=== PATIENT | female | born 1935 | race Caucasian/White ===

== ENCOUNTER 2017-07-21 11:06 | Inpatient (IN) | payer MEDICARE ==
[2017-07-21] VITALS (15 sets, daily range): BP systolic 71–125; BP diastolic 45–65; PULSE 62–81; RESP 16–37; TEMP 98–98.5; O2SAT 97–100
[~2017-07-21] VITALS: Ht 160 cm; Wt 66.9 kg
[2017-07-21] MEDS ORDERED: LISI2.5T3 PO (11:53)
[2017-07-21] MEDS ORDERED: FLUT50SP EACH NARE (11:53)
[2017-07-21] MEDS ORDERED: FURO40TA PO (11:53)
[2017-07-21] MEDS ORDERED: ASPI81TA23 PO (11:53)
[2017-07-21] MEDS ORDERED: FOSA70TA PO (11:53)
[2017-07-21] MEDS ORDERED: VITA1000 PO (11:53)
[2017-07-21] MEDS ORDERED: FURO1TAB62 PO (11:53)
[2017-07-21] MEDS ORDERED: PLAQ200T PO (11:53)
[2017-07-21] MEDS ORDERED: POTA-163 PO (11:53)
[2017-07-21] MEDS ORDERED: FOLI1TAB6 PO (11:53)
[2017-07-21] MEDS ORDERED: METH2.5T PO (11:53)
[2017-07-21] MEDS ORDERED: CALTCHW5 PO (11:53)
[2017-07-21] MEDS ORDERED: LEVOTAB PO (11:53)
[2017-07-21] MEDS ORDERED: PHENYLEPH/NS 1000 MCG/10 ML SYR IV ONE (12:00)
[2017-07-21] MEDS ORDERED: ePHEDrine/NS 25 MG/5 ML SYRINGE IV ONE (12:00)
[2017-07-21] MEDS ORDERED: PROPOFOL 200 MG/20 ML AMP IV ONE (12:00)
[2017-07-21] MEDS ORDERED: LIDOCAINE HCL 1% PF 5 ML SYRINGE OTHER ONE (12:00)
[2017-07-21] MEDS ORDERED: SODIUM CHLOR 0.9% 250 ML INJ 250 ML IV ONE ×2 (12:00→12:30)
--- NOTE | 2017-07-21 12:02 | PD ---
HPI Chief Complaint: Dizziness Time Seen by Provider: 11:41 Travel History International Travel<30 days: No Contact w/Intl Traveler<30days: No Traveled to known affect area: No History of Present Illness HPI 82-year-old female states that she flew here yesterday from [place] and she's been feeling lightheaded and ill since. She states she had 2 episodes of nonbloody diarrhea but denies any specific pain, fever or other concurrent complaints. She states she feels worse when she moves around. She states that she took her blood pressure medication this morning. She states they have been lowering her blood pressure medication recently. She states she is here on vacation. She denies other modifying factors. PFSH Past Medical History Hx Anticoagulant Therapy: Yes (ASA 81MG DAILY) Autoimmune Disease: Yes (RA) Congestive Heart Failure: Yes ?: Not Past Surgical History Tonsillectomy: Yes Other Surgery: Yes (VEIN STRIPPING) Social History Alcohol Use: Yes (COUPLE TIMES PER WEEK) Tobacco Use: No Substance Use: No Allergies-Medications (Allergen,Severity, Reaction): Coded Allergies: ciprofloxacin (Verified Allergy, Unknown, 07/21/17) Reported Meds & Prescriptions Reported Meds & Active Scripts Active Reported Fosamax (Alendronate Sodium) 70 Mg Tab 70 Mg PO Q7D Methotrexate 2.5 Mg Tab 12.5 Mg PO Q7D Plaquenil (Hydroxychloroquine Sulfate) 200 Mg Tab 200 Mg PO DAILY Take with food Vitamin D-1000 (Cholecalciferol) 1,000 Unit Tab 1,000 Units PO DAILY Caltrate 600+D Chew (Calcium Carbonate-Vitamin D Chew) 600-400 Mg-Unit Chew 1 Tab PO DAILY Folic Acid 1 Mg Tablet 1 Mg PO BID Fluticasone Nasal [place] 50 Mcg/Act Naspr 50 Mcg EACH NARE BID 50 mcg/spray Levocetirizine 5 Mg Tab 5 Mg PO DAILY Aspirin EC (Aspirin) 81 Mg Tabdr 81 Mg PO DAILY Lisinopril 2.5 Mg Tab 1.25 Mg PO DAILY Lasix (Furosemide) 20 Mg Tab 20 Mg PO EVERY OTHER DAY Furosemide 40 Mg Tab 40 Mg PO EVERY OTHER DAY Potassium Chloride ER (Potassium Chloride) 20 Meq Tab 20 Meq PO DAILY Review of Systems Except as stated in HPI: all other systems reviewed are Neg Physical Exam Narrative GENERAL: Thin, well-developed patient. SKIN: Warm and dry. HEAD: Normocephalic and atraumatic. EYES: No injection or drainage. ENT: No nasal drainage noted. NECK: Supple, trachea midline. CARDIOVASCULAR: Regular rate and rhythm RESPIRATORY: Breath sounds equal bilaterally. No accessory muscle use. GASTROINTESTINAL: Abdomen soft, non-tender, nondistended. EXTREMITIES: No edema. NEUROLOGICAL: Awake and alert. Motor and sensory grossly within normal limits. Normal speech. Data Data Last Documented VS Vital Signs Date Time Temp Pulse Resp B/P (MAP) Pulse Ox O2 Delivery O2 Flow Rate FiO2 07/21/17 12:35 80 18 79/50 (60) 97 Room Air 07/21/17 11:24 98.5 Orders Orders Magnesium (Mg) (07/21/17 11:47) Phosphorus (Po4) (07/21/17 11:47) Complete Blood Count With Diff (07/21/17 11:47) Comprehensive Metabolic Panel (07/21/17 11:47) Urinalysis - C+S If Indicated (07/21/17 11:47) Act Partial Throm Time (Ptt) (07/21/17 11:47) Prothrombin Time / Inr (Pt) (07/21/17 11:47) Chest, Single Ap (07/21/17 ) Electrocardiogram (07/21/17 ) Iv Access Insert/Monitor (07/21/17 11:47) Ecg Monitoring (07/21/17 11:47) Oximetry (07/21/17 11:47) Influenzae A/B Antigen (07/21/17 11:47) Sodium Chlor 0.9% 250 Ml Inj (Ns 250 Ml (07/21/17 12:00) Lactic Acid (07/21/17 11:47) Troponin I (07/21/17 11:56) Ckmb (Isoenzyme) Profile (07/21/17 11:56) Blood Culture (07/21/17 12:20) Vancomycin Inj (Vancomycin Inj) (07/21/17 12:20) Piperacil-Tazo 4.5 Gm Premix (Zosyn 4.5 (07/21/17 12:20) Sodium Chlor 0.9% 250 Ml Inj (Ns 250 Ml (07/21/17 12:30) CKMB (07/21/17 11:51) CKMB% (07/21/17 11:51) Aspirin (Aspirin) (07/21/17 12:45) Sodium Chlorid 0.9% 500 Ml Inj (Ns 500 M (07/21/17 12:45) Urine Culture (07/21/17 12:24) Ct Abd/Pel W/O Iv Contrast (07/21/17 ) Admit Order (Ed Use Only) (07/21/17 12:52) Labs Laboratory Tests Test 07/21/17 11:51 07/21/17 12:24 White Blood Count 21.1 TH/MM3 Red Blood Count 3.65 MIL/MM3 Hemoglobin 12.4 GM/DL Hematocrit 37.4 % Mean Corpuscular Volume 102.3 FL Mean Corpuscular Hemoglobin 34.0 PG Mean Corpuscular Hemoglobin Concent 33.2 % Red Cell Distribution Width 13.3 % Platelet Count 76 TH/MM3 Mean Platelet Volume 10.1 FL CBC Comment AUTO DIFF Differential Total Cells Counted 100 Neutrophils % (Manual) 71 % Band Neutrophils % 22 % Lymphocytes % 2 % Monocytes % 2 % Neutrophils # (Manual) 20.3 TH/MM3 Metamyelocytes 3 % Differential Comment FINAL DIFF MANUAL Platelet Estimate LOW Platelet Morphology Comment NORMAL Prothrombin Time 15.4 SEC Prothromb Time International Ratio 1.5 RATIO Activated Partial Thromboplast Time 31.9 SEC Blood Urea Nitrogen 45 MG/DL Creatinine 3.10 MG/DL Random Glucose 85 MG/DL Total Protein 6.6 GM/DL Albumin 3.4 GM/DL Calcium Level 8.9 MG/DL Phosphorus Level 4.1 MG/DL Magnesium Level 1.8 MG/DL Alkaline Phosphatase 131 U/L Aspartate Amino Transf (AST/SGOT) 182 U/L Alanine Aminotransferase (ALT/SGPT) 126 U/L Total Bilirubin 2.2 MG/DL Sodium Level 134 MEQ/L Potassium Level 4.9 MEQ/L Chloride Level 99 MEQ/L Carbon Dioxide Level 23.1 MEQ/L Anion Gap 12 MEQ/L Estimat Glomerular Filtration Rate 14 ML/MIN Lactic Acid Level 3.8 mmol/L Total Creatine Kinase 277 U/L Creatine Kinase MB 5.6 NG/ML Creatine Kinase MB % 2.0 % Troponin I 1.56 NG/ML Urine Collection Type CLEAN CATCH Urine Color YELLOW Urine Turbidity MOD Urine pH 5.0 Urine Specific [place] 1.025 Urine Protein 30 mg/dL Urine Glucose (UA) NEG mg/dL Urine Ketones TRACE mg/dL Urine Occult Blood LARGE Urine Nitrite NEG Urine Bilirubin NEG Urine Leukocyte Esterase MOD Urine RBC 100-200 /hpf Urine WBC 25-49 /hpf Urine WBC Clumps MOD Urine Squamous Epithelial Cells 0-5 /hpf Urine Renal Epithelial Cells > 8 /hpf Urine Bacteria MANY /hpf Urine Yeast (Budding) FEW Microscopic Urinalysis Comment CULTURE INDICATED Urine Collection Time 12:24 [facility] Medical Decision Making Medical Screen Exam Complete: Yes Emergency Medical Condition: Yes Medical Record Reviewed: Yes (past history confirmed) Interpretation(s) EKG shows underlying artifact that is difficult to determine rhythm that appears irregular with left bundle branch block without prior for comparison CBC & BMP Diagram 07/21/17 11:51 Total Protein 6.6, Albumin 3.4, Calcium Level 8.9, Phosphorus Level 4.1, Magnesium Level 1.8, Alkaline Phosphatase 131 H, Aspartate Amino Transf (AST/ SGOT) 182 H, Alanine Aminotransferase (ALT/SGPT) 126 H, Total Bilirubin 2.2 H Last 24 hours Impressions Chest X-Ray 07/21/17 0000 Signed Impressions: Service Date/Time: Friday, July 21, 2017 11:56 - CONCLUSION: 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 No acute cardiopulmonary process. 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 No acute cardiopulmonary process. Edward Sims MD Abdomen/Pelvis CT 07/21/17 0000 Signed Impressions: Service Date/Time: Friday, July 21, 2017 13:28 - CONCLUSION: 8 x 5 mm calculus left ureter level of L4 with secondary obstructive uropathy. Gallstones. Uncomplicated diverticuli of the colon. Degenerative changes of the lumbar spine. Edward Sims MD Differential Diagnosis URI, anemia, renal failure, gastroenteritis.... Narrative Course Will check blood work, chest x-ray, EKG and dose with small amount of IV fluids and reevaluate Patient has elevated white blood cell count. Will add on blood cultures and dose with broad-spectrum coverage of vancomycin and Zosyn. Lactate has came back at 3.8. If urinalysis shows no signs of infection she will need for possible CT imaging to rule out occult infection. She was given initial 250 cc bolus given CHF history but now that she also has concurrent acute renal failure and no signs of active CHF Will repeat this and she will likely need more fluids. She will need to be monitored closely in the ICU given persistent hypotension and need for gentle hydration. She also has a concurrent HI without active chest pain. We'll give aspirin for this and this will need to be monitored. given ct will discuss with urology and updated icu physician, patient will now be given a total of 1500 mL's of normal saline to keep blood pressure is stable. Given her history of CHF fluids have been given slower Critical Care Narrative Aggregate critical care time was 110 minutes. Time to perform other separately billable procedures was not included in the critical care time. My time did not include minutes spent treating any other patients simultaneously or on activities that did not directly contribute to the patient's treatment. The services I provided to this patient were to treat and/or prevent clinically significant deterioration that could result in: shock, I provided critical care services requiring my management, as noted below: Chart data review, documentation time, medication orders and management, vital sign assessments/reviewing monitor data, ordering and reviewing lab tests, ordering and interpreting/reviewing x-rays and diagnostic studies, care of the patient and discussion of the patient with the admitting physicians. Sepsis Criteria SIRS Criteria (2 or more): WBC > 61067, < 4000 or > 10% bands Sepsis Criteria (SIRS+source): Infect source susp/known Severe Sepsis (+one): Lactate >2 Criteria Outcome: Meets severe sepsis criteria Physician Communication Physician Communication dr barrientos agrees to admit in [facility] with ct abdomen, requests to talk with cardiology dr lei states no another intervention at this time dr monaco requests to talk with IR dr kulkarni states patient should get stent given current scenario dr monaco states to have patient go straight to the OR and was given dr lei' s contact information dr barrientos updated and is on his way to see patient dr monaco called at [phone] and evac here now, given updated, dr barrientos at bedside Diagnosis Primary Impression: Hypotension Qualified Codes: I95.9 - Hypotension, unspecified Additional Impressions: Renal failure Qualified Codes: N19 - Unspecified kidney failure NSTEMI (non-ST elevated myocardial infarction) Leukocytosis Qualified Codes: D72.829 - Elevated white blood cell count, unspecified Lactic acidosis Ureteral stone with hydronephrosis Sepsis Qualified Codes: A41.9 - Sepsis, unspecified organism Admitting Information Admitting Physician Requests: Admit Sammi Giron MD Jul 21, 2017 12:02
--- NOTE | 2017-07-21 12:04 | RADRPT ---
EXAM DATE/TIME: 07/21/2017 11:56 [facility] COMPARISON: No previous studies available for comparison. INDICATIONS : Dizziness, cough. MEDICAL HISTORY : Congestive heart failure. SURGICAL HISTORY : None. ENCOUNTER: Initial ACUITY: 2 days PAIN SCORE: 0/10 LOCATION: Bilateral chest FINDINGS: A single view of the chest demonstrates the lungs to be symmetrically aerated without evidence of mas s, infiltrate or effusion. The cardiomediastinal contours demonstrate atherosclerotic changes aorta and compensated borderline cardiomegaly. Osseous structures are intact. 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 No acute cardiopulmonary process. Edward Sims MD on July 21, 2017 at 12:02 Board Certified Radiologist. This report was verified electronically.
[2017-07-21 12:12] LABS: HEMATOCRIT 37.4 % (35.0-46.0); HEMOGLOBIN 12.4 GM/DL (11.6-15.3); MEAN CELL VOLUME 102.3 FL (80.0-100.0); MEAN CORPUSCULAR HGB CONC 33.2 % (32.0-36.0); MEAN PLATELET VOLUME 10.1 FL (7.0-11.0); PLATELET COUNT 76 TH/MM3 (150-450); RED BLOOD COUNT 3.65 MIL/MM3 (4.00-5.30); RED CELL DISTRIBUTION WIDTH 13.3 % (11.6-17.2); WHITE BLOOD COUNT 21.1 TH/MM3 (4.0-11.0)
[2017-07-21 12:18] LABS: CHLORIDE 99 MEQ/L (98-107); INTERNATIONAL NORMALIZED RATIO 1.5 RATIO; PROTHROMBIN TIME - PATIENT 15.4 SEC (9.8-11.6); SODIUM (NA) 134 MEQ/L (136-145)
[2017-07-21] MEDS ORDERED: VANCOMYCIN INJ 1,000 MG in SODIUM CHLOR 0.9% 250 ML INJ 250 ML IV STA (12:20)
[2017-07-21] MEDS ORDERED: PIPERACIL-TAZO 4.5 GM PREMIX 100 ML IV STA (12:20)
[2017-07-21 12:21] LABS: ALBUMIN 3.4 GM/DL (3.4-5.0); BICARBONATE 23.1 MEQ/L (21.0-32.0); BLOOD UREA NITROGEN 45 MG/DL (7-18); CALCIUM 8.9 MG/DL (8.5-10.1); GLUCOSE,RANDOM 85 MG/DL (74-106); MAGNESIUM 1.8 MG/DL (1.5-2.5)
[2017-07-21 12:23] LABS: TROPONIN I 1.56 NG/ML (0.02-0.05)
[2017-07-21 12:24] LABS: ALT (GPT) 126 U/L (10-53)
[2017-07-21 12:25] LABS: AST (GOT) 182 U/L (15-37); GLOMERULAR FILTRATION RATE 14 ML/MIN (>89); PHOSPHORUS 4.1 MG/DL (2.5-4.9)
[2017-07-21 12:26] LABS: TOTAL BILIRUBIN ADULT 2.2 MG/DL (0.2-1.0); TOTAL PROTEIN 6.6 GM/DL (6.4-8.2)
[2017-07-21 12:27] LABS: ALKALINE PHOSPHATASE 131 U/L (45-117)
[2017-07-21 12:33] LABS: BANDS 22 % (0-6); LYMPHOCYTES 2 % (9-44); METAMYELOCYTES 3 % (0-1); MONOCYTES 2 % (0-8); NEUTROPHIL # MANUAL DIFF 20.3 TH/MM3 (1.8-7.7); POLYS (SEG NEUTROPHILS) 71 % (16-70)
[2017-07-21 12:36] LABS: BLOOD, URINE LARGE (NEG); GLUCOSE,URINE NEG (NEG); KETONE, URINE TRACE mg/dL (NEG); NITRITE,URINE NEG (NEG); URINE LEUKOCYTE ESTERASE MOD (NEG)
[2017-07-21 12:38] LABS: BILIRUBIN, URINE NEG (NEG)
[2017-07-21 12:43] LABS: URINE COLOR YELLOW (YELLW/STRAW)
[2017-07-21 12:44] LABS: RBC, URINE 100-200 /hpf (0-3); RENAL EPITHELIAL CELLS > 8 /hpf; SQUAMOUS EPITHELIAL CELL URINE 0-5 /hpf (0-5); WHITE BLOOD CELL CLUMPS MOD
[2017-07-21 12:45] LABS: BACTERIA, URINE MANY /hpf
[2017-07-21] MEDS ORDERED: SODIUM CHLORID 0.9% 500 ML INJ 500 ML IV ONE (12:45)
[2017-07-21] MEDS ORDERED: ASPIRIN 325 MG TAB PO ONE (12:45)
--- NOTE | 2017-07-21 12:55 | EKG ---
Date Performed: 07/21/2017 Time Performed: 11:44:50 PTAGE: 82 years EKG: Baseline artifact present Unclear underlying rhythm LEFT BUNDLE BRANCH BLOCK ABNORMAL ECG NO PREVIOUS TRACING DOCTOR: Adilson Mercado Interpretating Date/Time 07/21/2017 12:53:29
--- NOTE | 2017-07-21 14:10 | RADRPT ---
EXAM DATE/TIME: 07/21/2017 13:28 [facility] COMPARISON: No previous studies available for comparison. INDICATIONS : General weakness. Diarrhea. Dizziness. ORAL CONTRAST: No oral contrast ingested. RADIATION DOSE: 12.05 CTDIvol (mGy) MEDICAL HISTORY : Congestive heart failure. SURGICAL HISTORY : Tonsillectomy. ENCOUNTER: Initial ACUITY: 1 day PAIN SCALE: 0/10 LOCATION: Abdomen. TECHNIQUE: Volumetric scanning of the abdomen and pelvis was performed. Using automated exposure control and ad justment of the mA and/or kV according to patient size, radiation dose was kept as low as reasonably achievable to obtain optimal diagnostic quality images. DICOM format image data is available electro nically for review and comparison. FINDINGS: Lung bases are clear. The osteoporotic bony structures reveal degenerative changes of the lower lumba r spine degenerative disc disease a vacuum sign L5-S1 and L4-5 with probable grade 1 spondylolisthesi s and facet arthritic changes. Vascular calcifications noted in the aorta and iliac vessels without e vidence of aneurysm formation. Urinary bladder is distended in the pelvis with normal uterus and adne xa. Scattered diverticuli uncomplicated or noted of the distal descending and primarily sigmoid colon . Liver is normal as is spleen with normal pancreas. Adrenal glands are benign. Gallstones are noted in the gallbladder which is impacted the largest being 4.3 cm in size. Uterus and adnexa are negative . There is a 8 x 5 mm calculus in left uret er at the level of L4 with secondary obstructive uropathy. CONCLUSION: 8 x 5 mm calculus left ureter level of L4 with secondary obstructive uropathy. Gallstones. Uncomplicated diverticuli of the colon. Degenerative changes of the lumbar spine. Edward Sims MD on July 21, 2017 at 13:59 Board Certified Radiologist. This report was verified electronically.
[2017-07-21] MEDS ORDERED: SODIUM CHLORIDE 0.9% FLUSH 10 ML FLUSH IV FLUSH PRN (15:45)
[2017-07-21] MEDS ORDERED: MAGNESIUM HYDROXIDE SUSP 30 ML CUP PO PRN (15:45)
[2017-07-21] MEDS ORDERED: BISACODYL 10 MG SUPP RECTAL PRN (15:45)
[2017-07-21] MEDS ORDERED: CHLORHEXIDINE GLUCONATE 2 % 1 PACK (2 CLOTHS) TOP PRN (15:45)
[2017-07-21] MEDS ORDERED: Vancomycin Consult Pharmacy 1 EA OTHER SCH (15:45)
[2017-07-21] MEDS ORDERED: MISCELLANEOUS NURSING INFORMATION XX SCH (15:45)
[2017-07-21] MEDS ORDERED: ONDANSETRON HCL 4 MG/2 ML VIAL IV PUSH PRN (15:45)
[2017-07-21] MEDS ORDERED: SENNOSIDES 8.6 MG TAB PO PRN (15:45)
[2017-07-21] MEDS ORDERED: LACTULOSE SYRUP 20 GM/30 ML CUP PO PRN (15:45)
[2017-07-21] MEDS ORDERED: TEMAZEPAM 15 MG CAP PO PRN (15:45)
[2017-07-21] MEDS ORDERED: SODIUM CHLOR 0.9% 1000 ML INJ 1,000 ML IV ONE (15:45)
--- NOTE | 2017-07-21 16:09 | HHI.HP ---
HPI Service Critical Care Medicine Primary Care Physician Unknown Admission Diagnosis hypotension, nstemi, renal failure Diagnosis: (1) Septic shock Diagnosis: Principal (2) Non-ST elevated myocardial infarction Diagnosis: Principal (3) Obstructive uropathy Diagnosis: Principal (4) Acute renal failure Diagnosis: Principal (5) Elevated liver enzymes Diagnosis: Principal (6) Lactic acidosis Diagnosis: Principal (7) Leukocytosis Diagnosis: Principal Chief Complaint: Fever and chills Travel History International Travel<30 Days: No Contact w/Intl Traveler <30 Da: No Traveled to Known Affected Are: No Sepsis Criteria SIRS Criteria (2 or more): Temp > 100.9 or < 96.8, WBC > 35921, < 4000 or > 10 % bands Sepsis Criteria (SIRS+source): Infect source susp/known Severe Sepsis (+one): Organ Dysfunction, Hypotension, Lactate >2 Septic Shock Criteria: Unresponsive to 30ml/kg fluid bolus Multiple Organ Dysfunction Syn: Evidence -2 organs failing Criteria Outcome: Meets multiple organ dys. criteria History of Present Illness This is a 82-year-old female with known history of rheumatoid arthritis, congestive heart failure, hypotension who presented to hospital because of fever and chills. Patient states that she is in normal state of health when she flew down here from [place] yesterday. While she was on a plane she developed fever and rigors. Patient states when she was walking yesterday she was very cold because of the eardrops at the airport. He stated a hotel last night and she did not improve and she continued to have chills and rigors. Because of that reason she came to the ER for evaluation. Patient had workup done emergency department found to have multiple abnormal findings with significant hypotension, however patient states that she has low blood pressure on a regular basis and this was diagnosed in April in [place]. Patient did have acute renal failure and after CT scan was performed to indicated patient had obstructed uropathy of the left ureter with multiple organ failure to include hypotension, liver enzyme elevation, renal failure. Patient was given minimal IV bolus in the emergency department, will give further IV fluid for blood pressure management. However patient does have history of hypotension which this could be her normal blood pressure. Patient was found to have elevated troponin with left bundle branch block on EKG. Cardiology was consulted for recommendations. Patient recommended ICU admission for critical care management. Patient be transferred to [facility] [place] for continued care. Review of Systems Constitutional: COMPLAINS OF: Fever, Chills, DENIES: Diaphoretic episodes, Fatigue, Weight gain, Weight loss, Dizziness, Change in appetite, Night Sweats Ears, nose, mouth, throat: DENIES: Hearing loss, Vertigo, Nasal discharge, Throat pain, Ear Pain, Running Nose, Sinus Pain, Toothache, Odynophagia Respiratory: DENIES: Apneas, Cough, Snoring, Wheezing, Hemoptysis, Sputum production, Shortness of breath Cardiovascular: DENIES: Chest pain, Palpitations, Syncope, Dyspnea on Exertion , Lower Extremity Edema, Orthopnea Gastrointestinal: DENIES: Abdominal pain, Black stools, Bloody stools, Constipation, Diarrhea, Nausea, Vomiting, Difficulty Swallowing, Anorexia Neurologic: DENIES: Abnormal gait, Headache, Localized weakness, Paresthesias, Seizures, Speech Problems, Tremor, Poor Balance Past Family Social History Allergies: Coded Allergies: ciprofloxacin (Verified Allergy, Unknown, 07/21/17) Past Medical History Low blood pressure Congestive heart failure Rheumatoid arthritis Past Surgical History Tonsillectomy Carpal tunnel surgery Vein surgery of legs Reported Medications Reported Meds & Active Scripts Active Reported Fosamax (Alendronate Sodium) 70 Mg Tab 70 Mg PO Q7D Methotrexate 2.5 Mg Tab 12.5 Mg PO Q7D Plaquenil (Hydroxychloroquine Sulfate) 200 Mg Tab 200 Mg PO DAILY Take with food Vitamin D-1000 (Cholecalciferol) 1,000 Unit Tab 1,000 Units PO DAILY Caltrate 600+D Chew (Calcium Carbonate-Vitamin D Chew) 600-400 Mg-Unit Chew 1 Tab PO DAILY Folic Acid 1 Mg Tablet 1 Mg PO BID Fluticasone Nasal [place] 50 Mcg/Act Naspr 50 Mcg EACH NARE BID 50 mcg/spray Levocetirizine 5 Mg Tab 5 Mg PO DAILY Aspirin EC (Aspirin) 81 Mg Tabdr 81 Mg PO DAILY Lisinopril 2.5 Mg Tab 1.25 Mg PO DAILY Lasix (Furosemide) 20 Mg Tab 20 Mg PO EVERY OTHER DAY Furosemide 40 Mg Tab 40 Mg PO EVERY OTHER DAY Potassium Chloride ER (Potassium Chloride) 20 Meq Tab 20 Meq PO DAILY Family History Reviewed is significant for mother having breast cancer, father with heart disease Social History Patient denies any tobacco or illicit drugs. Does drink alcohol occasionally. Physical Exam Vital Signs Vital Signs Date Time Temp Pulse Resp B/P (MAP) Pulse Ox O2 Delivery O2 Flow Rate FiO2 07/21/17 14:48 75 18 86/50 (62) 98 Room Air 07/21/17 14:23 73 18 78/50 (59) 98 Room Air 07/21/17 13:08 68 16 82/49 (60) 98 Room Air 07/21/17 12:35 80 18 79/50 (60) 97 Room Air 07/21/17 12:11 75 18 75/45 (55) 98 Room Air 07/21/17 12:05 73 18 71/47 (55) 98 Room Air 07/21/17 11:59 71 99 Room Air 07/21/17 11:58 79 18 87/47 (60) 99 Room Air 07/21/17 11:56 99 Room Air 07/21/17 11:24 98.5 81 18 74/49 (57) 99 Physical Exam GENERAL: Well-developed, well-nourished, in no acute distress. alert and orientated HEENT: Head is normocephalic without any lesions or masses noted. Facial features are symmetric. Eyes: Pupils equal round reactive to light. Extraocular muscles are intact. Conjunctivae were clear. Oropharyngeal: Pharynx without any erythema edema. Tongue is midline without deviation. Buccal mucosa is moist without any masses or lesions NECK: Supple without any masses. Trachea midline no deviation. No JVD, no bruits are appreciated CARDIAC: Regular rhythm, regular rate. S1/S2 are heard. 2/6 ejection murmur, no gallops or rubs. LUNGS: Clear to auscultation bilaterally. No wheeze, rhonchi or rales. No use of accessory muscles on inspiration or expiration. ABDOMEN: Soft, nontender. Nondistended. Bowel sounds heard in all 4 quadrants. No organomegaly or masses. Negative rebound, negative guarding EXTREMITIES: No edema, pulses are equal bilaterally. No cyanosis or clubbing NEUROLOGY: Mood and affect appear appropriate. Cranial nerves II through XII grossly intact. Muscle strength 5/5 in upper and lower extremities bilaterally. Deep tendon reflexes are 2+ in upper and lower extremities bilaterally. Laboratory Laboratory Tests Test 07/21/17 11:51 07/21/17 12:24 White Blood Count 21.1 Red Blood Count 3.65 Hemoglobin 12.4 Hematocrit 37.4 Mean Corpuscular Volume 102.3 Mean Corpuscular Hemoglobin 34.0 Mean Corpuscular Hemoglobin Concent 33.2 Red Cell Distribution Width 13.3 Platelet Count 76 Mean Platelet Volume 10.1 CBC Comment AUTO DIFF Differential Total Cells Counted 100 Neutrophils % (Manual) 71 Band Neutrophils % 22 Lymphocytes % 2 Monocytes % 2 Neutrophils # (Manual) 20.3 Metamyelocytes 3 Differential Comment FINAL DIFF MANUAL Platelet Estimate LOW Platelet Morphology Comment NORMAL Prothrombin Time 15.4 Prothromb Time International Ratio 1.5 Activated Partial Thromboplast Time 31.9 Blood Urea Nitrogen 45 Creatinine 3.10 Random Glucose 85 Total Protein 6.6 Albumin 3.4 Calcium Level 8.9 Phosphorus Level 4.1 Magnesium Level 1.8 Alkaline Phosphatase 131 Aspartate Amino Transf (AST/SGOT) 182 Alanine Aminotransferase (ALT/SGPT) 126 Total Bilirubin 2.2 Sodium Level 134 Potassium Level 4.9 Chloride Level 99 Carbon Dioxide Level 23.1 Anion Gap 12 Estimat Glomerular Filtration Rate 14 Lactic Acid Level 3.8 Total Creatine Kinase 277 Creatine Kinase MB 5.6 Creatine Kinase MB % 2.0 Troponin I 1.56 Urine Collection Type CLEAN CATCH Urine Color YELLOW Urine Turbidity MOD Urine pH 5.0 Urine Specific [place] 1.025 Urine Protein 30 Urine Glucose (UA) NEG Urine Ketones TRACE Urine Occult Blood LARGE Urine Nitrite NEG Urine Bilirubin NEG Urine Leukocyte Esterase MOD Urine RBC 100-200 Urine WBC 25-49 Urine WBC Clumps MOD Urine Squamous Epithelial Cells 0-5 Urine Renal Epithelial Cells > 8 Urine Bacteria MANY Urine Yeast (Budding) FEW Microscopic Urinalysis Comment CULTURE INDICATED Urine Collection Time 12:24 Date/Time Source Procedure Growth Status 07/21/17 12:30 Blood Peripheral Aerobic Blood Culture Pending Received 07/21/17 12:30 Blood Peripheral Anaerobic Blood Culture Pending Received 07/21/17 11:50 Nasal Aspirate Influenza Types A,B Antigen (JAVID) - Final NEGATIVE FOR FLU A AND B ANTIGEN.... Complete 07/21/17 12:24 Urine Clean Catch Urine Culture Pending Received Result Diagram: 07/21/17 1151 07/21/17 1151 Imaging Last Impressions Chest X-Ray 07/21/17 0000 Signed Impressions: Service Date/Time: Friday, July 21, 2017 11:56 - CONCLUSION: 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 No acute cardiopulmonary process. Edward Sims MD Abdomen/Pelvis CT 07/21/17 0000 Signed Impressions: Service Date/Time: Friday, July 21, 2017 13:28 - CONCLUSION: 8 x 5 mm calculus left ureter level of L4 with secondary obstructive uropathy. Gallstones. Uncomplicated diverticuli of the colon. Degenerative changes of the lumbar spine. Edward Sims MD Septic Shock Reassessment Septic shock perfusion: reassessment completed Caprini VTE Risk Assessment Caprini VTE Risk Assessment: Mod/High Risk (score >= 2) Caprini Risk Assessment Model Point Value = 1 Point Value = 2 Point Value = 3 Point Value = 5 Age 41-60 Minor surgery BMI > 25 kg/m2 Swollen legs Varicose veins or History of unexplained or recurrent spontaneous Oral contraceptives or hormone replacement Sepsis (< 1 month) Serious lung disease, including pneumonia (< 1 month) Abnormal pulmonary function Acute myocardial infarction Congestive heart failure (< 1 month) History of inflammatory bowel disease Medical patient at bed rest Age 61-74 Arthroscopic surgery Major open surgery (> 45 min) Laparoscopic surgery (> 45 min) Malignancy Confined to bed (> 72 hours) Immobilizing plaster cast Central venous access Age >= 75 History of VTE Family history of VTE Factor V Leiden Prothrombin [id number] Lupus anticoagulant Anticardiolipin antibodies Elevated serum homocysteine Heparin-induced thrombocytopenia Other congenital or acquired thrombophilia Stroke (< 1 month) Elective arthroplasty Hip, pelvis, or leg fracture Acute spinal cord injury (< 1 month) Prophylaxis Regimen Total Risk Factor Score Risk Level Prophylaxis Regimen 0-1 Low Early ambulation 2 Moderate Order ONE of the following: *Sequential Compression Device (SCD) *Heparin 5000 units SQ BID 3-4 Higher Order ONE of the following medications: *Heparin 5000 units SQ TID *Enoxaparin/Lovenox 40 mg SQ daily (WT < 150 kg, CrCl > 30 mL/min) *Enoxaparin/Lovenox 30 mg SQ daily (WT < 150 kg, CrCl > 10-29 mL/min) *Enoxaparin/Lovenox 30 mg SQ BID (WT < 150 kg, CrCl > 30 mL/min) AND/OR *Sequential Compression Device (SCD) 5 or more Highest Order ONE of the following medications: *Heparin 5000 units SQ TID (Preferred with Epidurals) *Enoxaparin/Lovenox 40 mg SQ daily (WT < 150 kg, CrCl > 30 mL/min) *Enoxaparin/Lovenox 30 mg SQ daily (WT < 150 kg, CrCl > 10-29 mL/min) *Enoxaparin/Lovenox 30 mg SQ BID (WT < 150 kg, CrCl > 30 mL/min) AND *Sequential Compression Device (SCD) Assessment and Plan Problem List: (1) Septic shock ICD Code: A41.9 - Sepsis, unspecified organism; R65.21 - Severe sepsis with septic shock (2) Non-ST elevated myocardial infarction ICD Code: I21.4 - Non-ST elevation (NSTEMI) myocardial infarction (3) Obstructive uropathy ICD Code: N13.9 - Obstructive and reflux uropathy, unspecified (4) Acute renal failure ICD Code: N17.9 - Acute kidney failure, unspecified (5) Elevated liver enzymes ICD Code: R74.8 - Abnormal levels of other serum enzymes (6) Leukocytosis ICD Code: D72.829 - Elevated white blood cell count, unspecified Status: Acute (7) Lactic acidosis ICD Code: E87.2 - Acidosis Status: Acute Assessment and Plan NEUROLOGY Patient clinically stable. Continue monitor neurological function PULMONOLOGY Clinically stable, continue O2 supplementation maintain O2 sats greater than 92% Incentive spirometry CARDIOLOGY Septic shock History of low blood pressure History of congestive heart failure Non-ST elevated myocardial infarctions Left bundle branch block We'll give 1 L normal saline bolus Start D5 normal saline at 84 cc/h Monitor blood pressure keep map greater than 65 Hold patient blood pressure medication this time Consult cardiology for recommendations Continue to trend cardiac enzymes Obtain echocardiogram Unable to use beta ayaz, nitroglycerin at this time due to low blood pressure Unable to use heparin IV secondary patient going to [place] GASTROENTEROLOGY Elevated liver enzymes Could be secondary to the hypoperfusion Monitor liver enzymes CT scan does indicate cholelithiasis with contracted gallbladder Obtain gallbladder ultrasound start healthy heart diet GENITOURINARY Obstructive uropathy with renal lithiasis in left ureter Acute renal failure Continue IV fluids Insert Kulkarni for input and output, strain all urine Consult urology for recommendations, patient going to [place] INFECTIOUS DISEASE Septic shock Leukocytosis with bandemia Lactic acidosis. Urinary tract infection Patient started on vancomycin and Zosyn Continue trend lactic acid Monitor cultures ENDOCRINOLOGY Check TSH Monitor glucose, start Accu-Cheks with sliding scale insulin if needed HEMATOLOGY Stable this time Monitor and transfuse if hemoglobin below 8.0 PROPHYLAXIS DVT prevention with sequential compression devices, avoid chemical prophylaxis at this time due to patient going to [place] GI protection: Pepcid LINES Peripheral IVs CODE STATUS Full code Critical care time 60 minutes excluding procedures Problem Qualifiers (1) Leukocytosis: Qualified Codes: D72.829 - Elevated white blood cell count, unspecified Hermann Bridges Jul 21, 2017 16:09
--- NOTE | 2017-07-21 17:13 | PD.CONS ---
HPI Service Urology Consult Requested By Reason for Consult Obstructing Urolithiasis; Sepsis Primary Care Physician Unknown Diagnosis: (1) Septic shock ICD Code: A41.9 - Sepsis, unspecified organism; R65.21 - Severe sepsis with septic shock (2) Non-ST elevated myocardial infarction ICD Code: I21.4 - Non-ST elevation (NSTEMI) myocardial infarction (3) Obstructive uropathy ICD Code: N13.9 - Obstructive and reflux uropathy, unspecified (4) Acute renal failure ICD Code: N17.9 - Acute kidney failure, unspecified (5) Elevated liver enzymes ICD Code: R74.8 - Abnormal levels of other serum enzymes (6) Lactic acidosis ICD Code: E87.2 - Acidosis (7) Leukocytosis ICD Code: D72.829 - Elevated white blood cell count, unspecified History of Present Illness 82yo female admitted with left flank pain and concern for sepsis. Patient was initially at [facility] where she was found to have an elevated WBC 21, Renal failure of Cr 3.1, and hypotension. CT scan identified left obstructing ureterolithiasis with an 8mm stone. Patient was also found to have elevated troponins, felt to be associated with the septic stone. Currently denies pain. Review of Systems ROS Limitations: Clinical Condition Constitutional: COMPLAINS OF: Fever Eyes: DENIES: Blurred vision Ears, nose, mouth, throat: DENIES: Hearing loss Respiratory: DENIES: Cough Cardiovascular: DENIES: Chest pain Gastrointestinal: COMPLAINS OF: Abdominal pain Integumentary: DENIES: Rash Hematologic/lymphatic: DENIES: Bruising Neurologic: DENIES: Headache Psychiatric: DENIES: Anxiety Except as stated in HPI: all other systems reviewed are Neg Past Family Social History Past Medical History CHF RA Past Surgical History Tonsillectomy Carpal tunnel surgery Vein surgery of legs Reported Medications Reported Meds & Active Scripts Active Reported Fosamax (Alendronate Sodium) 70 Mg Tab 70 Mg PO Q7D Methotrexate 2.5 Mg Tab 12.5 Mg PO Q7D Plaquenil (Hydroxychloroquine Sulfate) 200 Mg Tab 200 Mg PO DAILY Take with food Vitamin D-1000 (Cholecalciferol) 1,000 Unit Tab 1,000 Units PO DAILY Caltrate 600+D Chew (Calcium Carbonate-Vitamin D Chew) 600-400 Mg-Unit Chew 1 Tab PO DAILY Folic Acid 1 Mg Tablet 1 Mg PO BID Fluticasone Nasal [place] 50 Mcg/Act Naspr 50 Mcg EACH NARE BID 50 mcg/spray Levocetirizine 5 Mg Tab 5 Mg PO DAILY Aspirin EC (Aspirin) 81 Mg Tabdr 81 Mg PO DAILY Lisinopril 2.5 Mg Tab 1.25 Mg PO DAILY Lasix (Furosemide) 20 Mg Tab 20 Mg PO EVERY OTHER DAY Furosemide 40 Mg Tab 40 Mg PO EVERY OTHER DAY Potassium Chloride ER (Potassium Chloride) 20 Meq Tab 20 Meq PO DAILY Allergies: Coded Allergies: ciprofloxacin (Verified Allergy, Unknown, 07/21/17) Active Ordered Medications Current Medications Medications (Trade) Dose Ordered Sig/Bill Route Start Time Stop Time Status Last Admin (NS Flush) 2 ml UNSCH PRN IV FLUSH 07/21/17 15:45 (NS Flush) 2 ml BID IV FLUSH 07/21/17 21:00 (Zofran Inj) 4 mg Q6H PRN IV PUSH 07/21/17 15:45 (Restoril) 15 mg HS PRN PO 07/21/17 15:45 Miscellaneous Information 1 Q361D XX 07/21/17 15:45 (Chlorhexidine 2% Cloth) 3 pack Taper DAILY@04 TOP 07/22/17 04:00 07/18/18 03:59 (Chlorhexidine 2% Cloth) 3 pack UNSCH PRN TOP 07/21/17 15:45 (Summer-Colace) 1 tab BID PO 07/21/17 21:00 (Milk Of Magnesia Liq) 30 ml Q12H PRN PO 07/21/17 15:45 (Senokot) 17.2 mg Q12H PRN PO 07/21/17 15:45 (Dulcolax Supp) 10 mg DAILY PRN RECTAL 07/21/17 15:45 (Lactulose Liq) 30 ml DAILY PRN PO 07/21/17 15:45 Piperacillin Sod/ Tazobactam Sod 50 ml @ 100 mls/hr Q12H IV 07/22/17 01:00 Pharmacy Profile Note 0 ml @ 0 mls/hr UNSCH OTHER 07/21/17 15:45 Dextrose/Sodium Chloride 1,000 ml @ 84 mls/hr [id number] IV 07/21/17 15:45 (Pepcid) 20 mg HS PO 07/21/17 21:00 Family History Reviewed is significant for mother having breast cancer, father with heart disease Social History Patient denies any tobacco or illicit drugs. Does drink alcohol occasionally. Physical Exam Vital Signs Date Time Temp Pulse Resp B/P (MAP) Pulse Ox O2 Delivery O2 Flow Rate FiO2 07/21/17 17:00 97.7 81 20 84/50 (61) 07/21/17 16:27 97.7 74 20 88/51 (63) 97 07/21/17 15:53 07/21/17 15:48 74 18 94/51 (65) 97 Room Air 07/21/17 14:48 75 18 86/50 (62) 98 Room Air 07/21/17 14:23 73 18 78/50 (59) 98 Room Air 07/21/17 14:20 98 Room Air 07/21/17 13:08 68 16 82/49 (60) 98 Room Air 07/21/17 12:35 80 18 79/50 (60) 97 Room Air 07/21/17 12:11 75 18 75/45 (55) 98 Room Air 07/21/17 12:05 73 18 71/47 (55) 98 Room Air 07/21/17 11:59 71 99 Room Air 07/21/17 11:58 79 18 87/47 (60) 99 Room Air 07/21/17 11:56 99 Room Air 07/21/17 11:24 98.5 81 18 74/49 (57) 99 Physical Exam GENERAL: This is a well-nourished, well-developed patient, in no apparent distress. SKIN: No rashes, ecchymoses or lesions. Cool and dry. HEAD: Atraumatic. Normocephalic. EYES: Extraocular motions intact. No scleral icterus. No injection or drainage. ENT: Nose without bleeding, purulent drainage. Airway patent. NECK: Trachea midline. CARDIOVASCULAR: Hypotensive RESPIRATORY: Nonlabored GASTROINTESTINAL: Abdomen soft, non-tender, nondistended. MUSCULOSKELETAL: Extremities without clubbing, cyanosis, or edema. NEUROLOGICAL: Awake and alert. Motor and sensory grossly within normal limits. Normal speech. Lab results reviewed: Yes Laboratory Tests Test 07/21/17 11:51 07/21/17 12:24 White Blood Count 21.1 Red Blood Count 3.65 Hemoglobin 12.4 Hematocrit 37.4 Mean Corpuscular Volume 102.3 Mean Corpuscular Hemoglobin 34.0 Mean Corpuscular Hemoglobin Concent 33.2 Red Cell Distribution Width 13.3 Platelet Count 76 Mean Platelet Volume 10.1 CBC Comment AUTO DIFF Differential Total Cells Counted 100 Neutrophils % (Manual) 71 Band Neutrophils % 22 Lymphocytes % 2 Monocytes % 2 Neutrophils # (Manual) 20.3 Metamyelocytes 3 Differential Comment FINAL DIFF MANUAL Platelet Estimate LOW Platelet Morphology Comment NORMAL Prothrombin Time 15.4 Prothromb Time International Ratio 1.5 Activated Partial Thromboplast Time 31.9 Blood Urea Nitrogen 45 Creatinine 3.10 Random Glucose 85 Total Protein 6.6 Albumin 3.4 Calcium Level 8.9 Phosphorus Level 4.1 Magnesium Level 1.8 Alkaline Phosphatase 131 Aspartate Amino Transf (AST/SGOT) 182 Alanine Aminotransferase (ALT/SGPT) 126 Total Bilirubin 2.2 Sodium Level 134 Potassium Level 4.9 Chloride Level 99 Carbon Dioxide Level 23.1 Anion Gap 12 Estimat Glomerular Filtration Rate 14 Lactic Acid Level 3.8 Total Creatine Kinase 277 Creatine Kinase MB 5.6 Creatine Kinase MB % 2.0 Troponin I 1.56 Urine Collection Type CLEAN CATCH Urine Color YELLOW Urine Turbidity MOD Urine pH 5.0 Urine Specific [place] 1.025 Urine Protein 30 Urine Glucose (UA) NEG Urine Ketones TRACE Urine Occult Blood LARGE Urine Nitrite NEG Urine Bilirubin NEG Urine Leukocyte Esterase MOD Urine RBC 100-200 Urine WBC 25-49 Urine WBC Clumps MOD Urine Squamous Epithelial Cells 0-5 Urine Renal Epithelial Cells > 8 Urine Bacteria MANY Urine Yeast (Budding) FEW Microscopic Urinalysis Comment CULTURE INDICATED Urine Collection Time 12:24 Date/Time Source Procedure Growth Status 07/21/17 12:30 Blood Peripheral Aerobic Blood Culture Pending Received 07/21/17 12:30 Blood Peripheral Anaerobic Blood Culture Pending Received 07/21/17 11:50 Nasal Aspirate Influenza Types A,B Antigen (JAVID) - Final NEGATIVE FOR FLU A AND B ANTIGEN.... Complete 07/21/17 12:24 Urine Clean Catch Urine Culture Pending Received Result Diagram: 07/21/17 1151 07/21/17 1151 Personally reviewed images: Yes Imaging Last Impressions Chest X-Ray 07/21/17 0000 Signed Impressions: Service Date/Time: Friday, July 21, 2017 11:56 - CONCLUSION: 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 No acute cardiopulmonary process. Edward Sims MD Abdomen/Pelvis CT 07/21/17 0000 Signed Impressions: Service Date/Time: Friday, July 21, 2017 13:28 - CONCLUSION: 8 x 5 mm calculus left ureter level of L4 with secondary obstructive uropathy. Gallstones. Uncomplicated diverticuli of the colon. Degenerative changes of the lumbar spine. Edward Sims MD Assessment and Plan Problem List: (1) Ureteral stone with hydronephrosis ICD Code: N13.2 - Hydronephrosis with renal and ureteral calculous obstruction Status: Acute (2) Acute renal failure ICD Code: N17.9 - Acute kidney failure, unspecified (3) Obstructive uropathy ICD Code: N13.9 - Obstructive and reflux uropathy, unspecified (4) Renal failure ICD Code: N19 - Unspecified kidney failure Status: Acute (5) Sepsis ICD Code: A41.9 - Sepsis, unspecified organism Status: Acute Assessment and Plan -CT scan reviewed with obstructing left proximal ureteral stone noted -Given patient's overall clinical picture and sepsis, emergent intervention indicated as she is at high risk -As she was found to have elevated troponins with concern for possible ND, minimal anesthesia would be best. This was discussed with Interventional Radiology for left nephrostomy tube placement. However, IR felt that full anesthesia with placement of an indwelling left ureteral stent was safer. -Therefore the patient was consented and taken to the OR emergently for cystoscopy with left ureteral stent placement -The patient understands the risks and the need for care in the intensive care unit after the procedure given her overall clinical picture Problem Qualifiers (1) Leukocytosis: Qualified Codes: D72.829 - Elevated white blood cell count, unspecified (2) Renal failure: Qualified Codes: N19 - Unspecified kidney failure (3) Sepsis: Qualified Codes: A41.9 - Sepsis, unspecified organism Prince Sullivan MD Jul 21, 2017 17:13
[2017-07-21] MEDS ORDERED: DO NOT ADM ANY ANTICOAGULANT DRUGS PRN (17:50)
--- NOTE | 2017-07-21 17:50 | HHI.PR ---
Subjective Patient symptoms today Successful left ureteral stent placement. -Kulkarni catheter inserted after procedure for maximal drainage. May be removed tomorrow morning -Stent to remain in place until medically stable. -Patient to follow-up after discharge for treatment of her stone and removal of stent -Will follow Objective Vital Signs Vital Signs Date Time Temp Pulse Resp B/P (MAP) Pulse Ox O2 Delivery O2 Flow Rate FiO2 07/21/17 17:00 97.7 81 20 84/50 (61) 07/21/17 16:27 97.7 74 20 88/51 (63) 97 07/21/17 15:53 07/21/17 15:48 74 18 94/51 (65) 97 Room Air 07/21/17 14:48 75 18 86/50 (62) 98 Room Air 07/21/17 14:23 73 18 78/50 (59) 98 Room Air 07/21/17 14:20 98 Room Air 07/21/17 13:08 68 16 82/49 (60) 98 Room Air 07/21/17 12:35 80 18 79/50 (60) 97 Room Air 07/21/17 12:11 75 18 75/45 (55) 98 Room Air 07/21/17 12:05 73 18 71/47 (55) 98 Room Air 07/21/17 11:59 71 99 Room Air 07/21/17 11:58 79 18 87/47 (60) 99 Room Air 07/21/17 11:56 99 Room Air 07/21/17 11:24 98.5 81 18 74/49 (57) 99 Intake & Output 07/21/17 07/21/17 07:00 19:00 Intake Total 2150 ml Balance 2150 ml Intake IV Total 1350 ml Other 800 ml Result Diagram: 07/21/17 1151 07/21/17 1151 Imaging Last 24 hours Impressions Chest X-Ray 07/21/17 0000 Signed Impressions: Service Date/Time: Friday, July 21, 2017 11:56 - CONCLUSION: 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 No acute cardiopulmonary process. Edward Sims MD Abdomen/Pelvis CT 07/21/17 0000 Signed Impressions: Service Date/Time: Friday, July 21, 2017 13:28 - CONCLUSION: 8 x 5 mm calculus left ureter level of L4 with secondary obstructive uropathy. Gallstones. Uncomplicated diverticuli of the colon. Degenerative changes of the lumbar spine. Edward Sims MD Medications and IVs Current Medications Medications (Trade) Dose Ordered Sig/Bill Route Start Time Stop Time Status Last Admin (NS Flush) 2 ml UNSCH PRN IV FLUSH 07/21/17 15:45 (NS Flush) 2 ml BID IV FLUSH 07/21/17 21:00 (Zofran Inj) 4 mg Q6H PRN IV PUSH 07/21/17 15:45 (Restoril) 15 mg HS PRN PO 07/21/17 15:45 Miscellaneous Information 1 [id number] XX 07/21/17 15:45 (Chlorhexidine 2% Cloth) 3 pack Taper DAILY@04 TOP 07/22/17 04:00 07/18/18 03:59 (Chlorhexidine 2% Cloth) 3 pack UNSCH PRN TOP 07/21/17 15:45 (Summer-Colace) 1 tab BID PO 07/21/17 21:00 (Milk Of Magnesia Liq) 30 ml Q12H PRN PO 07/21/17 15:45 (Senokot) 17.2 mg Q12H PRN PO 07/21/17 15:45 (Dulcolax Supp) 10 mg DAILY PRN RECTAL 07/21/17 15:45 (Lactulose Liq) 30 ml DAILY PRN PO 07/21/17 15:45 Piperacillin Sod/ Tazobactam Sod 50 ml @ 100 mls/hr Q12H IV 07/22/17 01:00 Pharmacy Profile Note 0 ml @ 0 mls/hr UNSCH OTHER 07/21/17 15:45 Dextrose/Sodium Chloride 1,000 ml @ 84 mls/hr [id number] IV 07/21/17 15:45 (Pepcid) 20 mg HS PO 07/21/17 21:00 Assessment and Plan Problem List: (1) Ureteral stone with hydronephrosis ICD Code: N13.2 - Hydronephrosis with renal and ureteral calculous obstruction Status: Acute (2) Acute renal failure ICD Code: N17.9 - Acute kidney failure, unspecified (3) Obstructive uropathy ICD Code: N13.9 - Obstructive and reflux uropathy, unspecified (4) Renal failure ICD Code: N19 - Unspecified kidney failure Status: Acute (5) Sepsis ICD Code: A41.9 - Sepsis, unspecified organism Status: Acute Problem Qualifiers (1) Renal failure: Qualified Codes: N19 - Unspecified kidney failure (2) Sepsis: Qualified Codes: A41.9 - Sepsis, unspecified organism Prince Sullivan MD Jul 21, 2017 17:50
[2017-07-21] MEDS ORDERED: PHENYLEPHRINE INJ 40 MG in DEXTROSE 5% IN WATE 500 ML INJ 496 ML IV PRN ×2 (18:15)
[2017-07-21] MEDS ORDERED: TERBUTALINE INJ 1 MG/ML AMP SQ PRN (18:15)
[2017-07-21] MEDS ORDERED: LACTATED RINGER'S 1000 ML INJ 1,000 ML IV ONE (18:15)
[2017-07-21 19:48] LABS: TROPONIN I 1.36 NG/ML (0.02-0.05)
[2017-07-21] MEDS: DEXT 5%-NACL 0.9% 1000 ML INJ 1,000 ML IV SCH (20:15)
[2017-07-21] MEDS ORDERED: FAMOTIDINE 20 MG/2 ML VIAL IV PUSH SCH (21:00)
[2017-07-21] MEDS: FAMOTIDINE 20 MG TAB PO SCH (21:24)
[2017-07-21] MEDS: DOCUSATE SODIUM 50 MG/SENNA 8.6 MG TAB PO SCH (21:24)
[2017-07-21] MEDS: SODIUM CHLORIDE 0.9% FLUSH 10 ML FLUSH IV FLUSH SCH (21:25)
[2017-07-21 22:05] LABS: BICARBONATE 25.5 MEQ/L (21.0-32.0); CALCIUM 7.8 MG/DL (8.5-10.1); CREATININE 2.62 MG/DL (0.50-1.00)
[2017-07-21 22:09] LABS: LACTIC ACID SEPSIS PROTOCOL 2.2 mmol/L (0.4-2.0)
--- NOTE | 2017-07-21 22:13 | RADRPT ---
EXAM DATE/TIME: 07/21/2017 20:50 [facility] COMPARISON: CT ABDOMEN & PELVIS W/O CONTRAST, July 21, 2017, 13:28. INDICATIONS : Elevated liver enzymes. MEDICAL HISTORY : Congestive heart failure. Anticoagulant therapy. Abdominal pain. SURGICAL HISTORY : Tonsillectomy. Vein stripping. ENCOUNTER: Initial ACUITY: 1 day PAIN SCORE: 4/10 LOCATION: Right upper quadrant MEASUREMENTS: LIVER: 14.5 cm length COMMON DUCT: 5 mm RIGHT KIDNEY: 10.2 x 3.8 x 3.9 cm FINDINGS: LIVER: Normal echotexture without focal lesion or ductal dilatation. COMMON DUCT: No intraluminal mass or stone visualized. GALLBLADDER: A large calcified gallstone fills the lumen of the gallbladder. No gallbladder wall thickening or per icholecystic fluid. PANCREAS: The visualized portions are within normal limits. RIGHT KIDNEY: No evidence of hydronephrosis, stone, or mass. CONCLUSION: 1. Cholelithiasis without sonographic evidence to suggest acute cholecystitis. Luis Fernando Torres Jr., MD on July 21, 2017 at 22:08 Board Certified Radiologist. This report was verified electronically.
[2017-07-22] VITALS (19 sets, daily range): BP systolic 97–155; BP diastolic 52–85; PULSE 66–96; RESP 12–44; TEMP 98–102.2; O2SAT 88–100
[2017-07-22 01:19] LABS: TROPONIN I 0.91 NG/ML (0.02-0.05)
[2017-07-22] MEDS: PIPERACIL-TAZO 3.375 GM PREMIX 50 ML IV SCH ×2 (01:21→13:52)
[2017-07-22] MEDS: CHLORHEXIDINE GLUCONATE 2 % 1 PACK (2 CLOTHS) TOP SCH (04:00)
[2017-07-22] MEDS: DEXT 5%-NACL 0.9% 1000 ML INJ 1,000 ML IV SCH ×2 (05:43→15:35)
[2017-07-22 06:18] LABS: AUTOMATED NEUTROPHIL # 18.2 TH/MM3 (1.8-7.7); BASOPHIL % 0.1 % (0.0-2.0); EOSINOPHIL # 0.2 TH/MM3 (0-0.4); EOSINOPHIL % 1.2 % (0.0-4.0); HEMATOCRIT 32.9 % (35.0-46.0); HEMOGLOBIN 10.9 GM/DL (11.6-15.3); LYMPH % 2.1 % (9.0-44.0); LYMPHOCYTE # 0.4 TH/MM3 (1.0-4.8); MEAN CELL VOLUME 103.4 FL (80.0-100.0); MEAN CORPUSCULAR HEMOGLOBIN 34.2 PG (27.0-34.0); MEAN PLATELET VOLUME 9.5 FL (7.0-11.0); MONO % 3.1 % (0.0-8.0); MONOCYTE # 0.6 TH/MM3 (0-0.9); NEUT % 93.5 % (16.0-70.0); PLATELET COUNT 51 TH/MM3 (150-450); RED BLOOD COUNT 3.18 MIL/MM3 (4.00-5.30); WHITE BLOOD COUNT 19.5 TH/MM3 (4.0-11.0)
[2017-07-22 06:53] LABS: ALBUMIN 2.4 GM/DL (3.4-5.0); BICARBONATE 24.6 MEQ/L (21.0-32.0); CALCIUM 7.4 MG/DL (8.5-10.1); CALCIUM-PROTEIN CORRECTED 8.6 MG/DL (8.5-10.1); CREATININE 2.26 MG/DL (0.50-1.00); TOTAL BILIRUBIN ADULT 1.2 MG/DL (0.2-1.0)
[2017-07-22 07:36] LABS: BANDS 23 % (0-6); DOHLE BODIES PRESENT (NONE SEEN); LYMPHOCYTES 3 % (9-44); METAMYELOCYTES 13 % (0-1); MONOCYTES 1 % (0-8); NEUTROPHIL # MANUAL DIFF 18.7 TH/MM3 (1.8-7.7); POLYS (SEG NEUTROPHILS) 60 % (16-70)
[2017-07-22 07:37] LABS: OVALOCYTES 1+ (NORMAL)
[2017-07-22 07:38] LABS: TOXIC VACUOLATION PRESENT (NONE SEEN)
[2017-07-22] MEDS ORDERED: DEXTROSE 50% IN WATER 50 ML VIAL(D50) IV PUSH PRN (08:30)
[2017-07-22] MEDS ORDERED: GLUCAGON 1 MG/ML VIAL OTHER PRN (08:30)
--- NOTE | 2017-07-22 08:40 | HHI.CCPN ---
Subjective Remarks/Hospital Course This is a 82-year-old female with known history of rheumatoid arthritis, congestive heart failure, hypotension who presented to hospital because of fever and chills. Patient states that she is in normal state of health when she flew down here from [place] yesterday. While she was on a plane she developed fever and rigors. Patient states when she was walking yesterday she was very cold because of the eardrops at the airport. He stated a hotel last night and she did not improve and she continued to have chills and rigors. Because of that reason she came to the ER for evaluation. Patient had workup done emergency department found to have multiple abnormal findings with significant hypotension, however patient states that she has low blood pressure on a regular basis and this was diagnosed in April in [place]. Patient did have acute renal failure and after CT scan was performed to indicated patient had obstructed uropathy of the left ureter with multiple organ failure to include hypotension, liver enzyme elevation, renal failure. Patient was given minimal IV bolus in the emergency department, will give further IV fluid for blood pressure management. However patient does have history of hypotension which this could be her normal blood pressure. Patient was found to have elevated troponin with left bundle branch block on EKG. Cardiology was consulted for recommendations. Patient recommended ICU admission for critical care management. Patient be transferred to [facility] for continued care. 07/[address] abdomen/pelvis yesterday which showed obstructive uropathy 2nd left ureter stone s/p left ureteral stent placement last night. She is on Neosyn 40 mics. T:100.7 Objective Vital Signs Date Time Temp Pulse Resp B/P (MAP) Pulse Ox O2 Delivery O2 Flow Rate FiO2 07/22/17 08:03 98 Nasal Cannula 2.00 07/22/17 07:00 73 30 124/60 (81) 07/22/17 04:00 100.7 Intake and Output 07/22/17 07/22/17 07/23/17 08:00 16:00 00:00 Intake Total 1050 ml Output Total 600 ml Balance 450 ml Result Diagram: 07/22/17 0538 07/22/17 0538 Other Results Laboratory Tests Test 07/21/17 11:51 07/21/17 12:24 07/21/17 18:25 07/21/17 19:30 White Blood Count 21.1 TH/MM3 Red Blood Count 3.65 MIL/MM3 Hemoglobin 12.4 GM/DL Hematocrit 37.4 % Mean Corpuscular Volume 102.3 FL Mean Corpuscular Hemoglobin 34.0 PG Mean Corpuscular Hemoglobin Concent 33.2 % Red Cell Distribution Width 13.3 % Platelet Count 76 TH/MM3 Mean Platelet Volume 10.1 FL CBC Comment AUTO DIFF Differential Total Cells Counted 100 Neutrophils % (Manual) 71 % Band Neutrophils % 22 % Lymphocytes % 2 % Monocytes % 2 % Neutrophils # (Manual) 20.3 TH/MM3 Metamyelocytes 3 % Differential Comment FINAL DIFF MANUAL Platelet Estimate LOW Platelet Morphology Comment NORMAL Prothrombin Time 15.4 SEC Prothromb Time International Ratio 1.5 RATIO Activated Partial Thromboplast Time 31.9 SEC Blood Urea Nitrogen 45 MG/DL Creatinine 3.10 MG/DL Random Glucose 85 MG/DL Total Protein 6.6 GM/DL Albumin 3.4 GM/DL Calcium Level 8.9 MG/DL Phosphorus Level 4.1 MG/DL Magnesium Level 1.8 MG/DL Alkaline Phosphatase 131 U/L Aspartate Amino Transf (AST/SGOT) 182 U/L Alanine Aminotransferase (ALT/SGPT) 126 U/L Total Bilirubin 2.2 MG/DL Sodium Level 134 MEQ/L Potassium Level 4.9 MEQ/L Chloride Level 99 MEQ/L Carbon Dioxide Level 23.1 MEQ/L Anion Gap 12 MEQ/L Estimat Glomerular Filtration Rate 14 ML/MIN Lactic Acid Level 3.8 mmol/L Total Creatine Kinase 277 U/L 310 U/L Creatine Kinase MB 5.6 NG/ML 8.4 NG/ML Creatine Kinase MB % 2.0 % 2.7 % Troponin I 1.56 NG/ML 1.36 NG/ML Urine Collection Type CLEAN CATCH Urine Color YELLOW Urine Turbidity MOD Urine pH 5.0 Urine Specific [place] 1.025 Urine Protein 30 mg/dL Urine Glucose (UA) NEG mg/dL Urine Ketones TRACE mg/dL Urine Occult Blood LARGE Urine Nitrite NEG Urine Bilirubin NEG Urine Leukocyte Esterase MOD Urine RBC 100-200 /hpf Urine WBC 25-49 /hpf Urine WBC Clumps MOD Urine Squamous Epithelial Cells 0-5 /hpf Urine Renal Epithelial Cells > 8 /hpf Urine Bacteria MANY /hpf Urine Yeast (Budding) FEW Microscopic Urinalysis Comment CULTURE INDICATED Urine Collection Time 12:24 Nasal Screen MRSA (PCR) MRSA NOT DETECTED Test 07/21/17 21:21 07/22/17 00:36 1/20/18 05:38 Blood Urea Nitrogen 47 MG/DL 43 MG/DL Creatinine 2.62 MG/DL 2.26 MG/DL Random Glucose 102 MG/DL 109 MG/DL Calcium Level 7.8 MG/DL 7.4 MG/DL Sodium Level 138 MEQ/L 139 MEQ/L Potassium Level 4.6 MEQ/L 4.2 MEQ/L Chloride Level 103 MEQ/L 106 MEQ/L Carbon Dioxide Level 25.5 MEQ/L 24.6 MEQ/L Anion Gap 10 MEQ/L 8 MEQ/L Estimat Glomerular Filtration Rate 17 ML/MIN 21 ML/MIN Lactic Acid Level 2.2 mmol/L 1.9 mmol/L Total Creatine Kinase 187 U/L Creatine Kinase MB 8.6 NG/ML Troponin I 0.91 NG/ML White Blood Count 19.5 TH/MM3 Red Blood Count 3.18 MIL/MM3 Hemoglobin 10.9 GM/DL Hematocrit 32.9 % Mean Corpuscular Volume 103.4 FL Mean Corpuscular Hemoglobin 34.2 PG Mean Corpuscular Hemoglobin Concent 33.0 % Red Cell Distribution Width 14.0 % Platelet Count 51 TH/MM3 Mean Platelet Volume 9.5 FL Neutrophils (%) (Auto) 93.5 % Lymphocytes (%) (Auto) 2.1 % Monocytes (%) (Auto) 3.1 % Eosinophils (%) (Auto) 1.2 % Basophils (%) (Auto) 0.1 % Neutrophils # (Auto) 18.2 TH/MM3 Lymphocytes # (Auto) 0.4 TH/MM3 Monocytes # (Auto) 0.6 TH/MM3 Eosinophils # (Auto) 0.2 TH/MM3 Basophils # (Auto) 0.0 TH/MM3 CBC Comment AUTO DIFF Differential Total Cells Counted 100 Neutrophils % (Manual) 60 % Band Neutrophils % 23 % Lymphocytes % 3 % Monocytes % 1 % Neutrophils # (Manual) 18.7 TH/MM3 Metamyelocytes 13 % Differential Comment FINAL DIFF MANUAL Toxic Vacuolation PRESENT Dohle Bodies PRESENT Platelet Estimate LOW Platelet Morphology Comment NORMAL Ovalocytes 1+ Total Protein 5.0 GM/DL Albumin 2.4 GM/DL Alkaline Phosphatase 95 U/L Aspartate Amino Transf (AST/SGOT) 83 U/L Alanine Aminotransferase (ALT/SGPT) 64 U/L Total Bilirubin 1.2 MG/DL Protein Corrected Calcium 8.6 MG/DL Imaging Last Impressions Gall Bladder Ultrasound 1/19/18 1812 Signed Impressions: Service Date/Time: Friday, July 21, 2017 20:50 - CONCLUSION: 1. Cholelithiasis without sonographic evidence to suggest acute cholecystitis. Luis Fernando Torres Jr., MD Chest X-Ray 07/21/17 0000 Signed Impressions: Service Date/Time: Friday, July 21, 2017 11:56 - CONCLUSION: 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 No acute cardiopulmonary process. Edawrd Sims MD Abdomen/Pelvis CT 07/21/17 0000 Signed Impressions: Service Date/Time: Friday, July 21, 2017 13:28 - CONCLUSION: 8 x 5 mm calculus left ureter level of L4 with secondary obstructive uropathy. Gallstones. Uncomplicated diverticuli of the colon. Degenerative changes of the lumbar spine. Edward Sims MD Objective Remarks GENERAL: Patient is lying in bed in NAD SKIN: Warm and dry. HEAD: Normocephalic. EYES: No scleral icterus. No injection or drainage. NECK: Supple, trachea midline. No JVD or lymphadenopathy. CARDIOVASCULAR: Regular rate and rhythm without murmurs, gallops, or rubs. RESPIRATORY: Breath sounds equal bilaterally. No accessory muscle use. GASTROINTESTINAL: Abdomen soft, non-tender, nondistended. MUSCULOSKELETAL: No cyanosis, or edema. Neuro: Awake and alert A/P Problem List: (1) Septic shock ICD Code: A41.9 - Sepsis, unspecified organism; R65.21 - Severe sepsis with septic shock (2) Non-ST elevated myocardial infarction ICD Code: I21.4 - Non-ST elevation (NSTEMI) myocardial infarction (3) Obstructive uropathy ICD Code: N13.9 - Obstructive and reflux uropathy, unspecified (4) Acute renal failure ICD Code: N17.9 - Acute kidney failure, unspecified (5) Elevated liver enzymes ICD Code: R74.8 - Abnormal levels of other serum enzymes (6) Leukocytosis ICD Code: D72.829 - Elevated white blood cell count, unspecified Status: Acute (7) Lactic acidosis ICD Code: E87.2 - Acidosis Status: Acute Assessment and Plan NEUROLOGY Monitor neuro status, awake and alert PULMONOLOGY Continue with oxygen maintain O2 sats greater than 92% Incentive spirometry CARDIOLOGY Septic shock History of low blood pressure History of congestive heart failure Non-ST elevated myocardial infarctions Left bundle branch block Wean off Neosyn monitor HR and BP keep MAP>65mmHg Lactic acid cleared-1.9 Monitor trop, for 2D echo to eval LV function Unable to use beta ayaz at this time as patient is on Neosyn Cards consulted GASTROENTEROLOGY Elevated liver enzymes Monitor LFTs's (trending down) US liver: Cholelithiasis without sonographic evidence to suggest acute cholecystitis On PO diet GENITOURINARY Obstructive uropathy with renal stone in left ureter Acute renal failure s/p Left ureter stent placement 07/21 Monitor renal function, I/O's, avoid nephrotoxins Renal function improving with Cr: 2.26 from 3.10 on arrival Continue with IVF D5NS@84ml/hr INFECTIOUS DISEASE Septic shock Gram negative bacteremia Leukocytosis with bandemia Lactic acidosis. Urinary tract infection Continue with Zosyn, d/c Nicholas, ID consulted. Monitor for signs of infections ( Fever, WBC) Check BC x 2sets today, BC from 07/21: GNR Follow up on urine cx ENDOCRINOLOGY SSI to maintain Euglycemia HEMATOLOGY Monitor CBC PROPHYLAXIS DVT prevention with SCD GI protection: Pepcid LINES Peripheral IVs Level 3 Problem Qualifiers (1) Leukocytosis: Qualified Codes: D72.829 - Elevated white blood cell count, unspecified Chas Beckwith MD Jul 22, 2017 08:40
[2017-07-22] MEDS: INSULIN NovoLIN REGULAR SUPPLEMENTAL SCALE SQ SCH ×4 (09:00→20:18)
[2017-07-22] MEDS: SODIUM CHLORIDE 0.9% FLUSH 10 ML FLUSH IV FLUSH SCH ×2 (09:00→20:18)
[2017-07-22] MEDS: DOCUSATE SODIUM 50 MG/SENNA 8.6 MG TAB PO SCH ×2 (09:00→20:17)
--- NOTE | 2017-07-22 10:56 | MB ---
cc: CHU GARCIA M.D. DATE OF CONSULTATION: 07/22/2017 REASON FOR CONSULTATION: Abnormal troponin levels. HISTORY OF PRESENT ILLNESS: The patient is a very poor and very difficult historian. She is an 82-year-old white female with a history of rheumatoid arthritis, hypertension, possibly congestive heart failure April of 2017 who presented to the hospital with generalized malaise, lightheadedness. She was found to be in acute renal insufficiency due to severe obstructive uropathy and yesterday underwent placement of a left ureteral stent. Cardiac enzymes were checked and found to be abnormal. She denies any recent chest pains, syncope, near-syncope, palpitations, pedal edema, paroxysmal nocturnal dyspnea. The past few months she has felt somewhat increasing dyspnea on exertion. The patient states up in [place] in April of last year she underwent cardiac workup including a stress test. She cannot recall the results of the stress test but denies ever undergoing cardiac catheterization. At the time in April she was having problems with pedal edema which has since resolved. PAST MEDICAL HISTORY: As above. No other details currently available. PAST SURGICAL HISTORY: 1. Tonsillectomy 2. Vein stripping. CARDIAC MEDICATIONS AT HOME: 1.Potassium chloride 20 milliequivalents daily. 2. Furosemide 40 milligrams alternating with 20 milligrams every other day. 3. Lisinopril 1.25 milligrams daily. 4. Aspirin 81 milligrams daily. ALLERGIES: CIPRO. FAMILY HISTORY: Noncontributory. There is no significant family history of early myocardial infarction. SOCIAL HISTORY: The patient denies any history of alcohol or tobacco abuse. REVIEW OF SYSTEMS: Review of systems as in the history of present illness otherwise negative or noncontributory. She also denies headache, abdominal pain, melena, dyspepsia, bright red blood per rectum, cough, wheezing, fevers. PHYSICAL EXAMINATION: VITAL SIGNS: On physical examination her blood pressure 124/60 with a pulse of 70, respirations 20. GENERAL: In general she is a well-developed, well-nourished white female in no acute distress. HEAD, EYES, EARS, NOSE, THROAT: On HEENT examination, jugular venous pressure is normal. Carotid pulses are 2+ bilaterally and without bruits. CHEST: Examination of the chest reveals unlabored respiratory effort with clear lung bonilla. CARDIAC: On cardiac examination she has a regular rhythm and rate without S3 or S4. There is a grade 1/6 systolic murmur heard at the apex. ABDOMEN: On abdominal examination she has a soft, nontender abdomen. Bowel sounds are present. There is no definite hepatosplenomegaly. EXTREMITIES: Examination of extremities reveals no clubbing, cyanosis or edema. EKGS: EKG shows probable sinus rhythm with premature atrial complexes, left bundle-branch block. LABORATORY DATA: Laboratory data includes WBC 19.5, hemoglobin 10.9, platelets 51, troponin 1.56, CK 310 with 2.7% MB fraction. BUN 45. Creatinine 3.10 (on admission). IMAGING STUDIES: Chest x-ray shows no acute disease. IMPRESSION: Elevated troponin levels in this 82-year-old white female with a history of hypertension, rheumatoid arthritis, questionable history of congestive heart failure. Overall I doubt the elevation in troponin is due to acute coronary syndrome or myocardial infarction. It is difficult to interpret the troponin levels in the setting of her acute renal insufficiency. She has had no angina symptoms. CK-MB percentages are negative for myocardial infarction. The troponin levels are trending downward. The patient also states she had cardiac workup in April or 2016 including a stress test, which she believes was negative. Monitoring strips are somewhat difficult to interpret with baseline artifact. There is some suggestion of atrial fibrillation, although the P-wave amplitudes are quite small. RECOMMENDATIONS: 1. I would check a 2-D echo to assess her left ventricular function, otherwise no additional cardiac workup. 2. Will repeat her EKG this morning and continue cardiac monitoring. MD HALI Santos/RUSSELL /8:35 AM /10:40 AM ARABELLA
--- NOTE | 2017-07-22 15:19 | ECHRPT ---
Indication: NSTEMI CONCLUSIONS The left ventricular systolic function is normal with an estimated ejection fraction in the range of 55-60%. Wall thickness is normal. Normal left ventricular size. No regional wall motion abnormalities are present. The left ventricular systolic function is normal with an estimated ejection fraction in the range of 55-60%. Mild mitral valve regurgitation. Mild aortic valve regurgitation. No aortic valve stenosis. Aortic valve area is 1.4 cm. Aortic valve mean gradient is 13 mmHg. There is moderate tricuspid regurgitation. There is estimated severe pulmonary hypertension present ( > 70 mmHg). BP: / HR: Rhythm: Sinus MEASUREMENTS (Male / Female) Normal Values Technical Quality:Good 2D ECHO LV Diastolic Diameter PLAX 4.9 cm 4.2 - 5.9 / 3.9 - 5.3 cm LV Systolic Diameter PLAX 3.6 cm IVS Diastolic Thickness 1.0 cm 0.6 - 1.0 / 0.6 - 0.9 cm LVPW Diastolic Thickness 1.0 cm 0.6 - 1.0 / 0.6 - 0.9 cm LV Relative Wall Thickness 0.4 RV Internal Dim ED PLAX 3.0 cm LVOT Diameter 1.6 cm LA Systolic Diameter LX 3.6 cm 3.0 - 4.0 / 2.7 - 3.8 cm LV Ejection Fraction MOD 4C 58.7 % LV Ejection Fraction 4C AL 59.7 % M-MODE Aortic Root Diameter MM 3.0 cm LA Systolic Diameter MM 4.3 cm LA Ao Ratio MM 1.4 AV Cusp Separation MM 1.6 cm DOPPLER AV Peak Velocity 280.5 cm/s AV Peak Gradient 31.5 mmHg AV Mean Gradient 13.0 mmHg AV Velocity Time Integral 33.9 cm AI Peak Velocity 251.0 cm/s AI Peak Gradient 25.2 mmHg AI Pressure Half Time 455.0 ms LVOT Peak Velocity 172.0 cm/s LVOT Peak Gradient 11.8 mmHg LVOT Velocity Time Integral 24.1 cm AV Area Cont Eq vti 1.4 cm AV Area Cont Eq pk 1.2 cm MV Area PHT 4.3 cm Mitral E Point Velocity 88.8 cm/s Mitral A Point Velocity 71.6 cm/s Mitral E to A Ratio 1.2 LV E' Lateral Velocity 6.4 cm/s Mitral E to LV E' Lateral Ratio 13.8 LV E' Septal Velocity 5.1 cm/s Mitral E to LV E' Septal Ratio 17.5 TR Peak Velocity 439.0 cm/s TR Peak Gradient 77.1 mmHg Right Atrial Pressure 10.0 mmHg Pulmonary Artery Systolic Pressu 87.1 mmHg Right Ventricular Systolic Press 87.1 mmHg PV Peak Velocity 127.0 cm/s PV Peak Gradient 6.5 mmHg FINDINGS LEFT VENTRICLE The left ventricular systolic function is normal with an estimated ejection fraction in the range of 55-60%. Wall thickness is normal. Normal left ventricular size. No regional wall motion abnormalities are present. Doppler parameters are consistent with impaired left ventricular relaxtion (grade 1 diastolic dysfun ction). RIGHT VENTRICLE The right ventricle is mildly dilated. LEFT ATRIUM The left atrial size is normal. RIGHT ATRIUM The right atrial size is normal. ATRIAL SEPTUM Normal atrial septal thickness without atrial level shunting by limited color doppler interrogation. AORTA The aortic root and proximal ascending aorta are normal in size on limited imaging. MITRAL VALVE Structurally normal mitral valve. Mild mitral valve regurgitation. AORTIC VALVE Trileaflet aortic valve. Mild aortic valve regurgitation. No aortic valve stenosis. Aortic valve area is 1.4 cm. Aortic valve mean gradient is 13 mmHg. TRICUSPID VALVE Structurally normal tricuspid valve. There is moderate tricuspid regurgitation. There is estimated severe pulmonary hypertension present ( > 70 mmHg). PULMONARY VALVE No pulmonary valve regurgitation or stenosis. VESSELS The inferior vena cava is normal in size. PERICARDIUM No pericardial effusion. Davonte Pacheco MD (Electronically Signed) Final Date:22 July 2017 15:18
--- NOTE | 2017-07-22 16:49 | HHI.PR ---
Subjective Patient symptoms today Doing well, no pain, no fevers. Kulkarni removed, voided well Objective Vital Signs Vital Signs Date Time Temp Pulse Resp B/P (MAP) Pulse Ox O2 Delivery O2 Flow Rate FiO2 07/22/17 14:00 92 07/22/17 12:00 92 07/22/17 12:00 98.3 86 36 99/57 (71) 94 07/22/17 10:00 92 07/22/17 08:03 98 Nasal Cannula 2.00 07/22/17 08:00 98.0 96 32 155/85 (108) 92 07/22/17 08:00 92 07/22/17 07:00 73 30 124/60 (81) 91 07/22/17 06:00 86 44 117/66 (83) 88 07/22/17 06:00 86 07/22/17 05:00 70 25 114/55 (74) 98 07/22/17 04:00 100.7 73 25 114/57 (76) 99 07/22/17 04:00 73 07/22/17 03:00 72 24 101/56 (71) 100 07/22/17 02:00 66 12 97/52 (67) 100 07/22/17 02:00 66 07/22/17 01:00 67 30 99/56 (70) 99 07/22/17 00:00 98.6 68 27 108/58 (75) 99 07/22/17 00:00 68 07/21/17 23:00 63 25 100 07/21/17 22:00 67 07/21/17 22:00 67 37 115/53 (73) 100 07/21/17 21:00 63 35 109/54 (72) 100 07/21/17 20:00 62 07/21/17 20:00 62 21 125/65 (85) 100 07/21/17 19:45 63 127/75 07/21/17 19:30 98.0 101/57 (72) 07/21/17 18:50 62 20 102/52 (69) 95 Nasal Cannula 2 07/21/17 18:44 64 83/49 07/21/17 18:30 20 80/52 (61) 95 Nasal Cannula 2 07/21/17 18:15 20 82/50 (61) 95 Nasal Cannula 2 07/21/17 18:00 20 87/52 (64) 95 Nasal Cannula 2 07/21/17 17:49 97.7 73 20 92/53 (66) 95 Nasal Cannula 2 07/21/17 17:00 97.7 81 20 84/50 (61) Intake & Output 07/22/17 07/22/17 07:00 19:00 Intake Total 2050 ml Output Total 1110 ml 230 ml Balance 940 ml -230 ml Intake IV Total 2050 ml Output Urine Total 1110 ml 230 ml # Bowel Movements 0 Result Diagram: 07/22/17 0538 07/22/17 0538 Imaging Last 24 hours Impressions Gall Bladder Ultrasound 07/21/171811 Signed Impressions: Service Date/Time: Friday, July 21, 2017 20:50 - CONCLUSION: 1. Cholelithiasis without sonographic evidence to suggest acute cholecystitis. Luis Fernando Torres Jr., MD Objective Remarks NAD, AAOx3 Resp NL Medications and IVs Current Medications Medications (Trade) Dose Ordered Sig/Bill Route Start Time Stop Time Status Last Admin (NS Flush) 2 ml UNSCH PRN IV FLUSH 07/21/17 15:45 (NS Flush) 2 ml BID IV FLUSH 07/21/17 21:00 07/21/17 21:25 (Zofran Inj) 4 mg Q6H PRN IV PUSH 07/21/17 15:45 (Restoril) 15 mg HS PRN PO 07/21/17 15:45 Miscellaneous Information 1 Q361D XX 07/21/17 15:45 (Chlorhexidine 2% Cloth) 3 pack Taper DAILY@04 TOP 07/22/17 04:00 07/18/18 03:59 07/22/17 04:00 (Chlorhexidine 2% Cloth) 3 pack UNSCH PRN TOP 07/21/17 15:45 (Summer-Colace) 1 tab BID PO 07/21/17 21:00 07/21/17 21:24 (Milk Of Magnesia Liq) 30 ml Q12H PRN PO 07/21/17 15:45 (Senokot) 17.2 mg Q12H PRN PO 07/21/17 15:45 (Dulcolax Supp) 10 mg DAILY PRN RECTAL 07/21/17 15:45 (Lactulose Liq) 30 ml DAILY PRN PO 07/21/17 15:45 Piperacillin Sod/ Tazobactam Sod 50 ml @ 100 mls/hr Q12H IV 07/22/17 01:00 07/22/17 13:52 Dextrose/Sodium Chloride 1,000 ml @ 84 mls/hr [id number] IV 07/21/17 15:45 07/22/17 05:43 (Pepcid) 20 mg HS PO 07/21/17 21:00 07/21/17 21:24 Phenylephrine HCl 40 mg/Dextrose 500 ml @ 30 mls/hr TITRATE PRN IV 07/21/17 18:15 07/21/17 18:44 (Brethine Inj) 1 mg UNSCH PRN SQ 07/21/17 18:15 Miscellaneous Information ALL NURSING DEPARTME... UNSCH PRN .XX 07/21/17 17:50 07/22/17 17:49 (D50w (Vial) Inj) 50 ml UNSCH PRN IV PUSH 07/22/17 08:30 (Glucagon Inj) 1 mg UNSCH PRN OTHER 07/22/17 08:30 (NovoLIN R SUPPLEMENTAL SCALE) 1 Q4H SQ 07/22/17 09:00 07/22/17 13:00 Assessment and Plan Problem List: (1) Ureteral stone with hydronephrosis ICD Code: N13.2 - Hydronephrosis with renal and ureteral calculous obstruction Status: Acute (2) Acute renal failure ICD Code: N17.9 - Acute kidney failure, unspecified (3) Obstructive uropathy ICD Code: N13.9 - Obstructive and reflux uropathy, unspecified (4) Renal failure ICD Code: N19 - Unspecified kidney failure Status: Acute (5) Sepsis ICD Code: A41.9 - Sepsis, unspecified organism Status: Acute Assessment and Plan -Discussed with patient the importance of follow-up to treat her left stone burden and remove the left ureteral stent. Patient understands that failing to do so may lead to kidney damage and further stone formation -Patient is planning on travelling back to [place] later this week. She may follow-up with Urology here in [facility] or if she is doing well, may return home and establish care with Urology there -Patient understands and agrees with above plan -No further Urological intervention indicated at this time -Please call with questions Problem Qualifiers (1) Renal failure: Qualified Codes: N19 - Unspecified kidney failure (2) Sepsis: Qualified Codes: A41.9 - Sepsis, unspecified organism Prince Sullivan MD Jul 22, 2017 16:49
--- NOTE | 2017-07-22 20:02 | PD.ID.CON ---
History of Present Illness Service ID Consult Requested By Dr Rosario Reason for Consult UTI, sepsis, GNB Primary Care Physician Unknown Diagnoses: History of Present Illness 82 y.o. female presented with feverm, rigors x 1 day On presentation with low grade fever, hypotensive, ARF , lactic acidosis and leukocytosis with WBC of 21 K Abnormal UA with pyuria, hematuria CT abd/pel showed 8 x 5 mm calculus left ureter level of L4 with secondary obstructive uropathy. Sp stent placement emergently by urologist Denies prior diagnosis of kidney stones She feels better now All 4 bottles of blood clx and urine clx grown GNR, ID shows E.coli . No resistance markers Past Family Social History Allergies: Coded Allergies: ciprofloxacin (Verified Allergy, Unknown, 07/21/17) Past Medical History Low blood pressure Congestive heart failure Rheumatoid arthritis Past Surgical History Tonsillectomy Carpal tunnel surgery Vein surgery of legs Active Ordered Medications Medications where reviewed in EMR Antibiotics Include: zosyn Family History Reviewed is significant for mother having breast cancer, father with heart disease Social History Patient denies any tobacco or illicit drugs. Does drink alcohol occasionally. Physical Exam Vital Signs Vital Signs Date Time Temp Pulse Resp B/P (MAP) Pulse Ox O2 Delivery O2 Flow Rate FiO2 07/22/17 18:00 92 07/22/17 16:00 98.0 78 33 108/53 (71) 99 07/22/17 16:00 92 07/22/17 14:00 92 07/22/17 12:00 92 07/22/17 12:00 98.3 86 36 99/57 (71) 94 07/22/17 10:00 92 07/22/17 08:03 98 Nasal Cannula 2.00 07/22/17 08:00 98.0 96 32 155/85 (108) 92 07/22/17 08:00 92 07/22/17 07:00 73 30 124/60 (81) 91 07/22/17 06:00 86 44 117/66 (83) 88 07/22/17 06:00 86 07/22/17 05:00 70 25 114/55 (74) 98 07/22/17 04:00 100.7 73 25 114/57 (76) 99 07/22/17 04:00 73 07/22/17 03:00 72 24 101/56 (71) 100 07/22/17 02:00 66 12 97/52 (67) 100 07/22/17 02:00 66 07/22/17 01:00 67 30 99/56 (70) 99 07/22/17 00:00 98.6 68 27 108/58 (75) 99 07/22/17 00:00 68 07/21/17 23:00 63 25 100 07/21/17 22:00 67 07/21/17 22:00 67 37 115/53 (73) 100 07/21/17 21:00 63 35 109/54 (72) 100 07/21/17 20:00 62 07/21/17 20:00 62 21 125/65 (85) 100 Physical Exam CONSTITUTIONAL/GENERAL: This is an adequately nourished patient, in no apparent distress. TUBES/LINES/DRAINS: SKIN: No jaundice, rashes, or lesions. Skin temperature appropriate. Not diaphoretic. HEAD: Atraumatic. Normocephalic. EYES: Pupils equal and round and reactive. Extraocular motions intact. No scleral icterus. No injection or drainage. Fundi not examined. ENT: Hearing grossly normal. Nose without bleeding or purulent drainage. Throat without visible erythema, exudates, masses, or lesions. NECK: Trachea midline. Supple, nontender. No palpable thyroid enlargement or nodularity. CARDIOVASCULAR: Regular rate and rhythm without murmurs, gallops, or rubs. No JVD. Peripheral pulses symmetric. RESPIRATORY/CHEST: Symmetric, unlabored respirations. Clear to auscultation. Breath sounds equal bilaterally. No wheezes, rales, or rhonchi. GASTROINTESTINAL: Abdomen soft, non-tender, nondistended. No hepato-splenomegaly , or palpable masses. No guarding. Bowel sounds present. GENITOURINARY: Without palpable bladder distension. Kulkarni catheter in place. MUSCULOSKELETAL: Extremities without clubbing, cyanosis, or edema. No joint tenderness or effusion noted. No calf tenderness. No mottling or clubbing. LYMPHATICS: No palpable cervical or supraclavicular adenopathy. NEUROLOGICAL: Awake and alert. Motor and sensory grossly within normal limits. Follows commands. Clear speech. Moves all extremities. PSYCHIATRIC: No obvious anxiety/depression. no apparent hallucinations or other psychotic thought process. Laboratory Laboratory Tests Test 07/21/17 21:21 07/22/17 00:36 07/22/17 05:38 Blood Urea Nitrogen 47 43 Creatinine 2.62 2.26 Random Glucose 102 109 Calcium Level 7.8 7.4 Sodium Level 138 139 Potassium Level 4.6 4.2 Chloride Level 103 106 Carbon Dioxide Level 25.5 24.6 Anion Gap 10 8 Estimat Glomerular Filtration Rate 17 21 Lactic Acid Level 2.2 1.9 Total Creatine Kinase 187 Creatine Kinase MB 8.6 Troponin I 0.91 White Blood Count 19.5 Red Blood Count 3.18 Hemoglobin 10.9 Hematocrit 32.9 Mean Corpuscular Volume 103.4 Mean Corpuscular Hemoglobin 34.2 Mean Corpuscular Hemoglobin Concent 33.0 Red Cell Distribution Width 14.0 Platelet Count 51 Mean Platelet Volume 9.5 Neutrophils (%) (Auto) 93.5 Lymphocytes (%) (Auto) 2.1 Monocytes (%) (Auto) 3.1 Eosinophils (%) (Auto) 1.2 Basophils (%) (Auto) 0.1 Neutrophils # (Auto) 18.2 Lymphocytes # (Auto) 0.4 Monocytes # (Auto) 0.6 Eosinophils # (Auto) 0.2 Basophils # (Auto) 0.0 CBC Comment AUTO DIFF Differential Total Cells Counted 100 Neutrophils % (Manual) 60 Band Neutrophils % 23 Lymphocytes % 3 Monocytes % 1 Neutrophils # (Manual) 18.7 Metamyelocytes 13 Differential Comment FINAL DIFF MANUAL Toxic Vacuolation PRESENT Dohle Bodies PRESENT Platelet Estimate LOW Platelet Morphology Comment NORMAL Ovalocytes 1+ Total Protein 5.0 Albumin 2.4 Alkaline Phosphatase 95 Aspartate Amino Transf (AST/SGOT) 83 Alanine Aminotransferase (ALT/SGPT) 64 Total Bilirubin 1.2 Protein Corrected Calcium 8.6 Date/Time Source Procedure Growth Status 07/22/17 11:19 Blood Peripheral Aerobic Blood Culture Pending Received 07/22/17 11:19 Blood Peripheral Anaerobic Blood Culture Pending Received 07/21/17 11:50 Nasal Aspirate Influenza Types A,B Antigen (JAVID) - Final NEGATIVE FOR FLU A AND B ANTIGEN.... Complete 07/21/17 12:24 Urine Clean Catch Urine Culture - Preliminary Gram Negative James Resulted Result Diagram: 07/22/17 0538 07/22/17 0538 Imaging Last Impressions Gall Bladder Ultrasound 07/21/171811 Signed Impressions: Service Date/Time: Friday, July 21, 2017 20:50 - CONCLUSION: 1. Cholelithiasis without sonographic evidence to suggest acute cholecystitis. Luis Fernando Torres Jr., MD Chest X-Ray 07/21/17 0000 Signed Impressions: Service Date/Time: Friday, July 21, 2017 11:56 - CONCLUSION: 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 No acute cardiopulmonary process. Edward Sims MD Abdomen/Pelvis CT 07/21/17 0000 Signed Impressions: Service Date/Time: Friday, July 21, 2017 13:28 - CONCLUSION: 8 x 5 mm calculus left ureter level of L4 with secondary obstructive uropathy. Gallstones. Uncomplicated diverticuli of the colon. Degenerative changes of the lumbar spine. Edward Sims MD Assessment and Plan Assessment and Plan Complicated bacteremic UTI 2/2 E.coli in the settings of obstructive uropathy 2 /2 kidney stone Sp L ureter stent placement ARF cont zosyn fu clx Sakshi Schmitz MD Jul 22, 2017 20:02
[2017-07-22] MEDS: ACETAMINOPHEN 325 MG TAB PO PRN (20:17)
[2017-07-22] MEDS: FAMOTIDINE 20 MG TAB PO SCH (20:17)
[2017-07-23] VITALS (11 sets, daily range): BP systolic 94–139; BP diastolic 52–65; PULSE 65–107; RESP 18–32; TEMP 98–100.2; O2SAT 88–100
[2017-07-23] MEDS: INSULIN NovoLIN REGULAR SUPPLEMENTAL SCALE SQ SCH ×5 (00:30→20:06)
[2017-07-23] MEDS: CHLORHEXIDINE GLUCONATE 2 % 1 PACK (2 CLOTHS) TOP SCH (00:30)
[2017-07-23] MEDS: PIPERACIL-TAZO 3.375 GM PREMIX 50 ML IV SCH ×2 (00:30→14:28)
[2017-07-23] MEDS: DEXT 5%-NACL 0.9% 1000 ML INJ 1,000 ML IV SCH ×2 (05:06→22:00)
[2017-07-23 06:22] LABS: AUTOMATED NEUTROPHIL # 17.5 TH/MM3 (1.8-7.7); BASOPHIL % 0.1 % (0.0-2.0); HEMATOCRIT 29.2 % (35.0-46.0); HEMOGLOBIN 9.7 GM/DL (11.6-15.3); LYMPH % 2.1 % (9.0-44.0); LYMPHOCYTE # 0.4 TH/MM3 (1.0-4.8); MEAN CELL VOLUME 103.7 FL (80.0-100.0); MEAN CORPUSCULAR HEMOGLOBIN 34.2 PG (27.0-34.0); MEAN PLATELET VOLUME 10.8 FL (7.0-11.0); MONO % 3.4 % (0.0-8.0); MONOCYTE # 0.6 TH/MM3 (0-0.9); NEUT % 94.4 % (16.0-70.0); PLATELET COUNT 38 TH/MM3 (150-450); RED BLOOD COUNT 2.82 MIL/MM3 (4.00-5.30); RED CELL DISTRIBUTION WIDTH 13.9 % (11.6-17.2); WHITE BLOOD COUNT 18.6 TH/MM3 (4.0-11.0)
[2017-07-23 06:36] LABS: BICARBONATE 20.8 MEQ/L (21.0-32.0); CALCIUM 7.4 MG/DL (8.5-10.1); CREATININE 1.54 MG/DL (0.50-1.00)
[2017-07-23 06:41] LABS: CALCIUM-PROTEIN CORRECTED 8.8 MG/DL (8.5-10.1); TOTAL BILIRUBIN ADULT 0.9 MG/DL (0.2-1.0); TOTAL PROTEIN 4.7 GM/DL (6.4-8.2)
--- NOTE | 2017-07-23 07:55 | HHI.CCPN ---
Subjective Remarks/Hospital Course This is a 82-year-old female with known history of rheumatoid arthritis, congestive heart failure, hypotension who presented to hospital because of fever and chills. Patient states that she is in normal state of health when she flew down here from [place] yesterday. While she was on a plane she developed fever and rigors. Patient states when she was walking yesterday she was very cold because of the eardrops at the airport. He stated a hotel last night and she did not improve and she continued to have chills and rigors. Because of that reason she came to the ER for evaluation. Patient had workup done emergency department found to have multiple abnormal findings with significant hypotension, however patient states that she has low blood pressure on a regular basis and this was diagnosed in April in [place]. Patient did have acute renal failure and after CT scan was performed to indicated patient had obstructed uropathy of the left ureter with multiple organ failure to include hypotension, liver enzyme elevation, renal failure. Patient was given minimal IV bolus in the emergency department, will give further IV fluid for blood pressure management. However patient does have history of hypotension which this could be her normal blood pressure. Patient was found to have elevated troponin with left bundle branch block on EKG. Cardiology was consulted for recommendations. Patient recommended ICU admission for critical care management. Patient be transferred to [facility] for continued care. 07/[address] abdomen/pelvis yesterday which showed obstructive uropathy 2nd left ureter stone s/p left ureteral stent placement last night. She is on Neosyn 40 mics. T:100.7 07/23 No events overnight. Awake and alert. Off Neosyn. Tmax 102. Objective Vital Signs Date Time Temp Pulse Resp B/P (MAP) Pulse Ox O2 Delivery O2 Flow Rate FiO2 07/23/17 06:00 71 07/23/17 04:00 98.6 18 96/53 (67) 100 07/22/17 20:48 Nasal Cannula 2.00 Intake and Output 07/23/17 07/23/17 07/24/17 08:00 16:00 00:00 Intake Total 1200 ml Balance 1200 ml Result Diagram: 07/23/17 0450 07/23/17 0450 Other Results Laboratory Tests Test 07/23/17 00:44 07/23/17 04:50 Activated Partial Thromboplast Time 35.3 SEC White Blood Count 18.6 TH/MM3 Red Blood Count 2.82 MIL/MM3 Hemoglobin 9.7 GM/DL Hematocrit 29.2 % Mean Corpuscular Volume 103.7 FL Mean Corpuscular Hemoglobin 34.2 PG Mean Corpuscular Hemoglobin Concent 33.0 % Red Cell Distribution Width 13.9 % Platelet Count 38 TH/MM3 Mean Platelet Volume 10.8 FL Neutrophils (%) (Auto) 94.4 % Lymphocytes (%) (Auto) 2.1 % Monocytes (%) (Auto) 3.4 % Eosinophils (%) (Auto) 0.0 % Basophils (%) (Auto) 0.1 % Neutrophils # (Auto) 17.5 TH/MM3 Lymphocytes # (Auto) 0.4 TH/MM3 Monocytes # (Auto) 0.6 TH/MM3 Eosinophils # (Auto) 0.0 TH/MM3 Basophils # (Auto) 0.0 TH/MM3 CBC Comment AUTO DIFF Blood Urea Nitrogen 36 MG/DL Creatinine 1.54 MG/DL Random Glucose 118 MG/DL Total Protein 4.7 GM/DL Albumin 2.0 GM/DL Calcium Level 7.4 MG/DL Alkaline Phosphatase 86 U/L Aspartate Amino Transf (AST/SGOT) 41 U/L Alanine Aminotransferase (ALT/SGPT) 43 U/L Total Bilirubin 0.9 MG/DL Sodium Level 141 MEQ/L Potassium Level 3.8 MEQ/L Chloride Level 112 MEQ/L Carbon Dioxide Level 20.8 MEQ/L Anion Gap 8 MEQ/L Estimat Glomerular Filtration Rate 32 ML/MIN Protein Corrected Calcium 8.8 MG/DL Imaging Last Impressions Gall Bladder Ultrasound 07/21/17 1812 Signed Impressions: Service Date/Time: Friday, July 21, 2017 20:50 - CONCLUSION: 1. Cholelithiasis without sonographic evidence to suggest acute cholecystitis. Luis Fernando Torres Jr., MD Chest X-Ray 07/21/17 0000 Signed Impressions: Service Date/Time: Friday, July 21, 2017 11:56 - CONCLUSION: 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 No acute cardiopulmonary process. Edward Sims MD Abdomen/Pelvis CT 07/21/17 0000 Signed Impressions: Service Date/Time: Friday, July 21, 2017 13:28 - CONCLUSION: 8 x 5 mm calculus left ureter level of L4 with secondary obstructive uropathy. Gallstones. Uncomplicated diverticuli of the colon. Degenerative changes of the lumbar spine. Edward Sims MD Objective Remarks GENERAL: Patient is lying in bed in NAD SKIN: Warm and dry. HEAD: Normocephalic. EYES: No scleral icterus. No injection or drainage. NECK: Supple, trachea midline. No JVD or lymphadenopathy. CARDIOVASCULAR: Regular rate and rhythm without murmurs, gallops, or rubs. RESPIRATORY: Breath sounds equal bilaterally. No accessory muscle use. GASTROINTESTINAL: Abdomen soft, non-tender, nondistended. MUSCULOSKELETAL: No cyanosis, or edema. Neuro: Awake and alert A/P Problem List: (1) Septic shock ICD Code: A41.9 - Sepsis, unspecified organism; R65.21 - Severe sepsis with septic shock (2) Non-ST elevated myocardial infarction ICD Code: I21.4 - Non-ST elevation (NSTEMI) myocardial infarction (3) Obstructive uropathy ICD Code: N13.9 - Obstructive and reflux uropathy, unspecified (4) Acute renal failure ICD Code: N17.9 - Acute kidney failure, unspecified (5) Elevated liver enzymes ICD Code: R74.8 - Abnormal levels of other serum enzymes (6) Leukocytosis ICD Code: D72.829 - Elevated white blood cell count, unspecified Status: Acute (7) Lactic acidosis ICD Code: E87.2 - Acidosis Status: Acute Assessment and Plan NEUROLOGY Monitor neuro status, awake and alert PULMONOLOGY Continue with oxygen maintain O2 sats greater than 92% Incentive spirometry CARDIOLOGY Septic shock History of low blood pressure History of congestive heart failure Non-ST elevated myocardial infarctions Left bundle branch block Off Neosyn monitor HR and BP keep MAP>65mmHg Lactic acid cleared-1.9 Echo showed EF 55-60%, Grade 1 diastolic dysfunction, severe pulmonary HTN, PAP> 70mmHg Cards is following- Dr. Carranza GASTROENTEROLOGY Elevated liver enzymes Monitor LFTs's (trending down) US liver: Cholelithiasis without sonographic evidence to suggest acute cholecystitis On PO diet GENITOURINARY Obstructive uropathy with renal stone in left ureter Acute renal failure s/p Left ureter stent placement 07/21 Monitor renal function, I/O's, avoid nephrotoxins Renal function improving with Cr: 1.54 today from 2.26 Decrease IVF D5NS@42 ml/hr INFECTIOUS DISEASE s/p Septic shock Gram negative bacteremia Leukocytosis with bandemia Lactic acidosis. Urinary tract infection Continue with Zosyn, ID is following Monitor for signs of infections ( Fever, WBC) BC from 07/21: GNR, E.coli, BC 07/22: NGTD Urine cx 07/21: GNR ENDOCRINOLOGY SSI to maintain Euglycemia HEMATOLOGY Anemia Thrombocytopenia Monitor CBC, check coags, Fibrinogen level r/o DIC PROPHYLAXIS DVT prevention with SCD, not on DVT prophylaxis due to thrombocytopenia with PLT count < 50 GI protection: Pepcid LINES Peripheral IVs Level 3 Problem Qualifiers (1) Leukocytosis: Qualified Codes: D72.829 - Elevated white blood cell count, unspecified Chas Beckwith MD Jul 23, 2017 07:55
--- NOTE | 2017-07-23 08:06 | PD.CARD.PN ---
Subjective Subjective Remarks Denies dyspnea, CP, dizziness, palpitations. Slept well. Objective Medications Item Value Date Time Phenylephrine HCl 500 ml @ 30 mls/hr 07/21/171814 40 mg/Dextrose TITRATE PRN/IV 07/21/171843 Current Medications Medications (Trade) Dose Ordered Sig/Bill Route Start Time Stop Time Status Last Admin (NS Flush) 2 ml UNSCH PRN IV FLUSH 07/21/17 15:45 (NS Flush) 2 ml BID IV FLUSH 07/21/17 21:00 07/22/17 20:18 (Zofran Inj) 4 mg Q6H PRN IV PUSH 07/21/17 15:45 (Restoril) 15 mg HS PRN PO 07/21/17 15:45 Miscellaneous Information 1 Q361D XX 07/21/17 15:45 (Chlorhexidine 2% Cloth) 3 pack Taper DAILY@04 TOP 07/22/17 04:00 07/18/18 03:59 07/23/17 00:30 (Chlorhexidine 2% Cloth) 3 pack UNSCH PRN TOP 07/21/17 15:45 (Summer-Colace) 1 tab BID PO 07/21/17 21:00 07/22/17 20:17 (Milk Of Magnesia Liq) 30 ml Q12H PRN PO 07/21/17 15:45 (Senokot) 17.2 mg Q12H PRN PO 07/21/17 15:45 (Dulcolax Supp) 10 mg DAILY PRN RECTAL 07/21/17 15:45 (Lactulose Liq) 30 ml DAILY PRN PO 07/21/17 15:45 Piperacillin Sod/ Tazobactam Sod 50 ml @ 100 mls/hr Q12H IV 07/22/17 01:00 07/23/17 00:30 Dextrose/Sodium Chloride 1,000 ml @ 42 mls/hr [id number] IV 07/21/17 15:45 07/23/17 05:06 (Pepcid) 20 mg HS PO 07/21/17 21:00 07/22/17 20:17 Phenylephrine HCl 40 mg/Dextrose 500 ml @ 30 mls/hr TITRATE PRN IV 07/21/17 18:15 07/21/17 18:44 (Brethine Inj) 1 mg UNSCH PRN SQ 07/21/17 18:15 (D50w (Vial) Inj) 50 ml UNSCH PRN IV PUSH 07/22/17 08:30 (Glucagon Inj) 1 mg UNSCH PRN OTHER 07/22/17 08:30 (NovoLIN R SUPPLEMENTAL SCALE) 1 Q4H SQ 07/22/17 09:00 07/22/17 13:00 (Tylenol) 650 mg Q4H PRN PO 07/22/17 20:00 07/22/17 20:17 Vital Signs / I&O Vital Signs Date Time Temp Pulse Resp B/P (MAP) Pulse Ox O2 Delivery O2 Flow Rate FiO2 07/23/17 06:00 71 07/23/17 04:00 98.6 66 18 96/53 (67) 100 07/23/17 04:00 66 07/23/17 02:00 65 07/23/17 00:00 67 07/23/17 00:00 98.2 67 22 94/52 (66) 97 07/22/17 22:04 100.2 07/22/17 22:00 82 07/22/17 20:48 99 Nasal Cannula 2.00 07/22/17 20:00 78 07/22/17 20:00 102.2 78 29 132/59 (83) 98 07/22/17 18:00 92 07/22/17 16:00 98.0 78 33 108/53 (71) 99 07/22/17 16:00 92 07/22/17 14:00 92 07/22/17 12:00 92 07/22/17 12:00 98.3 86 36 99/57 (71) 94 07/22/17 10:00 92 07/22/17 08:03 98 Nasal Cannula 2.00 I/O 07/22/17 07/22/17 07/22/17 07/23/17 07/23/17 07/23/17 07:00 15:00 23:00 07:00 15:00 23:00 Intake Total 1050 ml 560 ml 1200 ml Output Total 750 ml 230 ml 700 ml Balance 300 ml -230 ml -140 ml 1200 ml Intake Oral 560 ml 150 ml IV Total 1050 ml 1050 ml Output Urine Total 750 ml 230 ml 700 ml # Voids 3 # Bowel Movements 0 1 Physical Exam GENERAL: Well developed, well nourished. No acute distress. HEENT: Jugular venous pressure is normal. CHEST: Lungs clear to auscultation anteriorly. CARDIAC: Regular rate and rhythm without S3, S4. I/ systolic murmur apex. ABDOMEN: Soft, nontender, no hepatosplenomegaly. Bowel sounds present. EXTREMITIES: SCD's in place. Laboratory Laboratory Tests Test 07/23/17 00:44 07/23/17 04:50 Activated Partial Thromboplast Time 35.3 SEC White Blood Count 18.6 TH/MM3 Red Blood Count 2.82 MIL/MM3 Hemoglobin 9.7 GM/DL Hematocrit 29.2 % Mean Corpuscular Volume 103.7 FL Mean Corpuscular Hemoglobin 34.2 PG Mean Corpuscular Hemoglobin Concent 33.0 % Red Cell Distribution Width 13.9 % Platelet Count 38 TH/MM3 Mean Platelet Volume 10.8 FL Neutrophils (%) (Auto) 94.4 % Lymphocytes (%) (Auto) 2.1 % Monocytes (%) (Auto) 3.4 % Eosinophils (%) (Auto) 0.0 % Basophils (%) (Auto) 0.1 % Neutrophils # (Auto) 17.5 TH/MM3 Lymphocytes # (Auto) 0.4 TH/MM3 Monocytes # (Auto) 0.6 TH/MM3 Eosinophils # (Auto) 0.0 TH/MM3 Basophils # (Auto) 0.0 TH/MM3 CBC Comment AUTO DIFF Blood Urea Nitrogen 36 MG/DL Creatinine 1.54 MG/DL Random Glucose 118 MG/DL Total Protein 4.7 GM/DL Albumin 2.0 GM/DL Calcium Level 7.4 MG/DL Alkaline Phosphatase 86 U/L Aspartate Amino Transf (AST/SGOT) 41 U/L Alanine Aminotransferase (ALT/SGPT) 43 U/L Total Bilirubin 0.9 MG/DL Sodium Level 141 MEQ/L Potassium Level 3.8 MEQ/L Chloride Level 112 MEQ/L Carbon Dioxide Level 20.8 MEQ/L Anion Gap 8 MEQ/L Estimat Glomerular Filtration Rate 32 ML/MIN Protein Corrected Calcium 8.8 MG/DL Assessment and Plan Problem List: (1) Elevated troponin ICD Codes: R74.8 - Abnormal levels of other serum enzymes Status: Acute Plan: Cardiac status stable overnight. Overall no evidence for ACS. Elevated troponin levels though in setting of acute renal insufficiency. No symptoms to suggest angina. Echo unremarkable except LVH, possible severe pulmonary hypertension with systolic pulmonary pressure 60-70 mm Hg, ?etiology. REC no additional cardiac w/u I have given patient note regarding the pulmonary hypertension to take to her PCP [place] for further w/u will f/u as needed (2) Pulmonary hypertension ICD Codes: I27.20 - Pulmonary hypertension, unspecified Status: Chronic Plan: Fairly good systolic pulmonary pressure measurement on echo yesterday, 60 -70 mm Hg. Etiology unclear. No history of lung disease. Rec outpatient evaluation by her PCP, note given to patient to take to him/her. Code Status full code Discussed Condition With patient Pedro Carranza MD Jul 23, 2017 08:06
[2017-07-23] MEDS: DOCUSATE SODIUM 50 MG/SENNA 8.6 MG TAB PO SCH ×2 (09:00→20:06)
[2017-07-23] MEDS: SODIUM CHLORIDE 0.9% FLUSH 10 ML FLUSH IV FLUSH SCH ×2 (09:00→20:05)
[2017-07-23 09:03] LABS: BANDS 13 % (0-6); LYMPHOCYTES 4 % (9-44); MONOCYTES 2 % (0-8); NEUTROPHIL # MANUAL DIFF 17.5 TH/MM3 (1.8-7.7); POLYS (SEG NEUTROPHILS) 81 % (16-70)
--- NOTE | 2017-07-23 10:26 | MP ---
cc: DAYAN DEMARCO MD DATE OF SURGERY: 07/20/2017 PREOPERATIVE DIAGNOSIS: 1. Left obstructing ureteral stone. 2. Urosepsis. 3. Hypotension. POSTOPERATIVE DIAGNOSIS: 1. Left obstructing ureteral stone. 2. Urosepsis. 3. Hypotension. OPERATIVE PROCEDURE PERFORMED: 1. Cystoscopy. 2. Left ureteral stent placement. SURGEON: Dayan Demarco MD. PERTINENT FINDINGS: Successful placement of left 6 x 24 double-J ureteral stent. HISTORY OF PRESENT ILLNESS: Kelli Rivas is an 82-year-old female with a history of congestive heart failure admitted to the hospital due to fevers and chills. She underwent CT scan which identified a left obstructing ureteral stone. In the emergency department she was found to be hypotensive with a white count over 20 and renal failure with creatinine over 3. She also had elevated troponin levels. The patient has required emergent decompression of the left collecting system. Interventional radiology was unavailable and therefore she was taken to the operating room for cystoscopy and left ureteral stent placement. The patient was discussed the risks and benefits and informed consent was obtained from the patient preoperatively on an emergent basis. DESCRIPTION OF THE PROCEDURE IN DETAIL: After prior informed consent was obtained, the patient was brought to the operating room and remained supine on the operating room table. Bilateral lower extremity SCDs were in place. The patient was then placed under general anesthesia. The patient was then placed in the lithotomy position and prepped and draped in the standard surgical fashion. After a proper time out was completed, the rigid cystoscope was inserted through the ureter and into the bladder. The urethral mucosa was within normal limits without any lesions identified. The left ureteral orifice was immediately identified. This was encountered using a guidewire and advanced up to the left proximal ureter. There was some resistance noted at the proximal ureter; however, the wire was able to be passed into the left renal pelvis. At this point, a 6 x 24 double-J ureteral stent was successfully placed in the left collecting system with a good curl in the renal pelvis as well as in the bladder. At this point, the patient's bladder was emptied. A Kulkarni catheter was decided to be inserted in order to provide adequate maximal drainage. The patient was then recovered from anesthesia and taken to the post-anesthesia care unit in good and stable. The patient tolerated the procedure well. DISPOSITION: The patient is to be transferred to the intensive care unit with close observation. Her Kulkarni catheter may be removed tomorrow morning. Noah Carmona/RUSSELL /5:52 PM /10:14 AM
[2017-07-23 10:37] LABS: INTERNATIONAL NORMALIZED RATIO 1.1 RATIO; PROTHROMBIN TIME - PATIENT 10.7 SEC (9.8-11.6)
--- NOTE | 2017-07-23 12:17 | EKG ---
Date Performed: 07/22/2017 Time Performed: 22:00:48 PTAGE: 82 years EKG: Sinus rhythm WITH FIRST DEGREE AV BLOCK WITH OCCASIONAL SUPRAVENTRICULAR PREMATURE COMPLEXES LEFT BUNDLE BRANCH B LOCK ABNORMAL ECG Compared to PREVIOUS TRACING , the rhythm appears to be sinus with first degree block. PREVIOUS JOSE MANUEL N07/21/2017 11.44 DOCTOR: Davonte Pacheco Interpretating Date/Time 07/23/2017 12:15:51
--- NOTE | 2017-07-23 12:17 | EKG ---
Date Performed: 07/23/2017 Time Performed: 08:58:28 PTAGE: 82 years EKG: Sinus rhythm WITH FIRST DEGREE AV BLOCK AND OCCASIONAL PACs MARKED LEFT AXIS DEVIATION LEFT BUNDLE BRANCH BLOCK A BNORMAL ECG Since PREVIOUS TRACING , no significant change noted PREVIOUS TRACIN07/22/2017 22.00 DOCTOR: Davonte Pacheco Interpretating Date/Time 07/23/2017 12:16:32
--- NOTE | 2017-07-23 19:57 | HHI.IDPN ---
Subjective Subjective Remarks more positive blood clx, again high grade 4/4 feeels better afebrile Urine isolate is S to zosyn Antibiotics zosyn Allergies: Coded Allergies: ciprofloxacin (Verified Allergy, Unknown, 07/21/17) Objective . Vital Signs Date Time Temp Pulse Resp B/P (MAP) Pulse Ox O2 Delivery O2 Flow Rate FiO2 07/23/17 14:00 107 07/23/17 12:00 98.0 102 32 107/58 (74) 88 07/23/17 12:00 107 07/23/17 10:00 107 07/23/17 08:00 107 07/23/17 08:00 99.5 73 31 139/64 (89) 93 07/23/17 06:00 71 07/23/17 04:00 98.6 66 18 96/53 (67) 100 07/23/17 04:00 66 07/23/17 02:00 65 07/23/17 00:00 67 07/23/17 00:00 98.2 67 22 94/52 (66) 97 07/22/17 22:04 100.2 07/22/17 22:00 82 07/22/17 20:48 99 Nasal Cannula 2.00 07/22/17 20:00 78 07/22/17 20:00 102.2 78 29 132/59 (83) 98 . Laboratory Tests Test 07/22/17 05:38 07/23/17 04:50 White Blood Count 19.5 TH/MM3 18.6 TH/MM3 Red Blood Count 3.18 MIL/MM3 2.82 MIL/MM3 Hemoglobin 10.9 GM/DL 9.7 GM/DL Hematocrit 32.9 % 29.2 % Mean Corpuscular Volume 103.4 FL 103.7 FL Mean Corpuscular Hemoglobin 34.2 PG 34.2 PG Mean Corpuscular Hemoglobin Concent 33.0 % 33.0 % Red Cell Distribution Width 14.0 % 13.9 % Platelet Count 51 TH/MM3 38 TH/MM3 Mean Platelet Volume 9.5 FL 10.8 FL Neutrophils (%) (Auto) 93.5 % 94.4 % Lymphocytes (%) (Auto) 2.1 % 2.1 % Monocytes (%) (Auto) 3.1 % 3.4 % Eosinophils (%) (Auto) 1.2 % 0.0 % Basophils (%) (Auto) 0.1 % 0.1 % Neutrophils # (Auto) 18.2 TH/MM3 17.5 TH/MM3 Lymphocytes # (Auto) 0.4 TH/MM3 0.4 TH/MM3 Monocytes # (Auto) 0.6 TH/MM3 0.6 TH/MM3 Eosinophils # (Auto) 0.2 TH/MM3 0.0 TH/MM3 Basophils # (Auto) 0.0 TH/MM3 0.0 TH/MM3 CBC Comment AUTO DIFF AUTO DIFF Differential Total Cells Counted 100 100 Neutrophils % (Manual) 60 % 81 % Band Neutrophils % 23 % 13 % Lymphocytes % 3 % 4 % Monocytes % 1 % 2 % Neutrophils # (Manual) 18.7 TH/MM3 17.5 TH/MM3 Metamyelocytes 13 % Differential Comment FINAL DIFF MANUAL FINAL DIFF MANUAL Toxic Vacuolation PRESENT Dohle Bodies PRESENT Platelet Estimate LOW LOW Platelet Morphology Comment NORMAL ENLARGED Ovalocytes 1+ Laboratory Tests Test 07/21/17 21:21 07/22/17 00:36 07/22/17 05:38 07/23/17 04:50 Blood Urea Nitrogen 47 MG/DL 43 MG/DL 36 MG/DL Creatinine 2.62 MG/DL 2.26 MG/DL 1.54 MG/DL Random Glucose 102 MG/DL 109 MG/DL 118 MG/DL Calcium Level 7.8 MG/DL 7.4 MG/DL 7.4 MG/DL Sodium Level 138 MEQ/L 139 MEQ/L 141 MEQ/L Potassium Level 4.6 MEQ/L 4.2 MEQ/L 3.8 MEQ/L Chloride Level 103 MEQ/L 106 MEQ/L 112 MEQ/L Carbon Dioxide Level 25.5 MEQ/L 24.6 MEQ/L 20.8 MEQ/L Anion Gap 10 MEQ/L 8 MEQ/L 8 MEQ/L Estimat Glomerular Filtration Rate 17 ML/MIN 21 ML/MIN 32 ML/MIN Lactic Acid Level 2.2 mmol/L 1.9 mmol/L Total Creatine Kinase 187 U/L Creatine Kinase MB 8.6 NG/ML Troponin I 0.91 NG/ML Total Protein 5.0 GM/DL 4.7 GM/DL Albumin 2.4 GM/DL 2.0 GM/DL Alkaline Phosphatase 95 U/L 86 U/L Aspartate Amino Transf (AST/SGOT) 83 U/L 41 U/L Alanine Aminotransferase (ALT/SGPT) 64 U/L 43 U/L Total Bilirubin 1.2 MG/DL 0.9 MG/DL Protein Corrected Calcium 8.6 MG/DL 8.8 MG/DL Microbiology Date/Time Source Procedure Growth Status 07/23/17 15:18 Blood Peripheral Aerobic Blood Culture Pending Received 07/23/17 15:18 Blood Peripheral Anaerobic Blood Culture Pending Received 07/23/17 15:10 Blood Peripheral Aerobic Blood Culture Pending Received 07/23/17 15:10 Blood Peripheral Anaerobic Blood Culture Pending Received 07/22/17 11:19 Blood Peripheral Aerobic Blood Culture - Preliminary Gram Negative James Resulted 07/22/17 11:19 Anaerobic Blood Culture - Preliminary Gram Negative James Resulted 07/22/17 11:12 Blood Peripheral Aerobic Blood Culture - Preliminary Gram Negative James Resulted 07/22/17 11:12 Anaerobic Blood Culture - Preliminary Gram Negative James Resulted 07/21/17 12:30 Blood Peripheral Aerobic Blood Culture - Preliminary Escherichia Coli Resulted 07/21/17 12:30 Blood Peripheral Anaerobic Blood Culture - Preliminary NO GROWTH IN 2 DAYS Resulted 07/21/17 12:25 Blood Peripheral Aerobic Blood Culture - Preliminary Escherichia Coli Resulted 07/21/17 12:25 Anaerobic Blood Culture - Preliminary Escherichia Coli Resulted 07/21/17 11:50 Nasal Aspirate Influenza Types A,B Antigen (JAVID) - Final NEGATIVE FOR FLU A AND B ANTIGEN.... Complete 07/21/17 12:24 Urine Clean Catch Urine Culture - Final Escherichia Coli Complete Imaging Last Impressions Gall Bladder Ultrasound 07/21/17 1812 Signed Impressions: Service Date/Time: Friday, July 21, 2017 20:50 - CONCLUSION: 1. Cholelithiasis without sonographic evidence to suggest acute cholecystitis. Luis Fernando Torres Jr., MD Chest X-Ray 07/21/17 0000 Signed Impressions: Service Date/Time: Friday, July 21, 2017 11:56 - CONCLUSION: 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 No acute cardiopulmonary process. Edward Sims MD Abdomen/Pelvis CT 07/21/17 0000 Signed Impressions: Service Date/Time: Friday, July 21, 2017 13:28 - CONCLUSION: 8 x 5 mm calculus left ureter level of L4 with secondary obstructive uropathy. Gallstones. Uncomplicated diverticuli of the colon. Degenerative changes of the lumbar spine. Edward Sims MD Physical Exam CONSTITUTIONAL/GENERAL: This is an adequately nourished patient, in no apparent distress. TUBES/LINES/DRAINS: SKIN: No jaundice, rashes, or lesions. Skin temperature appropriate. Not diaphoretic. CARDIOVASCULAR: Regular rate and rhythm without murmurs, gallops, or rubs. No JVD. Peripheral pulses symmetric. RESPIRATORY/CHEST: Symmetric, unlabored respirations. Clear to auscultation. Breath sounds equal bilaterally. No wheezes, rales, or rhonchi. GASTROINTESTINAL: Abdomen soft, non-tender, nondistended. GENITOURINARY: Without palpable bladder distension. Kulkarni catheter in place. MUSCULOSKELETAL: Extremities without clubbing, cyanosis, or edema. NEUROLOGICAL: Awake and alert. Motor and sensory grossly within normal limits. Follows commands. Clear speech. Moves all extremities. PSYCHIATRIC: No obvious anxiety/depression. no apparent hallucinations or other psychotic thought process. Assessment & Plan Remarks Assessment and Plan Assessment and Plan Complicated bacteremic UTI 2/2 E.coli in the settings of obstructive uropathy 2 /2 kidney stone - persistent high grade bacteremia despite appropriate coverage Sp L ureter stent placement ARF: improving Leukocytpsis - improving cont zosyn fu clx repeat BC to document clearance Sakshi Schmitz MD Jul 23, 2017 19:57
[2017-07-23] MEDS: FAMOTIDINE 20 MG TAB PO SCH (20:05)
[2017-07-23] MEDS: ACETAMINOPHEN 325 MG TAB PO PRN (20:07)
[2017-07-24] VITALS (13 sets, daily range): BP systolic 106–181; BP diastolic 56–81; PULSE 63–100; RESP 21–35; TEMP 98–99.2; O2SAT 92–97
[2017-07-24] MEDS: INSULIN NovoLIN REGULAR SUPPLEMENTAL SCALE SQ SCH ×6 (01:00→20:13)
[2017-07-24] MEDS: CHLORHEXIDINE GLUCONATE 2 % 1 PACK (2 CLOTHS) TOP SCH (01:27)
[2017-07-24] MEDS: PIPERACIL-TAZO 3.375 GM PREMIX 50 ML IV SCH ×2 (01:27→12:42)
[2017-07-24 08:38] LABS: AUTOMATED NEUTROPHIL # 12.7 TH/MM3 (1.8-7.7); BASOPHIL % 0.1 % (0.0-2.0); EOSINOPHIL % 0.1 % (0.0-4.0); HEMATOCRIT 29.8 % (35.0-46.0); HEMOGLOBIN 9.9 GM/DL (11.6-15.3); LYMPH % 3.7 % (9.0-44.0); LYMPHOCYTE # 0.5 TH/MM3 (1.0-4.8); MEAN CELL VOLUME 102.8 FL (80.0-100.0); MEAN CORPUSCULAR HGB CONC 33.1 % (32.0-36.0); MEAN PLATELET VOLUME 10.7 FL (7.0-11.0); MONO % 6.4 % (0.0-8.0); MONOCYTE # 0.9 TH/MM3 (0-0.9); NEUT % 89.7 % (16.0-70.0); PLATELET COUNT 54 TH/MM3 (150-450); WHITE BLOOD COUNT 14.2 TH/MM3 (4.0-11.0)
--- NOTE | 2017-07-24 08:51 | HHI.CCPN ---
Subjective Remarks/Hospital Course This is a 82-year-old female with known history of rheumatoid arthritis, congestive heart failure, hypotension who presented to hospital because of fever and chills. Patient states that she is in normal state of health when she flew down here from [place] yesterday. While she was on a plane she developed fever and rigors. Patient states when she was walking yesterday she was very cold because of the eardrops at the airport. He stated a hotel last night and she did not improve and she continued to have chills and rigors. Because of that reason she came to the ER for evaluation. Patient had workup done emergency department found to have multiple abnormal findings with significant hypotension, however patient states that she has low blood pressure on a regular basis and this was diagnosed in April in [place]. Patient did have acute renal failure and after CT scan was performed to indicated patient had obstructed uropathy of the left ureter with multiple organ failure to include hypotension, liver enzyme elevation, renal failure. Patient was given minimal IV bolus in the emergency department, will give further IV fluid for blood pressure management. However patient does have history of hypotension which this could be her normal blood pressure. Patient was found to have elevated troponin with left bundle branch block on EKG. Cardiology was consulted for recommendations. Patient recommended ICU admission for critical care management. Patient be transferred to [facility] for continued care. 07/[address] abdomen/pelvis yesterday which showed obstructive uropathy 2nd left ureter stone s/p left ureteral stent placement last night. She is on Neosyn 40 mics. T:100.7 07/23 No events overnight. Awake and alert. Off Neosyn. Tmax 102. 07/24 Patient is lying in bed in [facility]. T:100.2 last night. Objective Vital Signs Date Time Temp Pulse Resp B/P (MAP) Pulse Ox O2 Delivery O2 Flow Rate FiO2 07/24/17 06:00 76 07/24/17 04:00 99.2 24 112/58 (76) 95 07/23/17 19:55 Nasal Cannula 2.00 Intake and Output 07/24/17 07/24/17 07/24/17 07:59 15:59 23:59 Intake Total 152 ml Balance 152 ml Result Diagram: 07/23/17 0450 07/23/17 0450 Other Results Laboratory Tests Test 07/23/17 10:20 07/24/17 08:18 Prothrombin Time 10.7 SEC Prothromb Time International Ratio 1.1 RATIO Activated Partial Thromboplast Time 29.4 SEC Fibrinogen 705 mg/dL Imaging Last Impressions Gall Bladder Ultrasound 07/21/172 Signed Impressions: Service Date/Time: Friday, July 21, 2017 20:50 - CONCLUSION: 1. Cholelithiasis without sonographic evidence to suggest acute cholecystitis. Luis Fernando Torres Jr., MD Chest X-Ray 07/21/17 0000 Signed Impressions: Service Date/Time: Friday, July 21, 2017 11:56 - CONCLUSION: 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 No acute cardiopulmonary process. Edward Sims MD Abdomen/Pelvis CT 07/21/17 0000 Signed Impressions: Service Date/Time: Friday, July 21, 2017 13:28 - CONCLUSION: 8 x 5 mm calculus left ureter level of L4 with secondary obstructive uropathy. Gallstones. Uncomplicated diverticuli of the colon. Degenerative changes of the lumbar spine. Edward Sims MD Objective Remarks GENERAL: Patient is lying in bed in NAD SKIN: Warm and dry. HEAD: Normocephalic. EYES: No scleral icterus. No injection or drainage. NECK: Supple, trachea midline. No JVD or lymphadenopathy. CARDIOVASCULAR: Regular rate and rhythm without murmurs, gallops, or rubs. RESPIRATORY: Breath sounds equal bilaterally. No accessory muscle use. GASTROINTESTINAL: Abdomen soft, non-tender, nondistended. MUSCULOSKELETAL: No cyanosis, or edema. Neuro: Awake and alert A/P Problem List: (1) Septic shock ICD Code: A41.9 - Sepsis, unspecified organism; R65.21 - Severe sepsis with septic shock (2) Non-ST elevated myocardial infarction ICD Code: I21.4 - Non-ST elevation (NSTEMI) myocardial infarction (3) Obstructive uropathy ICD Code: N13.9 - Obstructive and reflux uropathy, unspecified (4) Acute renal failure ICD Code: N17.9 - Acute kidney failure, unspecified (5) Elevated liver enzymes ICD Code: R74.8 - Abnormal levels of other serum enzymes (6) Leukocytosis ICD Code: D72.829 - Elevated white blood cell count, unspecified Status: Acute (7) Lactic acidosis ICD Code: E87.2 - Acidosis Status: Acute Assessment and Plan NEUROLOGY Monitor neuro status, awake and alert PULMONOLOGY Continue with oxygen maintain O2 sats greater than 92% Incentive spirometry CARDIOLOGY Septic shock History of low blood pressure History of congestive heart failure Non-ST elevated myocardial infarctions Left bundle branch block Monitor HR and BP keep MAP>65mmHg Lactic acid cleared-1.9 Echo showed EF 55-60%, Grade 1 diastolic dysfunction, severe pulmonary HTN, PAP> 70mmHg Cards is following- Dr. Carranza GASTROENTEROLOGY Elevated liver enzymes Monitor LFTs's (trending down) US liver: Cholelithiasis without sonographic evidence to suggest acute cholecystitis On PO diet GENITOURINARY Obstructive uropathy with renal stone in left ureter Acute renal failure s/p Left ureter stent placement 07/21 Monitor renal function, I/O's, avoid nephrotoxins Renal function improving , follow up BMP today IVF D5NS@42 ml/hr INFECTIOUS DISEASE s/p Septic shock Gram negative bacteremia Leukocytosis with bandemia Lactic acidosis. Urinary tract infection Continue with Zosyn, ID is following Monitor for signs of infections ( Fever, WBC) BC from 07/21:, E.coli, BC 07/22: GNR, 07/23: NGTD Urine cx 07/21: E.coli ENDOCRINOLOGY SSI to maintain Euglycemia HEMATOLOGY Anemia Thrombocytopenia [facility] 2nd sepsis Monitor CBC, coags, Fibrinogen level : 705 PROPHYLAXIS DVT prevention with SCD, not on DVT prophylaxis due to thrombocytopenia with PLT count < 50 GI protection: Pepcid LINES Peripheral IVs Level 3 Problem Qualifiers (1) Leukocytosis: Qualified Codes: D72.829 - Elevated white blood cell count, unspecified Chas Beckwith MD Jul 24, 2017 08:51
[2017-07-24] MEDS: SODIUM CHLORIDE 0.9% FLUSH 10 ML FLUSH IV FLUSH SCH ×2 (09:07→20:12)
[2017-07-24] MEDS: DOCUSATE SODIUM 50 MG/SENNA 8.6 MG TAB PO SCH ×2 (09:07→20:12)
[2017-07-24 09:23] LABS: BANDS 8 % (0-6); LYMPHOCYTES 2 % (9-44); MONOCYTES 4 % (0-8); NEUTROPHIL # MANUAL DIFF 13.3 TH/MM3 (1.8-7.7); POLYS (SEG NEUTROPHILS) 86 % (16-70)
[2017-07-24 09:24] LABS: OVALOCYTES 1+ (NORMAL); TEARDROP RBCS 1+ (NORMAL)
[2017-07-24 10:23] LABS: ALBUMIN 2.1 GM/DL (3.4-5.0); ALT (GPT) 38 U/L (10-53); AST (GOT) 37 U/L (15-37); BICARBONATE 24.3 MEQ/L (21.0-32.0); BLOOD UREA NITROGEN 34 MG/DL (7-18); CALCIUM 7.7 MG/DL (8.5-10.1); CHLORIDE 112 MEQ/L (98-107); CREATININE 1.26 MG/DL (0.50-1.00); GLOMERULAR FILTRATION RATE 41 ML/MIN (>89); GLUCOSE,RANDOM 94 MG/DL (74-106); MAGNESIUM 1.9 MG/DL (1.5-2.5); PHOSPHORUS 1.7 MG/DL (2.5-4.9); SODIUM (NA) 143 MEQ/L (136-145)
[2017-07-24 10:25] LABS: ALKALINE PHOSPHATASE 165 U/L (45-117); TOTAL BILIRUBIN ADULT 1.5 MG/DL (0.2-1.0)
[2017-07-24] MEDS ORDERED: FUROSEMIDE 20 MG/2 ML VIAL IV PUSH ONE (11:00)
[2017-07-24] MEDS: FAMOTIDINE 20 MG TAB PO SCH (20:12)
[2017-07-25] VITALS (14 sets, daily range): BP systolic 120–144; BP diastolic 58–74; PULSE 64–79; RESP 20–34; TEMP 97.2–99.4; O2SAT 92–99
[2017-07-25] MEDS: INSULIN NovoLIN REGULAR SUPPLEMENTAL SCALE SQ SCH ×6 (01:00→21:00)
[2017-07-25] MEDS: PIPERACIL-TAZO 3.375 GM PREMIX 50 ML IV SCH ×2 (01:30→11:43)
[2017-07-25] MEDS: CHLORHEXIDINE GLUCONATE 2 % 1 PACK (2 CLOTHS) TOP SCH (01:31)
[2017-07-25 06:10] LABS: AUTOMATED NEUTROPHIL # 7.7 TH/MM3 (1.8-7.7); BASOPHIL % 0.2 % (0.0-2.0); EOSINOPHIL # 0.1 TH/MM3 (0-0.4); EOSINOPHIL % 0.6 % (0.0-4.0); HEMATOCRIT 27.2 % (35.0-46.0); HEMOGLOBIN 9.2 GM/DL (11.6-15.3); LYMPH % 6.7 % (9.0-44.0); LYMPHOCYTE # 0.7 TH/MM3 (1.0-4.8); MEAN CELL VOLUME 102.7 FL (80.0-100.0); MEAN CORPUSCULAR HEMOGLOBIN 34.6 PG (27.0-34.0); MEAN CORPUSCULAR HGB CONC 33.7 % (32.0-36.0); MONO % 13.9 % (0.0-8.0); MONOCYTE # 1.4 TH/MM3 (0-0.9); NEUT % 78.6 % (16.0-70.0); PLATELET COUNT 60 TH/MM3 (150-450); RED BLOOD COUNT 2.65 MIL/MM3 (4.00-5.30); RED CELL DISTRIBUTION WIDTH 13.9 % (11.6-17.2); WHITE BLOOD COUNT 9.8 TH/MM3 (4.0-11.0)
[2017-07-25 06:27] LABS: ALBUMIN 1.8 GM/DL (3.4-5.0); BICARBONATE 23.7 MEQ/L (21.0-32.0); CALCIUM 7.3 MG/DL (8.5-10.1); CALCIUM-PROTEIN CORRECTED 8.7 MG/DL (8.5-10.1); CREATININE 1.12 MG/DL (0.50-1.00); TOTAL BILIRUBIN ADULT 1.5 MG/DL (0.2-1.0); TOTAL PROTEIN 4.6 GM/DL (6.4-8.2)
--- NOTE | 2017-07-25 07:11 | HHI.CCPN ---
Subjective Remarks/Hospital Course This is a 82-year-old female with known history of rheumatoid arthritis, congestive heart failure, hypotension who presented to hospital because of fever and chills. Patient states that she is in normal state of health when she flew down here from [place] yesterday. While she was on a plane she developed fever and rigors. Patient states when she was walking yesterday she was very cold because of the eardrops at the airport. He stated a hotel last night and she did not improve and she continued to have chills and rigors. Because of that reason she came to the ER for evaluation. Patient had workup done emergency department found to have multiple abnormal findings with significant hypotension, however patient states that she has low blood pressure on a regular basis and this was diagnosed in April in [place]. Patient did have acute renal failure and after CT scan was performed to indicated patient had obstructed uropathy of the left ureter with multiple organ failure to include hypotension, liver enzyme elevation, renal failure. Patient was given minimal IV bolus in the emergency department, will give further IV fluid for blood pressure management. However patient does have history of hypotension which this could be her normal blood pressure. Patient was found to have elevated troponin with left bundle branch block on EKG. Cardiology was consulted for recommendations. Patient recommended ICU admission for critical care management. Patient be transferred to [facility] for continued care. 07/[address] abdomen/pelvis yesterday which showed obstructive uropathy 2nd left ureter stone s/p left ureteral stent placement last night. She is on Neosyn 40 mics. T:100.7 07/23 No events overnight. Awake and alert. Off Neosyn. Tmax 102. 07/24 Patient is lying in bed in [facility]. T:100.2 last night. 07/25 No events overnight. Renal function is improving with Cr: 1.12, WBC is trending down. Objective Vital Signs Date Time Temp Pulse Resp B/P (MAP) Pulse Ox O2 Delivery O2 Flow Rate FiO2 07/25/17 06:00 68 07/25/17 04:00 99.2 25 120/59 (79) 92 07/24/17 20:18 Nasal Cannula 2.00 Intake and Output 07/25/17 07/25/17 07/26/17 08:00 16:00 00:00 Intake Total 530 ml Output Total 500 ml Balance 30 ml Result Diagram: 07/25/17 0410 07/25/17 0410 Other Results Laboratory Tests Test 07/24/17 08:18 07/25/17 04:10 White Blood Count 14.2 TH/MM3 9.8 TH/MM3 Red Blood Count 2.90 MIL/MM3 2.65 MIL/MM3 Hemoglobin 9.9 GM/DL 9.2 GM/DL Hematocrit 29.8 % 27.2 % Mean Corpuscular Volume 102.8 FL 102.7 FL Mean Corpuscular Hemoglobin 34.0 PG 34.6 PG Mean Corpuscular Hemoglobin Concent 33.1 % 33.7 % Red Cell Distribution Width 14.0 % 13.9 % Platelet Count 54 TH/MM3 60 TH/MM3 Mean Platelet Volume 10.7 FL 11.0 FL Neutrophils (%) (Auto) 89.7 % 78.6 % Lymphocytes (%) (Auto) 3.7 % 6.7 % Monocytes (%) (Auto) 6.4 % 13.9 % Eosinophils (%) (Auto) 0.1 % 0.6 % Basophils (%) (Auto) 0.1 % 0.2 % Neutrophils # (Auto) 12.7 TH/MM3 7.7 TH/MM3 Lymphocytes # (Auto) 0.5 TH/MM3 0.7 TH/MM3 Monocytes # (Auto) 0.9 TH/MM3 1.4 TH/MM3 Eosinophils # (Auto) 0.0 TH/MM3 0.1 TH/MM3 Basophils # (Auto) 0.0 TH/MM3 0.0 TH/MM3 CBC Comment AUTO DIFF AUTO DIFF Differential Total Cells Counted 100 Neutrophils % (Manual) 86 % Band Neutrophils % 8 % Lymphocytes % 2 % Monocytes % 4 % Neutrophils # (Manual) 13.3 TH/MM3 Differential Comment FINAL DIFF MANUAL Platelet Estimate LOW Platelet Morphology Comment NORMAL Tear Drop Cells 1+ Ovalocytes 1+ Blood Urea Nitrogen 34 MG/DL 31 MG/DL Creatinine 1.26 MG/DL 1.12 MG/DL Random Glucose 94 MG/DL 82 MG/DL Total Protein 5.0 GM/DL 4.6 GM/DL Albumin 2.1 GM/DL 1.8 GM/DL Calcium Level 7.7 MG/DL 7.3 MG/DL Phosphorus Level 1.7 MG/DL Magnesium Level 1.9 MG/DL Alkaline Phosphatase 165 U/L 196 U/L Aspartate Amino Transf (AST/SGOT) 37 U/L 27 U/L Alanine Aminotransferase (ALT/SGPT) 38 U/L 31 U/L Total Bilirubin 1.5 MG/DL 1.5 MG/DL Sodium Level 143 MEQ/L 141 MEQ/L Potassium Level 3.8 MEQ/L 3.3 MEQ/L Chloride Level 112 MEQ/L 109 MEQ/L Carbon Dioxide Level 24.3 MEQ/L 23.7 MEQ/L Anion Gap 7 MEQ/L 8 MEQ/L Estimat Glomerular Filtration Rate 41 ML/MIN 47 ML/MIN Protein Corrected Calcium 8.7 MG/DL Imaging Last Impressions Gall Bladder Ultrasound 07/21/17 1812 Signed Impressions: Service Date/Time: Friday, July 21, 2017 20:50 - CONCLUSION: 1. Cholelithiasis without sonographic evidence to suggest acute cholecystitis. Luis Fernando Torres Jr., MD Chest X-Ray 07/21/17 0000 Signed Impressions: Service Date/Time: Friday, July 21, 2017 11:56 - CONCLUSION: 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 No acute cardiopulmonary process. Edward Sims MD Abdomen/Pelvis CT 07/21/17 0000 Signed Impressions: Service Date/Time: Friday, July 21, 2017 13:28 - CONCLUSION: 8 x 5 mm calculus left ureter level of L4 with secondary obstructive uropathy. Gallstones. Uncomplicated diverticuli of the colon. Degenerative changes of the lumbar spine. Edward Sims MD Objective Remarks GENERAL: Patient is lying in bed in NAD SKIN: Warm and dry. HEAD: Normocephalic. EYES: No scleral icterus. No injection or drainage. NECK: Supple, trachea midline. No JVD or lymphadenopathy. CARDIOVASCULAR: Regular rate and rhythm without murmurs, gallops, or rubs. RESPIRATORY: Breath sounds equal bilaterally. No accessory muscle use. GASTROINTESTINAL: Abdomen soft, non-tender, nondistended. MUSCULOSKELETAL: No cyanosis, or edema. Neuro: Awake and alert A/P Problem List: (1) Septic shock ICD Code: A41.9 - Sepsis, unspecified organism; R65.21 - Severe sepsis with septic shock (2) Non-ST elevated myocardial infarction ICD Code: I21.4 - Non-ST elevation (NSTEMI) myocardial infarction (3) Obstructive uropathy ICD Code: N13.9 - Obstructive and reflux uropathy, unspecified (4) Acute renal failure ICD Code: N17.9 - Acute kidney failure, unspecified (5) Elevated liver enzymes ICD Code: R74.8 - Abnormal levels of other serum enzymes (6) Leukocytosis ICD Code: D72.829 - Elevated white blood cell count, unspecified Status: Acute (7) Lactic acidosis ICD Code: E87.2 - Acidosis Status: Acute Assessment and Plan NEUROLOGY Monitor neuro status, awake and alert PULMONOLOGY Continue with oxygen maintain O2 sats greater than 92% Bronchodilators, check CXR CARDIOLOGY Afib History of low blood pressure History of CHF Non-ST elevated myocardial infarctions Left bundle branch block Monitor HR and BP keep MAP>65mmHg Lactic acid cleared-1.9 Echo showed EF 55-60%, Grade 1 diastolic dysfunction, severe pulmonary HTN, PAP> 70mmHg Cards is following- Dr. Carranza Patient is high risk for anticoagulation due to thrombocytopenia ( PLT count 60 today from 54) GASTROENTEROLOGY Elevated liver enzymes Monitor LFTs's (trending down) US liver: Cholelithiasis without sonographic evidence to suggest acute cholecystitis On PO diet GENITOURINARY Obstructive uropathy with renal stone in left ureter Acute renal failure s/p Left ureter stent placement 07/21 Monitor renal function, I/O's, avoid nephrotoxins, electrolytes replacement per protocol. Will need K, Phos replacement today Renal function improving , Cr: 1.12 today Diurese with Lasix 40mg x1 INFECTIOUS DISEASE s/p Septic shock Gram negative bacteremia/E,coli Leukocytosis with bandemia Lactic acidosis. Urinary tract infection Continue with Zosyn, ID is following Monitor for signs of infections ( Fever, WBC) WBC is trending down BC from 07/21:, E.coli, BC 07/22: E.coli, 07/23: E.coli Will check BC x 2 sets today. Urine cx 07/21: E.coli ENDOCRINOLOGY SSI to maintain Euglycemia HEMATOLOGY Anemia Thrombocytopenia likley 2nd sepsis Monitor CBC, coags, Fibrinogen level : 705 PROPHYLAXIS DVT prevention with SCD, not on DVT prophylaxis due to thrombocytopenia GI protection: Pepcid LINES Peripheral IVs Level 3 Problem Qualifiers (1) Leukocytosis: Qualified Codes: D72.829 - Elevated white blood cell count, unspecified Chas Beckwith MD Jul 25, 2017 07:11
[2017-07-25] MEDS ORDERED: POTASSIUM PHOSPHATE INJ 30 MMOL in SODIUM CHLOR 0.9% 250 ML INJ 250 ML IV PRN (07:15)
[2017-07-25] MEDS ORDERED: MAGNESIUM OXIDE 400 MG TAB PO PRN (07:15)
[2017-07-25] MEDS ORDERED: POTASSIUM PHOSPHATE MONOBASIC 500 MG TAB PO/TUBE PRN (07:15)
[2017-07-25] MEDS ORDERED: POTASSIUM CHLOR 20 MEQ PREMIX 100 ML IV PRN ×2 (07:15)
[2017-07-25] MEDS ORDERED: MAGNESIUM SULFATE INJ 2 GM in SODIUM CHLORIDE 0.9% INJ 96 ML IV PRN (07:15)
[2017-07-25] MEDS ORDERED: MAGNESIUM SULFATE INJ 4 GM in SODIUM CHLORIDE 0.9% INJ 92 ML IV PRN (07:15)
[2017-07-25] MEDS ORDERED: POTASSIUM PHOSPHATE MONOBASIC 500 MG TAB PO PRN (07:15)
[2017-07-25] MEDS ORDERED: RESP: ALBUTEROL 2.5 MG/IPRATROPIUM 0.5 MG NEB (PRN) NEB (07:15)
[2017-07-25] MEDS ORDERED: SODIUM PHOSPHATE INJ 30 MMOL in SODIUM CHLOR 0.9% 250 ML INJ 240 ML IV PRN (07:15)
[2017-07-25] MEDS ORDERED: POTASSIUM CHLOR 40 MEQ PREMIX 100 ML IV PRN ×2 (07:15)
[2017-07-25 08:10] LABS: PHOSPHORUS 2.1 MG/DL (2.5-4.9)
[2017-07-25] MEDS: POTASSIUM CHLORIDE 25 MEQ EFFERVESCENT TAB PO PRN ×2 (08:30→21:14)
[2017-07-25] MEDS: SODIUM CHLORIDE 0.9% FLUSH 10 ML FLUSH IV FLUSH SCH ×2 (08:30→21:15)
[2017-07-25] MEDS: DOCUSATE SODIUM 50 MG/SENNA 8.6 MG TAB PO SCH ×2 (08:31→21:00)
--- NOTE | 2017-07-25 09:42 | RADRPT ---
EXAM DATE/TIME: 07/25/2017 07:54 [facility] COMPARISON: CHEST SINGLE AP, July 21, 2017, 11:56. INDICATIONS : Shortness of breath. Indication reads infiltrates. MEDICAL HISTORY : Congestive heart failure. SURGICAL HISTORY : Tonsillectomy. ENCOUNTER: Subsequent ACUITY: 4 - 6 days PAIN SCORE: 0/10 LOCATION: Bilateral chest FINDINGS: Heart size is enlarged. Basilar airspace consolidation and small effusions. No pneumothorax. CONCLUSION: 1. Increase in basilar airspace consolidation and small effusions since comparison from July 21. H eart size is enlarged. Differential diagnosis includes mild congestive heart failure. Hong Ma MD on July 25, 2017 at 9:35 Board Certified Radiologist. This report was verified electronically.
[2017-07-25] MEDS ORDERED: FUROSEMIDE 40 MG/4 ML VIAL IV PUSH ONE (10:45)
[2017-07-25] MEDS: RESP: ALBUTEROL 2.5 MG/IPRATROPIUM 0.5 MG NEB (SCH) NEB ×3 (10:50→20:55)
--- NOTE | 2017-07-25 13:49 | HHI.IDPN ---
Subjective Subjective Remarks feels good but repeatn blood clx are positive again 2/2 denies any pain BP is stable takes po and feels well UOP good Antibiotics zosyn Allergies: Coded Allergies: ciprofloxacin (Verified Allergy, Unknown, 07/21/17) Objective . Vital Signs Date Time Temp Pulse Resp B/P (MAP) Pulse Ox O2 Delivery O2 Flow Rate FiO2 07/25/17 10:51 94 Nasal Cannula 2.00 07/25/17 08:00 97.2 64 20 129/68 (88) 99 07/25/17 08:00 64 07/25/17 06:00 68 07/25/17 04:00 71 07/25/17 04:00 99.2 71 25 120/59 (79) 92 07/25/17 02:00 71 07/25/17 00:00 75 07/25/17 00:00 99.4 75 29 130/58 (82) 93 07/24/17 22:00 69 07/24/17 20:18 92 Nasal Cannula 2.00 07/24/17 20:00 72 07/24/17 20:00 98.9 72 22 137/60 (85) 92 07/24/17 18:00 90 07/24/17 16:00 87 07/24/17 16:00 98.9 89 23 139/81 (100) 92 07/24/17 14:00 87 . Laboratory Tests Test 07/24/17 08:18 07/25/17 04:10 White Blood Count 14.2 TH/MM3 9.8 TH/MM3 Red Blood Count 2.90 MIL/MM3 2.65 MIL/MM3 Hemoglobin 9.9 GM/DL 9.2 GM/DL Hematocrit 29.8 % 27.2 % Mean Corpuscular Volume 102.8 FL 102.7 FL Mean Corpuscular Hemoglobin 34.0 PG 34.6 PG Mean Corpuscular Hemoglobin Concent 33.1 % 33.7 % Red Cell Distribution Width 14.0 % 13.9 % Platelet Count 54 TH/MM3 60 TH/MM3 Mean Platelet Volume 10.7 FL 11.0 FL Neutrophils (%) (Auto) 89.7 % 78.6 % Lymphocytes (%) (Auto) 3.7 % 6.7 % Monocytes (%) (Auto) 6.4 % 13.9 % Eosinophils (%) (Auto) 0.1 % 0.6 % Basophils (%) (Auto) 0.1 % 0.2 % Neutrophils # (Auto) 12.7 TH/MM3 7.7 TH/MM3 Lymphocytes # (Auto) 0.5 TH/MM3 0.7 TH/MM3 Monocytes # (Auto) 0.9 TH/MM3 1.4 TH/MM3 Eosinophils # (Auto) 0.0 TH/MM3 0.1 TH/MM3 Basophils # (Auto) 0.0 TH/MM3 0.0 TH/MM3 CBC Comment AUTO DIFF AUTO DIFF Differential Total Cells Counted 100 Neutrophils % (Manual) 86 % Band Neutrophils % 8 % Lymphocytes % 2 % Monocytes % 4 % Neutrophils # (Manual) 13.3 TH/MM3 Differential Comment FINAL DIFF MANUAL AUTO DIFF CONFIRMED Platelet Estimate LOW LOW Platelet Morphology Comment NORMAL NORMAL Tear Drop Cells 1+ Ovalocytes 1+ Laboratory Tests Test 07/24/17 08:18 07/25/17 04:10 Blood Urea Nitrogen 34 MG/DL 31 MG/DL Creatinine 1.26 MG/DL 1.12 MG/DL Random Glucose 94 MG/DL 82 MG/DL Total Protein 5.0 GM/DL 4.6 GM/DL Albumin 2.1 GM/DL 1.8 GM/DL Calcium Level 7.7 MG/DL 7.3 MG/DL Phosphorus Level 1.7 MG/DL 2.1 MG/DL Magnesium Level 1.9 MG/DL Alkaline Phosphatase 165 U/L 196 U/L Aspartate Amino Transf (AST/SGOT) 37 U/L 27 U/L Alanine Aminotransferase (ALT/SGPT) 38 U/L 31 U/L Total Bilirubin 1.5 MG/DL 1.5 MG/DL Sodium Level 143 MEQ/L 141 MEQ/L Potassium Level 3.8 MEQ/L 3.3 MEQ/L Chloride Level 112 MEQ/L 109 MEQ/L Carbon Dioxide Level 24.3 MEQ/L 23.7 MEQ/L Anion Gap 7 MEQ/L 8 MEQ/L Estimat Glomerular Filtration Rate 41 ML/MIN 47 ML/MIN Protein Corrected Calcium 8.7 MG/DL Microbiology Date/Time Source Procedure Growth Status 07/23/17 15:18 Blood Peripheral Aerobic Blood Culture - Final Escherichia Coli Resulted 07/23/17 15:18 Blood Peripheral Anaerobic Blood Culture - Preliminary NO GROWTH IN 2 DAYS Resulted 07/23/17 15:10 Blood Peripheral Aerobic Blood Culture - Final Escherichia Coli Resulted 07/23/17 15:10 Blood Peripheral Anaerobic Blood Culture - Preliminary NO GROWTH IN 2 DAYS Resulted Imaging Last Impressions Chest X-Ray 07/25/17 0000 Signed Impressions: Service Date/Time: Tuesday, July 25, 2017 07:54 - CONCLUSION: 1. Increase in basilar airspace consolidation and small effusions since comparison from July 21. Heart size is enlarged. Differential diagnosis includes mild congestive heart failure. Hong Ma MD Gall Bladder Ultrasound 07/21/17 1812 Signed Impressions: Service Date/Time: Friday, July 21, 2017 20:50 - CONCLUSION: 1. Cholelithiasis without sonographic evidence to suggest acute cholecystitis. Luis Fernando Torres Jr., MD Abdomen/Pelvis CT 07/21/17 0000 Signed Impressions: Service Date/Time: Friday, July 21, 2017 13:28 - CONCLUSION: 8 x 5 mm calculus left ureter level of L4 with secondary obstructive uropathy. Gallstones. Uncomplicated diverticuli of the colon. Degenerative changes of the lumbar spine. Edward Sims MD Physical Exam CONSTITUTIONAL/GENERAL: This is an adequately nourished patient, in no apparent distress. TUBES/LINES/DRAINS: SKIN: No jaundice, rashes, or lesions. Skin temperature appropriate. Not diaphoretic. CARDIOVASCULAR: Regular rate and rhythm without murmurs, gallops, or rubs. No JVD. Peripheral pulses symmetric. RESPIRATORY/CHEST: Symmetric, unlabored respirations. Clear to auscultation. Breath sounds equal bilaterally. No wheezes, rales, or rhonchi. GASTROINTESTINAL: Abdomen soft, non-tender, nondistended. GENITOURINARY: Without palpable bladder distension. MUSCULOSKELETAL: Extremities without clubbing, cyanosis, or edema. NEUROLOGICAL: Awake and alert. Motor and sensory grossly within normal limits. Follows commands. Clear speech. Moves all extremities. PSYCHIATRIC: No obvious anxiety/depression. no apparent hallucinations or other psychotic thought process. Assessment & Plan Remarks Assessment and Plan Assessment and Plan Complicated bacteremic UTI 2/2 E.coli in the settings of obstructive uropathy 2 /2 kidney stone - persistent high grade bacteremia despite appropriate coverage Sp L ureter stent placement ARF: improving Leukocytpsis Persistent bacteremia dc zosyn start CFTX repeat BC to document clearance US kidneys Sakshi Schmitz MD Jul 25, 2017 13:49
--- NOTE | 2017-07-25 16:47 | RADRPT ---
EXAM DATE/TIME: 07/25/2017 14:43 [facility] COMPARISON: No previous studies available for comparison. INDICATIONS : Persistent Infection. MEDICAL HISTORY : Congestive heart failure. Hypercholesterolemia. Anticoagulant therapy. Kidney stones. Arthritis. SURGICAL HISTORY : Tonsillectomy. Varcose vains. Carpel tunnel release. Left ureter kidney stone removal. ENCOUNTER: Initial ACUITY: 1 day PAIN SCORE: 0/10 LOCATION: Bilateral flank MEASUREMENTS: RIGHT KIDNEY: 11.9 x 4.6 x 5.2 cm LEFT KIDNEY: 11.6 x 4.4 x 6.1 cm FINDINGS: Mild hydronephrosis left kidney. Bladder present with probable distal stent present. Debris in the bl adder. Post void residuals is large as 483 cc. Kidney is normal in size. CONCLUSION: 1. Apparent ureteral stent in the bladder. Bladder debris. Large post void residual. Hong Ma MD on July 25, 2017 at 16:42 Board Certified Radiologist. This report was verified electronically.
--- NOTE | 2017-07-25 17:23 | EKG ---
Date Performed: 07/25/2017 Time Performed: 07:00:54 PTAGE: 82 years EKG: Probable atrial fibrillation with PVC(s) Left axis deviation Left bundle branch block Possi ble inferior infarct - age undetermined Abnormal ECG NO PREVIOUS TRACING DOCTOR: Ender Madrigal Interpretating Date/Time 07/25/2017 17:20:14
[2017-07-25] MEDS: cefTRIAXone INJ 2,000 MG in SODIUM CHLORIDE 0.9% INJ 100 ML IV SCH (17:27)
[2017-07-25] MEDS: FAMOTIDINE 20 MG TAB PO SCH (21:14)
[2017-07-26] VITALS (21 sets, daily range): BP systolic 117–133; BP diastolic 56–84; PULSE 70–94; RESP 20–32; TEMP 98.1–100; O2SAT 91–96
[2017-07-26] MEDS: INSULIN NovoLIN REGULAR SUPPLEMENTAL SCALE SQ SCH ×6 (01:00→21:00)
[2017-07-26 02:20] LABS: HEMATOCRIT 26.5 % (35.0-46.0); MEAN CELL VOLUME 101.5 FL (80.0-100.0); MEAN CORPUSCULAR HEMOGLOBIN 34.6 PG (27.0-34.0); MEAN CORPUSCULAR HGB CONC 34.1 % (32.0-36.0); MEAN PLATELET VOLUME 10.2 FL (7.0-11.0); PLATELET COUNT 87 TH/MM3 (150-450); RED BLOOD COUNT 2.61 MIL/MM3 (4.00-5.30); RED CELL DISTRIBUTION WIDTH 13.7 % (11.6-17.2); WHITE BLOOD COUNT 10.2 TH/MM3 (4.0-11.0)
[2017-07-26 03:06] LABS: BICARBONATE 24.8 MEQ/L (21.0-32.0); CALCIUM 7.1 MG/DL (8.5-10.1); CREATININE 0.91 MG/DL (0.50-1.00); MAGNESIUM 1.6 MG/DL (1.5-2.5); PHOSPHORUS 2.1 MG/DL (2.5-4.9)
[2017-07-26 03:21] LABS: CALCIUM-PROTEIN CORRECTED 8.2 MG/DL (8.5-10.1)
[2017-07-26 03:36] LABS: BANDS 5 % (0-6); LYMPHOCYTES 6 % (9-44); METAMYELOCYTES 1 % (0-1); MONOCYTES 5 % (0-8); PLASMA CELLS 1 % (0-0); POLYS (SEG NEUTROPHILS) 82 % (16-70)
[2017-07-26 03:38] LABS: DOHLE BODIES PRESENT (NONE SEEN); OVALOCYTES 1+ (NORMAL)
[2017-07-26] MEDS: CHLORHEXIDINE GLUCONATE 2 % 1 PACK (2 CLOTHS) TOP SCH (04:00)
[2017-07-26] MEDS: RESP: ALBUTEROL 2.5 MG/IPRATROPIUM 0.5 MG NEB (SCH) NEB ×4 (04:00→20:54)
[2017-07-26] MEDS: DOCUSATE SODIUM 50 MG/SENNA 8.6 MG TAB PO SCH ×2 (09:00→21:00)
[2017-07-26] MEDS: SODIUM CHLORIDE 0.9% FLUSH 10 ML FLUSH IV FLUSH SCH ×2 (14:15→21:32)
[2017-07-26] MEDS: cefTRIAXone INJ 2,000 MG in SODIUM CHLORIDE 0.9% INJ 100 ML IV SCH (14:15)
[2017-07-26] MEDS: FAMOTIDINE 20 MG TAB PO SCH (21:29)
[2017-07-26] MEDS ORDERED: METHOTREXATE 2.5 MG TAB PO SCH (22:45)
[2017-07-26] MEDS ORDERED: ALENDRONATE SODIUM 70 MG TAB PO SCH (22:45)
[2017-07-26] MEDS ORDERED: RESP: ALBUTEROL 2.5 MG/3 ML NEB (PRN) NEB (22:45)
[2017-07-26] MEDS ORDERED: ACETAMINOPHEN 325 MG TAB PO PRN (22:45)
--- NOTE | 2017-07-26 22:48 | HHI.CCPN ---
Subjective Remarks/Hospital Course This is a 82-year-old female with known history of rheumatoid arthritis, congestive heart failure, hypotension who presented to hospital because of fever and chills. Patient states that she is in normal state of health when she flew down here from [place] yesterday. While she was on a plane she developed fever and rigors. Patient states when she was walking yesterday she was very cold because of the eardrops at the airport. He stated a hotel last night and she did not improve and she continued to have chills and rigors. Because of that reason she came to the ER for evaluation. Patient had workup done emergency department found to have multiple abnormal findings with significant hypotension, however patient states that she has low blood pressure on a regular basis and this was diagnosed in April in [place]. Patient did have acute renal failure and after CT scan was performed to indicated patient had obstructed uropathy of the left ureter with multiple organ failure to include hypotension, liver enzyme elevation, renal failure. Patient was given minimal IV bolus in the emergency department, will give further IV fluid for blood pressure management. However patient does have history of hypotension which this could be her normal blood pressure. Patient was found to have elevated troponin with left bundle branch block on EKG. Cardiology was consulted for recommendations. Patient recommended ICU admission for critical care management. Patient be transferred to [facility] for continued care. 07/[address] abdomen/pelvis yesterday which showed obstructive uropathy 2nd left ureter stone s/p left ureteral stent placement last night. She is on Neosyn 40 mics. T:100.7 07/23 No events overnight. Awake and alert. Off Neosyn. Tmax 102. 07/24 Patient is lying in bed in [facility]. T:100.2 last night. 07/25 No events overnight. Renal function is improving with Cr: 1.12, WBC is trending down. Subjective 07/26: Afebrile. Resting in bed in no acute distress. On 1 L nasal cannula. No current complaints. Tolerating diet. Objective Vital Signs Date Time Temp Pulse Resp B/P (MAP) Pulse Ox O2 Delivery O2 Flow Rate FiO2 07/26/17 20:54 95 Nasal Cannula 2.00 07/26/17 18:00 82 07/26/17 16:00 98.7 31 125/58 (80) Intake and Output 07/26/17 07/26/17 07/27/17 08:00 16:00 00:00 Intake Total 100 ml 700 ml Output Total 975 ml 500 ml Balance -975 ml 100 ml 200 ml Result Diagram: 07/26/17 0206 07/26/17 0206 Other Results Microbiology Date/Time Source Procedure Growth Status 07/25/17 14:44 Blood Peripheral Aerobic Blood Culture - Preliminary NO GROWTH IN 1 DAY Resulted 07/25/17 14:44 Blood Peripheral Anaerobic Blood Culture - Preliminary NO GROWTH IN 1 DAY Resulted 07/21/17 11:50 Nasal Aspirate Influenza Types A,B Antigen (JAVID) - Final NEGATIVE FOR FLU A AND B ANTIGEN.... Complete 07/21/17 12:24 Urine Clean Catch Urine Culture - Final Escherichia Coli Complete Imaging Last Impressions Renal Ultrasound 07/25/17 0000 Signed Impressions: Service Date/Time: Tuesday, July 25, 2017 14:43 - CONCLUSION: 1. Apparent ureteral stent in the bladder. Bladder debris. Large post void residual. Hong Ma MD Chest X-Ray 07/25/17 0000 Signed Impressions: Service Date/Time: Tuesday, July 25, 2017 07:54 - CONCLUSION: 1. Increase in basilar airspace consolidation and small effusions since comparison from July 21. Heart size is enlarged. Differential diagnosis includes mild congestive heart failure. Hong Ma MD Gall Bladder Ultrasound 07/21/171811 Signed Impressions: Service Date/Time: Friday, July 21, 2017 20:50 - CONCLUSION: 1. Cholelithiasis without sonographic evidence to suggest acute cholecystitis. Luis Fernando Torres Jr., MD Abdomen/Pelvis CT 07/21/17 0000 Signed Impressions: Service Date/Time: Friday, July 21, 2017 13:28 - CONCLUSION: 8 x 5 mm calculus left ureter level of L4 with secondary obstructive uropathy. Gallstones. Uncomplicated diverticuli of the colon. Degenerative changes of the lumbar spine. Edward Sims MD Objective Remarks GENERAL: 82-year-old female resting in bed in no acute distress SKIN: Warm and dry. No rash HEAD: Normocephalic. EYES: Pupils equally round and reactive about 2 mm bilaterally. NECK: Supple, trachea midline. No JVD or lymphadenopathy. CARDIOVASCULAR: Regular rate and rhythm S1, S2 no S4. Without murmurs, gallops , or rubs. RESPIRATORY: Breath sounds equal bilaterally. No accessory muscle use. GASTROINTESTINAL: Abdomen soft, non-tender, nondistended. Hypoactive bowel sounds appreciated MUSCULOSKELETAL: No significant peripheral edema. Neuro: Awake and alert Urinary Catheter: Yes Assessment to: Continue Kulkarni insert reason: Prolonged Immobilization Vascular Central Line Catheter: No Assessment to: Continue A/P Assessment and Plan NEUROLOGY/PSYCH Monitor neuro status, awake and alert Acetaminophen 650 mg every 6 hours. PULMONOLOGY Continue with oxygen maintain O2 sats greater than 92% Bronchodilators, check CXR CARDIOLOGY Afib currently normal sinus rhythm History of low blood pressure History of CHF - infection fraction currently 55-60% History of hypertension History dyslipidemia Non-ST elevated myocardial infarctions - Dr. Carranza no further Left bundle branch block Moderate to severe pulmonary hypertension with PAP greater than 70 - cardiology recommended outpatient workup with primary care physician Monitor HR and BP keep MAP>65mmHg Lactic acid cleared-1.9 Echo showed EF 55-60%, Grade 1 diastolic dysfunction, severe pulmonary HTN, PAP> 70mmHg Cards signed off- Dr. Carranza Holding home medication lisinopril 1.25 mg by mouth daily Continue aspirin 81 mg by mouth daily Tomorrow 07/27 we'll resume furosemide altering doses at 20/40 mg daily with acute kidney injury. Along with potassium supplementation 20 mEq daily GASTROENTEROLOGY Elevated transaminases Cholelithiasis Monitor LFTs's (trending down) US liver: Cholelithiasis without sonographic evidence to suggest acute cholecystitis On PO diet Pantoprazole for GI prophylaxis Docusate sodium/senna 1 tablet twice a day for bowel regimen Renal/GENITOURINARY Obstructive uropathy with renal stone in left ureter Acute renal failure s/p Left ureter stent placement 07/21 Monitor renal function, I/O's, avoid nephrotoxins, electrolytes replacement per protocol. Will need K, Phos replacement today Renal function improving 07/25 diuresed with furosemide 40 mill grams IV 1 INFECTIOUS DISEASE s/p Septic shock Escherichia coli bacteremia Leukocytosis with bandemia Lactic acidosis. Urinary tract infection Continue with ceftriaxone 2 g IV daily, ID is following Monitor for signs of infections ( Fever, WBC) WBC is trending down BC from 07/21:, E.coli, BC 07/22: E.coli, 07/23: E.coli Blood cultures 07/25 no growth to date Urine cx 07/21: E.coli ENDOCRINOLOGY SSI to maintain Euglycemia HEMATOLOGY Anemia/macrocytic Thrombocytopenia [facility] 2nd sepsis Monitor CBC, coags, Fibrinogen level : 705 RHEUM: Rheumatoid arthritis Methotrexate 12.5 milligrams weekly and she normally takes Sundays.. Continue hydroxychloroquine 200 mg daily PROPHYLAXIS DVT prevention with SCD, heparin subcutaneous GI protection: Famotidine LINES Peripheral IVs Level II follow-up. Patient is stable from a critical care medicine standpoint. Assign care to hospitalist in a.m. 07/27. Transfer from ICU. Moy Brown MD Jul 26, 2017 22:48
[2017-07-26] MEDS ORDERED: SODIUM PHOSPHATE INJ 15 MMOL in SODIUM CHLORIDE 0.9% INJ 150 ML IV ONE (23:00)
[2017-07-27] VITALS (17 sets, daily range): BP systolic 110–135; BP diastolic 59–79; PULSE 66–83; RESP 18–26; TEMP 98–100.4; O2SAT 94–99
[2017-07-27] MEDS: MAGNESIUM SULFATE 1 GM PREMIX 100 ML IV SCH ×2 (00:33→03:43)
[2017-07-27] MEDS: CHLORHEXIDINE GLUCONATE 2 % 1 PACK (2 CLOTHS) TOP SCH (04:00)
[2017-07-27] MEDS: RESP: ALBUTEROL 2.5 MG/IPRATROPIUM 0.5 MG NEB (SCH) NEB ×3 (04:07→17:17)
[2017-07-27 05:20] LABS: HEMATOCRIT 26.2 % (35.0-46.0); HEMOGLOBIN 9.1 GM/DL (11.6-15.3); MEAN CELL VOLUME 101.4 FL (80.0-100.0); MEAN CORPUSCULAR HEMOGLOBIN 35.1 PG (27.0-34.0); MEAN CORPUSCULAR HGB CONC 34.7 % (32.0-36.0); MEAN PLATELET VOLUME 9.9 FL (7.0-11.0); PLATELET COUNT 122 TH/MM3 (150-450); RED BLOOD COUNT 2.59 MIL/MM3 (4.00-5.30); RED CELL DISTRIBUTION WIDTH 13.7 % (11.6-17.2)
[2017-07-27 05:47] LABS: BICARBONATE 24.4 MEQ/L (21.0-32.0); CALCIUM 7.3 MG/DL (8.5-10.1); CREATININE 0.82 MG/DL (0.50-1.00); MAGNESIUM 2.5 MG/DL (1.5-2.5); PHOSPHORUS 2.5 MG/DL (2.5-4.9)
[2017-07-27 06:08] LABS: CALCIUM-PROTEIN CORRECTED 8.3 MG/DL (8.5-10.1); TOTAL PROTEIN 5.3 GM/DL (6.4-8.2)
[2017-07-27] MEDS: INSULIN NovoLIN REGULAR SUPPLEMENTAL SCALE SQ SCH ×3 (08:00→17:00)
[2017-07-27] MEDS ORDERED: HYDROXYCHLOROQUINE SULFATE 200 MG TAB PO SCH (09:00)
[2017-07-27] MEDS: HEPARIN SODIUM - SQ 10,000 UNITS/ML VIAL SQ SCH ×2 (09:00→21:41)
[2017-07-27] MEDS ORDERED: FLUTICASONE PROPIONATE 50 MCG/ACT 16 GM NASAL SPRAY EACH NARE SCH (09:00)
[2017-07-27] MEDS: LEVOCETIRIZINE 5 MG PO SCH (09:00)
[2017-07-27] MEDS: FUROSEMIDE 20 MG TAB PO SCH (09:25)
[2017-07-27] MEDS: CHOLECALCIFEROL (VIT D3) 1000 UNIT TAB PO SCH (09:25)
[2017-07-27] MEDS: POTASSIUM CHLORIDE 20 MEQ CONTROLLED RELEASE TAB PO SCH (09:25)
[2017-07-27] MEDS: ASPIRIN EC 81 MG TABEC PO SCH (09:25)
[2017-07-27] MEDS: FOLIC ACID 1 MG TAB PO SCH ×2 (09:25→21:37)
[2017-07-27] MEDS: DOCUSATE SODIUM 50 MG/SENNA 8.6 MG TAB PO SCH ×2 (09:26→21:00)
[2017-07-27] MEDS: CALCIUM/VITAMIN D 250 MG/125 U TAB PO SCH (09:26)
[2017-07-27] MEDS: SODIUM CHLORIDE 0.9% FLUSH 10 ML FLUSH IV FLUSH SCH ×2 (09:27→21:41)
--- NOTE | 2017-07-27 12:41 | HHI.CCPN ---
Subjective Remarks/Hospital Course This is a 82-year-old female with known history of rheumatoid arthritis, congestive heart failure, hypotension who presented to hospital because of fever and chills. Patient states that she is in normal state of health when she flew down here from [place] yesterday. While she was on a plane she developed fever and rigors. Patient states when she was walking yesterday she was very cold because of the eardrops at the airport. He stated a hotel last night and she did not improve and she continued to have chills and rigors. Because of that reason she came to the ER for evaluation. Patient had workup done emergency department found to have multiple abnormal findings with significant hypotension, however patient states that she has low blood pressure on a regular basis and this was diagnosed in April in [place]. Patient did have acute renal failure and after CT scan was performed to indicated patient had obstructed uropathy of the left ureter with multiple organ failure to include hypotension, liver enzyme elevation, renal failure. Patient was given minimal IV bolus in the emergency department, will give further IV fluid for blood pressure management. However patient does have history of hypotension which this could be her normal blood pressure. Patient was found to have elevated troponin with left bundle branch block on EKG. Cardiology was consulted for recommendations. Patient recommended ICU admission for critical care management. Patient be transferred to [facility] for continued care. 07/[address] abdomen/pelvis yesterday which showed obstructive uropathy 2nd left ureter stone s/p left ureteral stent placement last night. She is on Neosyn 40 mics. T:100.7 07/23 No events overnight. Awake and alert. Off Neosyn. Tmax 102. 07/24 Patient is lying in bed in [facility]. T:100.2 last night. 07/25 No events overnight. Renal function is improving with Cr: 1.12, WBC is trending down. 07/26: Afebrile. Resting in bed in no acute distress. On 1 L nasal cannula. No current complaints. Tolerating diet. Subjective 07/27: Tmax 100.4. Currently on 2 L nasal cannula. Saturations 94%. Still weak but able to ambulate within the room. Discussed with at bedside. Plan to leave back to [place] next . Objective Vital Signs Date Time Temp Pulse Resp B/P (MAP) Pulse Ox O2 Delivery O2 Flow Rate FiO2 07/27/17 06:00 77 07/27/17 04:10 94 Nasal Cannula 2.00 07/27/17 04:00 100.4 22 135/64 (87) Intake and Output 07/27/17 07/27/17 07/28/17 08:00 16:00 00:00 Intake Total 899 ml Output Total 200 ml Balance 699 ml Result Diagram: 07/27/17 0316 07/27/17 0316 Other Results Microbiology Date/Time Source Procedure Growth Status 07/25/17 14:44 Blood Peripheral Aerobic Blood Culture - Preliminary NO GROWTH IN 2 DAYS Resulted 07/25/17 14:44 Blood Peripheral Anaerobic Blood Culture - Preliminary NO GROWTH IN 2 DAYS Resulted 07/21/17 11:50 Nasal Aspirate Influenza Types A,B Antigen (JAVID) - Final NEGATIVE FOR FLU A AND B ANTIGEN.... Complete 07/21/17 12:24 Urine Clean Catch Urine Culture - Final Escherichia Coli Complete Imaging Last Impressions Renal Ultrasound 07/25/17 0000 Signed Impressions: Service Date/Time: Tuesday, July 25, 2017 14:43 - CONCLUSION: 1. Apparent ureteral stent in the bladder. Bladder debris. Large post void residual. Hong Ma MD Chest X-Ray 07/25/17 0000 Signed Impressions: Service Date/Time: Tuesday, July 25, 2017 07:54 - CONCLUSION: 1. Increase in basilar airspace consolidation and small effusions since comparison from July 21. Heart size is enlarged. Differential diagnosis includes mild congestive heart failure. Hong Ma MD Gall Bladder Ultrasound 07/21/17 1812 Signed Impressions: Service Date/Time: Friday, July 21, 2017 20:50 - CONCLUSION: 1. Cholelithiasis without sonographic evidence to suggest acute cholecystitis. Luis Fernando Torres Jr., MD Abdomen/Pelvis CT 07/21/17 0000 Signed Impressions: Service Date/Time: Friday, July 21, 2017 13:28 - CONCLUSION: 8 x 5 mm calculus left ureter level of L4 with secondary obstructive uropathy. Gallstones. Uncomplicated diverticuli of the colon. Degenerative changes of the lumbar spine. Edward Sims MD Objective Remarks GENERAL: 82-year-old female resting in chair in no acute distress SKIN: Warm and dry. No rash HEAD: Normocephalic. EYES: Pupils equally round and reactive about 2 mm bilaterally. NECK: Supple, trachea midline. No JVD or lymphadenopathy. CARDIOVASCULAR: Regular rate and rhythm S1, S2 no S4. Without murmurs, gallops , or rubs. RESPIRATORY: Breath sounds equal bilaterally. No accessory muscle use. GASTROINTESTINAL: Abdomen soft, non-tender, nondistended. Hypoactive bowel sounds appreciated MUSCULOSKELETAL: No significant peripheral edema. Neuro: Awake and alert. Strength appears equal symmetric. Normal sensation Urinary Catheter: Yes Assessment to: Continue Kulkarni insert reason: Prolonged Immobilization Vascular Central Line Catheter: No Assessment to: Continue A/P Assessment and Plan NEUROLOGY/PSYCH Monitor neuro status, awake and alert Acetaminophen 650 mg every 6 hours. PULMONOLOGY Continue with oxygen maintain O2 sats greater than 92% Bronchodilators, check CXR CARDIOLOGY Afib currently normal sinus rhythm History of low blood pressure History of CHF - infection fraction currently 55-60% History of hypertension History dyslipidemia Non-ST elevated myocardial infarctions - Dr. Carranza no further Left bundle branch block Moderate to severe pulmonary hypertension with PAP greater than 70 - cardiology recommended outpatient workup with primary care physician Monitor HR and BP keep MAP>65mmHg Lactic acid cleared-1.9 Echo showed EF 55-60%, Grade 1 diastolic dysfunction, severe pulmonary HTN, PAP> 70mmHg Cards signed off- Dr. Carranza Holding home medication lisinopril 1.25 mg by mouth daily Continue aspirin 81 mg by mouth daily Tomorrow 07/27 we'll resume furosemide altering doses at 20/40 mg daily with acute kidney injury. Along with potassium supplementation 20 mEq daily GASTROENTEROLOGY Elevated transaminases Cholelithiasis Monitor LFTs's (trending down) US liver: Cholelithiasis without sonographic evidence to suggest acute cholecystitis On PO diet Pantoprazole for GI prophylaxis Docusate sodium/senna 1 tablet twice a day for bowel regimen Renal/GENITOURINARY Obstructive uropathy with renal stone in left ureter Acute renal failure s/p Left ureter stent placement 07/21 Monitor renal function, I/O's, avoid nephrotoxins, electrolytes replacement per protocol. Will need K, Phos replacement today Renal function improving 07/25 diuresed with furosemide 40 mill grams IV 1 INFECTIOUS DISEASE s/p Septic shock Escherichia coli bacteremia Leukocytosis with bandemia Lactic acidosis. Urinary tract infection Continue with ceftriaxone 2 g IV daily, ID is following Monitor for signs of infections ( Fever, WBC) WBC is trending down BC from 07/21:, E.coli, BC 07/22: E.coli, 07/23: E.coli Blood cultures 07/25 no growth to date Urine cx 07/21: E.coli ENDOCRINOLOGY SSI to maintain Euglycemia HEMATOLOGY Anemia/macrocytic Thrombocytopenia [facility] 2nd sepsis Monitor CBC, coags, Fibrinogen level : 705 RHEUM: Rheumatoid arthritis Methotrexate 12.5 milligrams weekly and she normally takes Sundays.. Continue hydroxychloroquine 200 mg by mouth at night PROPHYLAXIS DVT prevention with SCD, heparin subcutaneous GI protection: Famotidine LINES Peripheral IVs Level II follow-up. Patient is stable from a critical care medicine standpoint. Assign care to hospitalist in a.m. 07/28. Transfer from ICU. Moy Brown MD Jul 27, 2017 12:41
[2017-07-27] MEDS: cefTRIAXone INJ 2,000 MG in SODIUM CHLORIDE 0.9% INJ 100 ML IV SCH (17:30)
[2017-07-27] MEDS: HYDROXYCHLOROQUINE SULFATE 200 MG TAB PO SCH (21:35)
[2017-07-27] MEDS: FAMOTIDINE 20 MG TAB PO SCH (21:40)
[2017-07-28] VITALS (13 sets, daily range): BP systolic 105–130; BP diastolic 55–75; PULSE 66–86; RESP 16–18; TEMP 97.4–99.1; O2SAT 94–100
[2017-07-28] MEDS: CHLORHEXIDINE GLUCONATE 2 % 1 PACK (2 CLOTHS) TOP SCH (03:36)
[2017-07-28] MEDS: RESP: ALBUTEROL 2.5 MG/IPRATROPIUM 0.5 MG NEB (SCH) NEB ×4 (03:44→19:46)
[2017-07-28] MEDS: SODIUM CHLORIDE 0.9% FLUSH 10 ML FLUSH IV FLUSH SCH ×2 (08:10→21:04)
[2017-07-28] MEDS: DOCUSATE SODIUM 50 MG/SENNA 8.6 MG TAB PO SCH ×2 (08:56→21:00)
[2017-07-28] MEDS: CALCIUM/VITAMIN D 250 MG/125 U TAB PO SCH (08:57)
[2017-07-28] MEDS: ASPIRIN EC 81 MG TABEC PO SCH (08:57)
[2017-07-28] MEDS: CHOLECALCIFEROL (VIT D3) 1000 UNIT TAB PO SCH (08:57)
[2017-07-28] MEDS: FOLIC ACID 1 MG TAB PO SCH ×2 (08:57→21:04)
[2017-07-28] MEDS: POTASSIUM CHLORIDE 20 MEQ CONTROLLED RELEASE TAB PO SCH (08:57)
[2017-07-28] MEDS: HEPARIN SODIUM - SQ 10,000 UNITS/ML VIAL SQ SCH ×2 (08:57→21:05)
[2017-07-28] MEDS: LEVOCETIRIZINE 5 MG PO SCH (08:58)
[2017-07-28] MEDS: FLUTICASONE PROPIONATE 50 MCG/ACT 16 GM NASAL SPRAY EACH NARE SCH (08:58)
[2017-07-28] MEDS ORDERED: FUROSEMIDE 40 MG TAB PO SCH (09:00)
--- NOTE | 2017-07-28 09:15 | HHI.PR ---
Subjective Remarks Scheduling Administrator notes: This is a 82-year-old female with known history of rheumatoid arthritis, congestive heart failure, hypotension who presented to hospital because of fever and chills. Patient states that she is in normal state of health when she flew down here from [place] yesterday. While she was on a plane she developed fever and rigors. Patient states when she was walking yesterday she was very cold because of the eardrops at the airport. He stated a hotel last night and she did not improve and she continued to have chills and rigors. Because of that reason she came to the ER for evaluation. Patient had workup done emergency department found to have multiple abnormal findings with significant hypotension, however patient states that she has low blood pressure on a regular basis and this was diagnosed in April in [place]. Patient did have acute renal failure and after CT scan was performed to indicated patient had obstructed uropathy of the left ureter with multiple organ failure to include hypotension, liver enzyme elevation, renal failure. Patient was given minimal IV bolus in the emergency department, will give further IV fluid for blood pressure management. However patient does have history of hypotension which this could be her normal blood pressure. Patient was found to have elevated troponin with left bundle branch block on EKG. Cardiology was consulted for recommendations. Patient recommended ICU admission for critical care management. Patient be transferred to [facility] for continued care. 07/[address] abdomen/pelvis yesterday which showed obstructive uropathy 2nd left ureter stone s/p left ureteral stent placement last night. She is on Neosyn 40 mics. T:100.7 07/23 No events overnight. Awake and alert. Off Neosyn. Tmax 102. 07/24 Patient is lying in bed in [facility]. T:100.2 last night. 07/25 No events overnight. Renal function is improving with Cr: 1.12, WBC is trending down. 07/26: Afebrile. Resting in bed in no acute distress. On 1 L nasal cannula. No current complaints. Tolerating diet. 07/27: Tmax 100.4. Currently on 2 L nasal cannula. Saturations 94%. Still weak but able to ambulate within the room. Discussed with at bedside. Plan to leave back to [place] next . Hospitalist Notes: 07/28: Seen in her bedroom, discussed with her and nurse Miss Baker, as per ID specialist with Complicated Bacteremic UTI secondary to E Coli in the setting of obstructive Uropathy secondary to Kidney stones, Persistent high grade bacteremia despite appropriate coverage , Status post Left ureter stent placement, discontinued Zosyn, started on Ceftriaxone and repeated blood cultures to document clearance. Urology specialist signed off the case. Objective Vital Signs Date Time Temp Pulse Resp B/P (MAP) Pulse Ox O2 Delivery O2 Flow Rate FiO2 07/28/17 08:08 97 07/28/17 08:02 97.4 77 18 105/66 (79) 96 07/28/17 04:07 96 07/28/17 04:00 71 07/28/17 04:00 97.9 75 16 124/60 (81) 100 07/28/17 00:00 66 07/28/17 00:00 99.1 71 18 130/75 (93) 95 07/27/17 20:00 98.2 78 18 126/79 (95) 95 07/27/17 20:00 74 07/27/17 17:00 75 07/27/17 17:00 75 23 126/63 (84) 96 07/27/17 16:00 98.0 66 24 113/64 (80) 97 07/27/17 16:00 66 07/27/17 15:00 72 07/27/17 15:00 72 23 112/59 (76) 97 07/27/17 14:00 71 07/27/17 14:00 71 25 121/60 (80) 99 07/27/17 13:00 79 07/27/17 13:00 79 22 122/59 (80) 97 07/27/17 12:00 70 07/27/17 12:00 98.9 70 26 118/61 (80) 95 07/27/17 11:00 67 26 110/70 (83) 98 07/27/17 11:00 67 07/27/17 10:00 70 07/27/17 10:00 70 26 95 I/O 07/27/17 07/27/17 07/27/17 07/28/17 07/28/17 07/28/17 07:00 15:00 23:00 07:00 15:00 23:00 Intake Total 899 ml 600 ml Output Total 200 ml 800 ml Balance 699 ml 600 ml -800 ml Intake Oral 200 ml 600 ml IV Total 699 ml Output Urine Total 200 ml 800 ml # Voids 2 3 # Bowel Movements 1 2 Result Diagram: 07/27/17 0316 07/27/17 0316 Imaging Last Impressions Renal Ultrasound 07/25/17 0000 Signed Impressions: Service Date/Time: Tuesday, July 25, 2017 14:43 - CONCLUSION: 1. Apparent ureteral stent in the bladder. Bladder debris. Large post void residual. Hong Ma MD Chest X-Ray 07/25/17 0000 Signed Impressions: Service Date/Time: Tuesday, July 25, 2017 07:54 - CONCLUSION: 1. Increase in basilar airspace consolidation and small effusions since comparison from July 21. Heart size is enlarged. Differential diagnosis includes mild congestive heart failure. Hong Ma MD Gall Bladder Ultrasound 07/21/172 Signed Impressions: Service Date/Time: Friday, July 21, 2017 20:50 - CONCLUSION: 1. Cholelithiasis without sonographic evidence to suggest acute cholecystitis. Luis Fernando Torres Jr., MD Abdomen/Pelvis CT 07/21/17 0000 Signed Impressions: Service Date/Time: Friday, July 21, 2017 13:28 - CONCLUSION: 8 x 5 mm calculus left ureter level of L4 with secondary obstructive uropathy. Gallstones. Uncomplicated diverticuli of the colon. Degenerative changes of the lumbar spine. Edward Sims MD Procedures Status post Left ureter stent placement Other Results Laboratory Tests Test 07/21/17 12:24 07/21/17 18:25 07/21/17 19:30 07/22/17 00:36 Urine Collection Type CLEAN CATCH Urine Color YELLOW Urine Turbidity MOD Urine pH 5.0 Urine Specific [place] 1.025 Urine Protein 30 mg/dL Urine Glucose (UA) NEG mg/dL Urine Ketones TRACE mg/dL Urine Occult Blood LARGE Urine Nitrite NEG Urine Bilirubin NEG Urine Leukocyte Esterase MOD Urine RBC 100-200 /hpf Urine WBC 25-49 /hpf Urine WBC Clumps MOD Urine Squamous Epithelial Cells 0-5 /hpf Urine Renal Epithelial Cells > 8 /hpf Urine Bacteria MANY /hpf Urine Yeast (Budding) FEW Microscopic Urinalysis Comment CULTURE INDICATED Urine Collection Time 12:24 Creatine Kinase MB % 2.7 % Nasal Screen MRSA (PCR) MRSA NOT DETECTED Lactic Acid Level 1.9 mmol/L Total Creatine Kinase 187 U/L Creatine Kinase MB 8.6 NG/ML Troponin I 0.91 NG/ML Test 07/22/17 05:38 07/23/17 10:20 07/24/17 08:18 07/25/17 04:10 Toxic Vacuolation PRESENT Prothrombin Time 10.7 SEC Prothromb Time International Ratio 1.1 RATIO Activated Partial Thromboplast Time 29.4 SEC Fibrinogen 705 mg/dL Tear Drop Cells 1+ Neutrophils (%) (Auto) 78.6 % Lymphocytes (%) (Auto) 6.7 % Monocytes (%) (Auto) 13.9 % Eosinophils (%) (Auto) 0.6 % Basophils (%) (Auto) 0.2 % Neutrophils # (Auto) 7.7 TH/MM3 Lymphocytes # (Auto) 0.7 TH/MM3 Monocytes # (Auto) 1.4 TH/MM3 Eosinophils # (Auto) 0.1 TH/MM3 Basophils # (Auto) 0.0 TH/MM3 Blood Urea Nitrogen 31 MG/DL Creatinine 1.12 MG/DL Random Glucose 82 MG/DL Total Protein 4.6 GM/DL Albumin 1.8 GM/DL Calcium Level 7.3 MG/DL Phosphorus Level 2.1 MG/DL Alkaline Phosphatase 196 U/L Aspartate Amino Transf (AST/SGOT) 27 U/L Alanine Aminotransferase (ALT/SGPT) 31 U/L Total Bilirubin 1.5 MG/DL Sodium Level 141 MEQ/L Potassium Level 3.3 MEQ/L Chloride Level 109 MEQ/L Carbon Dioxide Level 23.7 MEQ/L Test 07/26/17 02:06 07/27/17 03:16 CBC Comment AUTO DIFF Differential Total Cells Counted 100 Neutrophils % (Manual) 82 % Band Neutrophils % 5 % Lymphocytes % 6 % Monocytes % 5 % Neutrophils # (Manual) 9.0 TH/MM3 Metamyelocytes 1 % Differential Comment FINAL DIFF MANUAL Plasma Cells 1 % Dohle Bodies PRESENT Platelet Estimate LOW Platelet Morphology Comment NORMAL Ovalocytes 1+ White Blood Count 10.0 TH/MM3 Red Blood Count 2.59 MIL/MM3 Hemoglobin 9.1 GM/DL Hematocrit 26.2 % Mean Corpuscular Volume 101.4 FL Mean Corpuscular Hemoglobin 35.1 PG Mean Corpuscular Hemoglobin Concent 34.7 % Red Cell Distribution Width 13.7 % Platelet Count 122 TH/MM3 Mean Platelet Volume 9.9 FL Blood Urea Nitrogen 23 MG/DL Creatinine 0.82 MG/DL Random Glucose 112 MG/DL Total Protein 5.3 GM/DL Calcium Level 7.3 MG/DL Phosphorus Level 2.5 MG/DL Magnesium Level 2.5 MG/DL Sodium Level 141 MEQ/L Potassium Level 3.9 MEQ/L Chloride Level 108 MEQ/L Carbon Dioxide Level 24.4 MEQ/L Anion Gap 9 MEQ/L Estimat Glomerular Filtration Rate 67 ML/MIN Protein Corrected Calcium 8.3 MG/DL Objective Remarks GENERAL: No acute distress. SKIN: Warm and dry. No rash HEAD: Normocephalic. EYES: Pupils equally round and reactive about 2 mm bilaterally. NECK: Supple, trachea midline. No JVD or lymphadenopathy. CARDIOVASCULAR: Regular rate and rhythm S1, S2 no S4. Without murmurs, gallops , or rubs. RESPIRATORY: Breath sounds equal bilaterally. No accessory muscle use. GASTROINTESTINAL: Abdomen soft, non-tender, nondistended. MUSCULOSKELETAL: No significant peripheral edema. Neuro: Awake and alert. Strength appears equal symmetric. Normal sensation Medications and IVs Current Medications Medications (Trade) Dose Ordered Sig/Bill Route Start Time Stop Time Status Last Admin (NS Flush) 2 ml UNSCH PRN IV FLUSH 07/21/17 15:45 (NS Flush) 2 ml BID IV FLUSH 07/21/17 21:00 07/28/17 08:10 (Zofran Inj) 4 mg Q6H PRN IV PUSH 07/21/17 15:45 (Restoril) 15 mg HS PRN PO 07/21/17 15:45 Miscellaneous Information 1 Q361D XX 07/21/17 15:45 (Chlorhexidine 2% Cloth) Taper DAILY@04 TOP 07/22/17 04:00 07/18/18 03:59 07/26/17 04:00 (Chlorhexidine 2% Cloth) 3 pack UNSCH PRN TOP 07/21/17 15:45 (Summer-Colace) 1 tab BID PO 07/21/17 21:00 07/28/17 08:56 (Milk Of Magnesia Liq) 30 ml Q12H PRN PO 07/21/17 15:45 (Senokot) 17.2 mg Q12H PRN PO 07/21/17 15:45 (Dulcolax Supp) 10 mg DAILY PRN RECTAL 07/21/17 15:45 (Lactulose Liq) 30 ml DAILY PRN PO 07/21/17 15:45 (Pepcid) 20 mg HS PO 07/21/17 21:00 07/27/17 21:40 Phenylephrine HCl 40 mg/Dextrose 500 ml @ 30 mls/hr TITRATE PRN IV 07/21/17 18:15 07/21/17 18:44 (Brethine Inj) 1 mg UNSCH PRN SQ 07/21/17 18:15 (D50w (Vial) Inj) 50 ml UNSCH PRN IV PUSH 07/22/17 08:30 (Glucagon Inj) 1 mg UNSCH PRN OTHER 07/22/17 08:30 (Duoneb Neb) 1 ampule Q6HR NEB NEB 07/25/17 10:00 07/28/17 08:00 Ceftriaxone Sodium 2000 mg/ Sodium Chloride 100 ml @ 200 mls/hr Q24H IV 07/25/17 15:00 07/27/17 17:30 (Ecotrin Ec) 81 mg DAILY PO 07/27/17 09:00 07/28/17 08:57 (Vitamin D3) 1,000 units DAILY PO 07/27/17 09:00 07/28/17 08:57 (Folate) 1 mg BID PO 07/27/17 09:00 07/28/17 08:57 (Oscal-D 250-125) 500 mg DAILY PO 07/27/17 09:00 07/28/17 08:57 Patient Own Medication PT OWN MED: Tablet 5 mg levocetiriz... DAILY PO 07/27/17 09:00 (Tylenol) 650 mg Q6H PRN PO 07/26/17 22:45 (Albuterol Neb) 2.5 mg Q2HR NEB PRN NEB 07/26/17 22:45 (Lasix) 40 mg EVERY OTHER DAY PO 07/28/17 09:00 07/28/17 08:57 (Lasix) 20 mg EVERY OTHER DAY PO 07/27/17 09:00 07/27/17 09:25 (KCl) 20 meq DAILY PO 07/27/17 09:00 07/28/17 08:57 (Heparin Inj) 5,000 units Q12HR SQ 07/27/17 09:00 07/28/17 08:57 (Rheumatrex) 12.5 mg Q7D PO 07/30/17 09:00 (Flonase Warren Spr) 1 spray DAILY EACH NARE 07/28/17 09:00 07/28/17 08:58 (Plaquenil) 200 mg HS PO 07/27/17 21:00 07/27/17 21:35 A/P Assessment and Plan 1. Atrial fibrillation at this time on Normal sinus rhythm, 2. CHF EF 55-60%, Grade 1 Diastolic dysfunction, severe pulmonary hypertension PAP >70 mm Hg. Cardiology signed off the case 3. Hypertension developed Hypotension on hold Lisinopril 1.25 mg daily.but continue Aspirin 81 mg daily. continue Lasix, controlled. 4. Hyperlipidemia 5. Non ST elevation [place], Left Bundle branch block 6. Moderate to severe Pulmonary Hypertension with PAP greater than 70 for outpatient workup with Primary care physician 7. Elevated Transaminases and cholelithiasis, US liver with Cholelithiasis without sonographic evidence to suggest acute cholecystitis was left NPO and GI prophylaxis with PPIs. 8. Obstructive Uropathy with renal stone in left ureter/Acute renal failure. Status post Left Ureter stent placement 07/21, 9. Status post Septic shock, Escherichia Coli bacteremia, leukocytosis with Bandemia, lactic acidosis, UTI, Ceftriaxone 2 grams IV daily ID specialist following, BC 07/21 E coli Blood culture from 07/25 no growth to date, Urine Culture 07/21 E. Coli 10. Thrombocytopenia and Anemia probable secondary to Sepsis 11. RA by history has Methotrexate 12.5 mg weekly on Sundays, continue Hydroxychloroquine 200 mg at night. DVT prevention with SCD, heparin subcutaneous GI protection: Famotidine Discharge Planning Awaiting final recommendations by ID specialist for discharge. Jerod Vick MD Jul 28, 2017 09:15
[2017-07-28] MEDS: cefTRIAXone INJ 2,000 MG in SODIUM CHLORIDE 0.9% INJ 100 ML IV SCH (14:06)
[2017-07-28] MEDS: HYDROXYCHLOROQUINE SULFATE 200 MG TAB PO SCH (21:04)
[2017-07-28] MEDS: FAMOTIDINE 20 MG TAB PO SCH (21:04)
[2017-07-29] VITALS: BP 115/54; PULSE 69; RESP 20; TEMP 98.4; O2SAT 97
[2017-07-29] MEDS: CHLORHEXIDINE GLUCONATE 2 % 1 PACK (2 CLOTHS) TOP SCH (03:26)
[2017-07-29 03:42] VITALS: PULSE 65
[2017-07-29 04:00] VITALS: BP 109/56; PULSE 72; RESP 17; TEMP 99.2; O2SAT 94
[2017-07-29] MEDS: RESP: ALBUTEROL 2.5 MG/IPRATROPIUM 0.5 MG NEB (SCH) NEB (05:55)
[2017-07-29 08:00] VITALS: BP 116/58; PULSE 71; PULSE 73; RESP 20; TEMP 98.5; O2SAT 97
[2017-07-29] MEDS: FOLIC ACID 1 MG TAB PO SCH (08:42)
[2017-07-29] MEDS: CHOLECALCIFEROL (VIT D3) 1000 UNIT TAB PO SCH (08:42)
[2017-07-29] MEDS: POTASSIUM CHLORIDE 20 MEQ CONTROLLED RELEASE TAB PO SCH (08:42)
[2017-07-29] MEDS: HEPARIN SODIUM - SQ 10,000 UNITS/ML VIAL SQ SCH (08:42)
[2017-07-29] MEDS: CALCIUM/VITAMIN D 250 MG/125 U TAB PO SCH (08:42)
[2017-07-29] MEDS: SODIUM CHLORIDE 0.9% FLUSH 10 ML FLUSH IV FLUSH SCH (08:43)
[2017-07-29] MEDS: DOCUSATE SODIUM 50 MG/SENNA 8.6 MG TAB PO SCH (08:43)
[2017-07-29] MEDS: ASPIRIN EC 81 MG TABEC PO SCH (08:43)
[2017-07-29] MEDS: FUROSEMIDE 20 MG TAB PO SCH (08:43)
[2017-07-29] MEDS: FLUTICASONE PROPIONATE 50 MCG/ACT 16 GM NASAL SPRAY EACH NARE SCH (08:45)
--- NOTE | 2017-07-29 09:21 | HHI.PR ---
Subjective Remarks Processor Helper notes: This is a 82-year-old female with known history of rheumatoid arthritis, congestive heart failure, hypotension who presented to hospital because of fever and chills. Patient states that she is in normal state of health when she flew down here from [place] yesterday. While she was on a plane she developed fever and rigors. Patient states when she was walking yesterday she was very cold because of the eardrops at the airport. He stated a hotel last night and she did not improve and she continued to have chills and rigors. Because of that reason she came to the ER for evaluation. Patient had workup done emergency department found to have multiple abnormal findings with significant hypotension, however patient states that she has low blood pressure on a regular basis and this was diagnosed in April in [place]. Patient did have acute renal failure and after CT scan was performed to indicated patient had obstructed uropathy of the left ureter with multiple organ failure to include hypotension, liver enzyme elevation, renal failure. Patient was given minimal IV bolus in the emergency department, will give further IV fluid for blood pressure management. However patient does have history of hypotension which this could be her normal blood pressure. Patient was found to have elevated troponin with left bundle branch block on EKG. Cardiology was consulted for recommendations. Patient recommended ICU admission for critical care management. Patient be transferred to [facility] for continued care. 07/[address] abdomen/pelvis yesterday which showed obstructive uropathy 2nd left ureter stone s/p left ureteral stent placement last night. She is on Neosyn 40 mics. T:100.7 07/23 No events overnight. Awake and alert. Off Neosyn. Tmax 102. 07/24 Patient is lying in bed in [facility]. T:100.2 last night. 07/25 No events overnight. Renal function is improving with Cr: 1.12, WBC is trending down. 07/26: Afebrile. Resting in bed in no acute distress. On 1 L nasal cannula. No current complaints. Tolerating diet. 07/27: Tmax 100.4. Currently on 2 L nasal cannula. Saturations 94%. Still weak but able to ambulate within the room. Discussed with at bedside. Plan to leave back to [place] next . Hospitalist Notes: 07/28: Seen in her bedroom, discussed with her and nurse Miss Baekr, as per ID specialist with Complicated Bacteremic UTI secondary to E Coli in the setting of obstructive Uropathy secondary to Kidney stones, Persistent high grade bacteremia despite appropriate coverage , Status post Left ureter stent placement, discontinued Zosyn, started on Ceftriaxone and repeated blood cultures to document clearance. Urology specialist signed off the case. 07/29: Seen in her bedroom in the presence of her Son Mr. Tirso De Anda Barley no nausea, vomit or diarrhea, discussed with Infectious Disease specialist doctor Ainsley leo to go home clear for discharge and placed. Objective Vital Signs Date Time Temp Pulse Resp B/P (MAP) Pulse Ox O2 Delivery O2 Flow Rate FiO2 07/29/17 04:00 99.2 72 17 109/56 (73) 94 07/29/17 03:42 65 07/29/17 00:00 98.4 69 20 115/54 (74) 97 07/28/17 23:40 73 07/28/17 20:00 83 07/28/17 19:46 98 07/28/17 16:02 97.5 85 18 115/61 (79) 94 07/28/17 16:00 86 07/28/17 12:36 97.8 70 18 115/55 (75) 96 07/28/17 12:09 73 I/O 07/28/17 07/28/17 07/28/17 07/29/17 07/29/17 07/29/17 07:00 15:00 23:00 07:00 15:00 23:00 Intake Total 700 ml 240 ml Output Total 800 ml Balance -800 ml 700 ml 240 ml Intake Oral 600 ml 240 ml IV Total 100 ml Output Urine Total 800 ml # Voids 4 2 # Bowel Movements 1 0 Result Diagram: 07/27/17 0316 07/27/17 0316 Imaging Last Impressions Renal Ultrasound 07/25/17 0000 Signed Impressions: Service Date/Time: Tuesday, July 25, 2017 14:43 - CONCLUSION: 1. Apparent ureteral stent in the bladder. Bladder debris. Large post void residual. Hong Ma MD Chest X-Ray 07/25/17 0000 Signed Impressions: Service Date/Time: Tuesday, July 25, 2017 07:54 - CONCLUSION: 1. Increase in basilar airspace consolidation and small effusions since comparison from July 21. Heart size is enlarged. Differential diagnosis includes mild congestive heart failure. Hong Ma MD Gall Bladder Ultrasound 07/21/17 1812 Signed Impressions: Service Date/Time: Friday, July 21, 2017 20:50 - CONCLUSION: 1. Cholelithiasis without sonographic evidence to suggest acute cholecystitis. Luis Fernando Torres Jr., MD Abdomen/Pelvis CT 07/21/17 0000 Signed Impressions: Service Date/Time: Friday, July 21, 2017 13:28 - CONCLUSION: 8 x 5 mm calculus left ureter level of L4 with secondary obstructive uropathy. Gallstones. Uncomplicated diverticuli of the colon. Degenerative changes of the lumbar spine. Edward Sims MD Procedures Status post Left ureter stent placement Other Results Laboratory Tests Test 07/21/17 12:24 07/21/17 18:25 07/21/17 19:30 07/22/17 00:36 Urine Collection Type CLEAN CATCH Urine Color YELLOW Urine Turbidity MOD Urine pH 5.0 Urine Specific [place] 1.025 Urine Protein 30 mg/dL Urine Glucose (UA) NEG mg/dL Urine Ketones TRACE mg/dL Urine Occult Blood LARGE Urine Nitrite NEG Urine Bilirubin NEG Urine Leukocyte Esterase MOD Urine RBC 100-200 /hpf Urine WBC 25-49 /hpf Urine WBC Clumps MOD Urine Squamous Epithelial Cells 0-5 /hpf Urine Renal Epithelial Cells > 8 /hpf Urine Bacteria MANY /hpf Urine Yeast (Budding) FEW Microscopic Urinalysis Comment CULTURE INDICATED Urine Collection Time 12:24 Creatine Kinase MB % 2.7 % Nasal Screen MRSA (PCR) MRSA NOT DETECTED Lactic Acid Level 1.9 mmol/L Total Creatine Kinase 187 U/L Creatine Kinase MB 8.6 NG/ML Troponin I 0.91 NG/ML Test 07/22/17 05:38 07/23/17 10:20 07/24/17 08:18 07/25/17 04:10 Toxic Vacuolation PRESENT Prothrombin Time 10.7 SEC Prothromb Time International Ratio 1.1 RATIO Activated Partial Thromboplast Time 29.4 SEC Fibrinogen 705 mg/dL Tear Drop Cells 1+ Neutrophils (%) (Auto) 78.6 % Lymphocytes (%) (Auto) 6.7 % Monocytes (%) (Auto) 13.9 % Eosinophils (%) (Auto) 0.6 % Basophils (%) (Auto) 0.2 % Neutrophils # (Auto) 7.7 TH/MM3 Lymphocytes # (Auto) 0.7 TH/MM3 Monocytes # (Auto) 1.4 TH/MM3 Eosinophils # (Auto) 0.1 TH/MM3 Basophils # (Auto) 0.0 TH/MM3 Blood Urea Nitrogen 31 MG/DL Creatinine 1.12 MG/DL Random Glucose 82 MG/DL Total Protein 4.6 GM/DL Albumin 1.8 GM/DL Calcium Level 7.3 MG/DL Phosphorus Level 2.1 MG/DL Alkaline Phosphatase 196 U/L Aspartate Amino Transf (AST/SGOT) 27 U/L Alanine Aminotransferase (ALT/SGPT) 31 U/L Total Bilirubin 1.5 MG/DL Sodium Level 141 MEQ/L Potassium Level 3.3 MEQ/L Chloride Level 109 MEQ/L Carbon Dioxide Level 23.7 MEQ/L Test 07/26/17 02:06 07/27/17 03:16 CBC Comment AUTO DIFF Differential Total Cells Counted 100 Neutrophils % (Manual) 82 % Band Neutrophils % 5 % Lymphocytes % 6 % Monocytes % 5 % Neutrophils # (Manual) 9.0 TH/MM3 Metamyelocytes 1 % Differential Comment FINAL DIFF MANUAL Plasma Cells 1 % Dohle Bodies PRESENT Platelet Estimate LOW Platelet Morphology Comment NORMAL Ovalocytes 1+ White Blood Count 10.0 TH/MM3 Red Blood Count 2.59 MIL/MM3 Hemoglobin 9.1 GM/DL Hematocrit 26.2 % Mean Corpuscular Volume 101.4 FL Mean Corpuscular Hemoglobin 35.1 PG Mean Corpuscular Hemoglobin Concent 34.7 % Red Cell Distribution Width 13.7 % Platelet Count 122 TH/MM3 Mean Platelet Volume 9.9 FL Blood Urea Nitrogen 23 MG/DL Creatinine 0.82 MG/DL Random Glucose 112 MG/DL Total Protein 5.3 GM/DL Calcium Level 7.3 MG/DL Phosphorus Level 2.5 MG/DL Magnesium Level 2.5 MG/DL Sodium Level 141 MEQ/L Potassium Level 3.9 MEQ/L Chloride Level 108 MEQ/L Carbon Dioxide Level 24.4 MEQ/L Anion Gap 9 MEQ/L Estimat Glomerular Filtration Rate 67 ML/MIN Protein Corrected Calcium 8.3 MG/DL Objective Remarks GENERAL: No acute distress. SKIN: Warm and dry. No rash HEAD: Normocephalic. EYES: Pupils equally round and reactive about 2 mm bilaterally. NECK: Supple, trachea midline. No JVD or lymphadenopathy. CARDIOVASCULAR: Regular rate and rhythm S1, S2 no S4. Without murmurs, gallops , or rubs. RESPIRATORY: Breath sounds equal bilaterally. No accessory muscle use. GASTROINTESTINAL: Abdomen soft, non-tender, nondistended. MUSCULOSKELETAL: No significant peripheral edema. Neuro: Awake and alert. Strength appears equal symmetric. Normal sensation Medications and IVs Current Medications Medications (Trade) Dose Ordered Sig/Bill Route Start Time Stop Time Status Last Admin (NS Flush) 2 ml UNSCH PRN IV FLUSH 07/21/17 15:45 (NS Flush) 2 ml BID IV FLUSH 07/21/17 21:00 07/29/17 08:43 (Zofran Inj) 4 mg Q6H PRN IV PUSH 07/21/17 15:45 (Restoril) 15 mg HS PRN PO 07/21/17 15:45 Miscellaneous Information 1 Q361D XX 07/21/17 15:45 (Chlorhexidine 2% Cloth) Taper DAILY@04 TOP 07/22/17 04:00 07/18/18 03:59 07/26/17 04:00 (Chlorhexidine 2% Cloth) 3 pack UNSCH PRN TOP 07/21/17 15:45 (Summer-Colace) 1 tab BID PO 07/21/17 21:00 07/29/17 08:43 (Milk Of Magnesia Liq) 30 ml Q12H PRN PO 07/21/17 15:45 (Senokot) 17.2 mg Q12H PRN PO 07/21/17 15:45 (Dulcolax Supp) 10 mg DAILY PRN RECTAL 07/21/17 15:45 (Lactulose Liq) 30 ml DAILY PRN PO 07/21/17 15:45 (Pepcid) 20 mg HS PO 07/21/17 21:00 07/28/17 21:04 Phenylephrine HCl 40 mg/Dextrose 500 ml @ 30 mls/hr TITRATE PRN IV 07/21/17 18:15 07/21/17 18:44 (Brethine Inj) 1 mg UNSCH PRN SQ 07/21/17 18:15 (D50w (Vial) Inj) 50 ml UNSCH PRN IV PUSH 07/22/17 08:30 (Glucagon Inj) 1 mg UNSCH PRN OTHER 07/22/17 08:30 (Duoneb Neb) 1 ampule Q6HR NEB NEB 07/25/17 10:00 07/29/17 05:55 Ceftriaxone Sodium 2000 mg/ Sodium Chloride 100 ml @ 200 mls/hr Q24H IV 07/25/17 15:00 07/28/17 14:06 (Ecotrin Ec) 81 mg DAILY PO 07/27/17 09:00 07/29/17 08:43 (Vitamin D3) 1,000 units DAILY PO 07/27/17 09:00 07/29/17 08:42 (Folate) 1 mg BID PO 07/27/17 09:00 07/29/17 08:42 (Oscal-D 250-125) 500 mg DAILY PO 07/27/17 09:00 07/29/17 08:42 Patient Own Medication PT OWN MED: Tablet 5 mg levocetiriz... DAILY PO 07/27/17 09:00 (Tylenol) 650 mg Q6H PRN PO 07/26/17 22:45 (Albuterol Neb) 2.5 mg Q2HR NEB PRN NEB 07/26/17 22:45 (Lasix) 40 mg EVERY OTHER DAY PO 07/28/17 09:00 07/28/17 08:57 (Lasix) 20 mg EVERY OTHER DAY PO 07/27/17 09:00 07/29/17 08:43 (KCl) 20 meq DAILY PO 07/27/17 09:00 07/29/17 08:42 (Heparin Inj) 5,000 units Q12HR SQ 07/27/17 09:00 07/29/17 08:42 (Rheumatrex) 12.5 mg Q7D PO 07/30/17 09:00 (Flonase Warren Spr) 1 spray DAILY EACH NARE 07/28/17 09:00 07/29/17 08:45 (Plaquenil) 200 mg HS PO 07/27/17 21:00 07/28/17 21:04 A/P Assessment and Plan 1. Atrial fibrillation at this time on Normal sinus rhythm, 2. CHF EF 55-60%, Grade 1 Diastolic dysfunction, severe pulmonary hypertension PAP >70 mm Hg. Cardiology signed off the case 3. Hypertension developed Hypotension on hold Lisinopril 1.25 mg daily.but continue Aspirin 81 mg daily. continue Lasix, controlled. 4. Hyperlipidemia no on Statins. at this time. 5. Non ST elevation SC, Left Bundle branch block, Cardiology signed off the case continue Aspirin. 6. Moderate to severe Pulmonary Hypertension with PAP greater than 70 for outpatient workup with Primary care physician 7. Elevated Transaminases and cholelithiasis, US liver with Cholelithiasis without sonographic evidence to suggest acute cholecystitis was left NPO and GI prophylaxis with PPIs. on hold any kind of Statin by now. follow by PCP to start this medicine. 8. Obstructive Uropathy with renal stone in left ureter/Acute renal failure. Status post Left Ureter stent placement 07/21, 9. Status post Septic shock, Escherichia Coli bacteremia, leukocytosis with Bandemia, lactic acidosis, UTI, Ceftriaxone 2 grams IV daily ID specialist following, BC 07/21 E coli Blood culture from 07/25 no growth to date, Urine Culture 07/21 E. Coli, seen by ID specialist doctor Ainsley and recommended for Augmentin for seven more days to complete 14. 10. Thrombocytopenia and Anemia probable secondary to Sepsis Improving. 11. RA by history has Methotrexate 12.5 mg weekly on Sundays, continue Hydroxychloroquine 200 mg at night. DVT prevention with SCD, heparin subcutaneous GI protection: Famotidine Discharge Home now. Discussed with Ad Setter patient from [place] she is in a hotel instructed to come to ER if any issue, but she will fly to [place] next week. not able to set for HHC for PT as recommended by PT specialist will go and be seen by her Primary Care physician on arrival to [place]. Discussed with Patient and her Son in the room Mr. Murry Evelyn Discharge Planning Discharge Now Jerod Vick MD Jul 29, 2017 09:21
[2017-07-29 12:00] VITALS: BP 112/72; PULSE 77; RESP 20; TEMP 97.7; O2SAT 98
--- NOTE | 2017-07-29 15:58 | HHI.IDPN ---
Subjective Subjective Remarks feels well ambulating urinating OK no fever Antibiotics CFTX Allergies: Coded Allergies: ciprofloxacin (Verified Allergy, Unknown, 07/21/17) Objective . Vital Signs Date Time Temp Pulse Resp B/P (MAP) Pulse Ox O2 Delivery O2 Flow Rate FiO2 07/29/17 12:00 97.7 77 20 112/72 (85) 98 07/29/17 08:00 98.5 73 20 116/58 (77) 97 07/29/17 04:00 99.2 72 17 109/56 (73) 94 07/29/17 03:42 65 07/29/17 00:00 98.4 69 20 115/54 (74) 97 07/28/17 23:40 73 07/28/17 20:00 83 07/28/17 19:46 98 07/28/17 16:02 97.5 85 18 115/61 (79) 94 07/28/17 16:00 86 Imaging Last Impressions Renal Ultrasound 07/25/17 0000 Signed Impressions: Service Date/Time: Tuesday, July 25, 2017 14:43 - CONCLUSION: 1. Apparent ureteral stent in the bladder. Bladder debris. Large post void residual. Hong Ma MD Chest X-Ray 07/25/17 0000 Signed Impressions: Service Date/Time: Tuesday, July 25, 2017 07:54 - CONCLUSION: 1. Increase in basilar airspace consolidation and small effusions since comparison from July 21. Heart size is enlarged. Differential diagnosis includes mild congestive heart failure. Hong Ma MD Gall Bladder Ultrasound 07/21/17 1812 Signed Impressions: Service Date/Time: Friday, July 21, 2017 20:50 - CONCLUSION: 1. Cholelithiasis without sonographic evidence to suggest acute cholecystitis. Luis Fernando Torres Jr., MD Abdomen/Pelvis CT 07/21/17 0000 Signed Impressions: Service Date/Time: Friday, July 21, 2017 13:28 - CONCLUSION: 8 x 5 mm calculus left ureter level of L4 with secondary obstructive uropathy. Gallstones. Uncomplicated diverticuli of the colon. Degenerative changes of the lumbar spine. Edward Sims MD Physical Exam CONSTITUTIONAL/GENERAL: This is an adequately nourished patient, in no apparent distress. TUBES/LINES/DRAINS: SKIN: No jaundice, rashes, or lesions. Skin temperature appropriate. Not diaphoretic. CARDIOVASCULAR: Regular rate and rhythm without murmurs, gallops, or rubs. No JVD. Peripheral pulses symmetric. RESPIRATORY/CHEST: Symmetric, unlabored respirations. Clear to auscultation. Breath sounds equal bilaterally. No wheezes, rales, or rhonchi. GASTROINTESTINAL: Abdomen soft, non-tender, nondistended. GENITOURINARY: Without palpable bladder distension. MUSCULOSKELETAL: Extremities without clubbing, cyanosis, or edema. NEUROLOGICAL: Awake and alert. Motor and sensory grossly within normal limits. Follows commands. Clear speech. Moves all extremities. PSYCHIATRIC: No obvious anxiety/depression. no apparent hallucinations or other psychotic thought process. Assessment & Plan Remarks Assessment and Plan Assessment and Plan Complicated bacteremic UTI 2/2 E.coli in the settings of obstructive uropathy 2 /2 kidney stone - persistent high grade bacteremia despite appropriate coverage Sp L ureter stent placement ARF: resolved Leukocytpsis Persistent bacteremia : resolved ; US unremarkable dc CFTX Bactrim not an option 2/2 methotrexate; will have to use augmentin to complete 14 days of tx OK to dc from ID standpoint Sakshi Schmitz MD Jul 29, 2017 15:58
[2017-07-29 16:00] VITALS: BP 141/64; PULSE 70; RESP 20; TEMP 98.4; O2SAT 97
--- NOTE | 2017-07-29 16:07 | HHI.FF ---
Face to Face Verification Diagnosis: (1) NSTEMI (non-ST elevated myocardial infarction) (2) Ureteral stone with hydronephrosis (3) Septic shock (4) Acute renal failure (5) Obstructive uropathy (6) Sepsis Physical Therapy Order: Evaluate and Treat, Improve ambulation, Strength and gait training Home Health Nursing Order: Medical education Signs/symptoms of disease process Medication education-adverse effect Nursing assessment with vital signs I have seen patient Kelli Rivas on 07/29/17. My clinical findings support the need for the requested home health care services because: Ltd mobility - disease progression I certify that my clinical findings support that this patient is homebound because: Unsafe to leave home unassisted Jerod Vick MD Jul 29, 2017 16:07
[2017-07-29] MEDS ORDERED: FAMO20TA2 PO (16:09)
[2017-07-29] MEDS ORDERED: AUGM875T3 PO (16:09)
--- NOTE | 2017-07-29 16:21 | HHI.DS ---
Discharge Summary Admission Date Jul 21, 2017 at 12:53 Discharge Date: Jul 29, 2017 Admitting Diagnosis hypotension, nstemi, renal failure (1) Septic shock ICD Code: A41.9 - Sepsis, unspecified organism; R65.21 - Severe sepsis with septic shock Diagnosis: Principal (2) Non-ST elevated myocardial infarction ICD Code: I21.4 - Non-ST elevation (NSTEMI) myocardial infarction Diagnosis: Principal (3) Obstructive uropathy ICD Code: N13.9 - Obstructive and reflux uropathy, unspecified Diagnosis: Principal (4) Acute renal failure ICD Code: N17.9 - Acute kidney failure, unspecified Diagnosis: Principal (5) Elevated liver enzymes ICD Code: R74.8 - Abnormal levels of other serum enzymes Diagnosis: Principal (6) Lactic acidosis ICD Code: E87.2 - Acidosis Diagnosis: Principal Status: Acute (7) Leukocytosis ICD Code: D72.829 - Elevated white blood cell count, unspecified Diagnosis: Principal Status: Acute Procedures s/p left ureteral stent placement Brief History - From Admission This is a 82-year-old female with known history of rheumatoid arthritis, congestive heart failure, hypotension who presented to hospital because of fever and chills. Patient states that she is in normal state of health when she flew down here from [place] yesterday. While she was on a plane she developed fever and rigors. Patient states when she was walking yesterday she was very cold because of the eardrops at the airport. He stated a hotel last night and she did not improve and she continued to have chills and rigors. Because of that reason she came to the ER for evaluation. Patient had workup done emergency department found to have multiple abnormal findings with significant hypotension, however patient states that she has low blood pressure on a regular basis and this was diagnosed in April in [place]. Patient did have acute renal failure and after CT scan was performed to indicated patient had obstructed uropathy of the left ureter with multiple organ failure to include hypotension, liver enzyme elevation, renal failure. Patient was given minimal IV bolus in the emergency department, will give further IV fluid for blood pressure management. However patient does have history of hypotension which this could be her normal blood pressure. Patient was found to have elevated troponin with left bundle branch block on EKG. Cardiology was consulted for recommendations. Patient recommended ICU admission for critical care management. Patient be transferred to [facility] for continued care. CBC/BMP: 07/27/176 07/27/176 Significant Findings Laboratory Tests Test 07/27/17 03:16 Red Blood Count 2.59 MIL/MM3 (4.00-5.30) Hemoglobin 9.1 GM/DL (11.6-15.3) Hematocrit 26.2 % (35.0-46.0) Mean Corpuscular Volume 101.4 FL (80.0-100.0) Mean Corpuscular Hemoglobin 35.1 PG (27.0-34.0) Platelet Count 122 TH/MM3 (150-450) Blood Urea Nitrogen 23 MG/DL (7-18) Random Glucose 112 MG/DL (74-106) Total Protein 5.3 GM/DL (6.4-8.2) Calcium Level 7.3 MG/DL (8.5-10.1) Chloride Level 108 MEQ/L (98-107) Estimat Glomerular Filtration Rate 67 ML/MIN (>89) Protein Corrected Calcium 8.3 MG/DL (8.5-10.1) Imaging Last Impressions Renal Ultrasound 07/25/17 0000 Signed Impressions: Service Date/Time: Tuesday, July 25, 2017 14:43 - CONCLUSION: 1. Apparent ureteral stent in the bladder. Bladder debris. Large post void residual. Hong Ma MD Chest X-Ray 07/25/17 0000 Signed Impressions: Service Date/Time: Tuesday, July 25, 2017 07:54 - CONCLUSION: 1. Increase in basilar airspace consolidation and small effusions since comparison from July 21. Heart size is enlarged. Differential diagnosis includes mild congestive heart failure. Hong Ma MD Gall Bladder Ultrasound 07/21/[id number] Signed Impressions: Service Date/Time: Friday, July 21, 2017 20:50 - CONCLUSION: 1. Cholelithiasis without sonographic evidence to suggest acute cholecystitis. Luis Fernando Torres Jr., MD Abdomen/Pelvis CT 07/21/17 0000 Signed Impressions: Service Date/Time: Friday, July 21, 2017 13:28 - CONCLUSION: 8 x 5 mm calculus left ureter level of L4 with secondary obstructive uropathy. Gallstones. Uncomplicated diverticuli of the colon. Degenerative changes of the lumbar spine. Edward Sims MD PE at Discharge GENERAL: No acute distress. SKIN: Warm and dry. No rash HEAD: Normocephalic. EYES: Pupils equally round and reactive about 2 mm bilaterally. NECK: Supple, trachea midline. No JVD or lymphadenopathy. CARDIOVASCULAR: Regular rate and rhythm S1, S2 no S4. Without murmurs, gallops , or rubs. RESPIRATORY: Breath sounds equal bilaterally. No accessory muscle use. GASTROINTESTINAL: Abdomen soft, non-tender, nondistended. MUSCULOSKELETAL: No significant peripheral edema. Neuro: Awake and alert. Strength appears equal symmetric. Normal sensation Hospital Course Transaction Manager notes: This is a 82-year-old female with known history of rheumatoid arthritis, congestive heart failure, hypotension who presented to hospital because of fever and chills. Patient states that she is in normal state of health when she flew down here from [place] yesterday. While she was on a plane she developed fever and rigors. Patient states when she was walking yesterday she was very cold because of the eardrops at the airport. He stated a hotel last night and she did not improve and she continued to have chills and rigors. Because of that reason she came to the ER for evaluation. Patient had workup done emergency department found to have multiple abnormal findings with significant hypotension, however patient states that she has low blood pressure on a regular basis and this was diagnosed in April in [place]. Patient did have acute renal failure and after CT scan was performed to indicated patient had obstructed uropathy of the left ureter with multiple organ failure to include hypotension, liver enzyme elevation, renal failure. Patient was given minimal IV bolus in the emergency department, will give further IV fluid for blood pressure management. However patient does have history of hypotension which this could be her normal blood pressure. Patient was found to have elevated troponin with left bundle branch block on EKG. Cardiology was consulted for recommendations. Patient recommended ICU admission for critical care management. Patient be transferred to [facility] for continued care. 07/[address] abdomen/pelvis yesterday which showed obstructive uropathy 2nd left ureter stone s/p left ureteral stent placement last night. She is on Neosyn 40 mics. T:100.7 07/23 No events overnight. Awake and alert. Off Neosyn. Tmax 102. 07/24 Patient is lying in bed in NAD. T:100.2 last night. 07/25 No events overnight. Renal function is improving with Cr: 1.12, WBC is trending down. 07/26: Afebrile. Resting in bed in no acute distress. On 1 L nasal cannula. No current complaints. Tolerating diet. 07/27: Tmax 100.4. Currently on 2 L nasal cannula. Saturations 94%. Still weak but able to ambulate within the room. Discussed with at bedside. Plan to leave back to [place] next . Hospitalist Notes: 07/28: Seen in her bedroom, discussed with her and nurse Olivia, as per ID specialist with Complicated Bacteremic UTI secondary to E Coli in the setting of obstructive Uropathy secondary to Kidney stones, Persistent high grade bacteremia despite appropriate coverage , Status post Left ureter stent placement, discontinued Zosyn, started on Ceftriaxone and repeated blood cultures to document clearance. Urology specialist signed off the case. 07/29: Seen in her bedroom in the presence of her Son Mr. Tirso De Anda Barley no nausea, vomit or diarrhea, discussed with Infectious Disease specialist doctor Ainsley leo to go home clear for discharge and placed. Assessment and Plan 1. Atrial fibrillation at this time on Normal sinus rhythm, 2. CHF EF 55-60%, Grade 1 Diastolic dysfunction, severe pulmonary hypertension PAP >70 mm Hg. Cardiology signed off the case 3. Hypertension developed Hypotension on hold Lisinopril 1.25 mg daily.but continue Aspirin 81 mg daily. continue Lasix, controlled. 4. Hyperlipidemia no on Statins. at this time. 5. Non ST elevation [place], Left Bundle branch block, Cardiology signed off the case continue Aspirin. 6. Moderate to severe Pulmonary Hypertension with PAP greater than 70 for outpatient workup with Primary care physician 7. Elevated Transaminases and cholelithiasis, US liver with Cholelithiasis without sonographic evidence to suggest acute cholecystitis was left NPO and GI prophylaxis with PPIs. on hold any kind of Statin by now. follow by PCP to start this medicine. 8. Obstructive Uropathy with renal stone in left ureter/Acute renal failure. Status post Left Ureter stent placement 07/21, 9. Status post Septic shock, Escherichia Coli bacteremia, leukocytosis with Bandemia, lactic acidosis, UTI, Ceftriaxone 2 grams IV daily ID specialist following, BC 07/21 E coli Blood culture from 07/25 no growth to date, Urine Culture 07/21 E. Coli, seen by ID specialist doctor Ainsley and recommended for Augmentin for seven more days to complete 14. 10. Thrombocytopenia and Anemia probable secondary to Sepsis Improving. 11. RA by history has Methotrexate 12.5 mg weekly on Sundays, continue Hydroxychloroquine 200 mg at night. DVT prevention with SCD, heparin subcutaneous GI protection: Famotidine Discharge Home now. Discussed with Information Systems Analyst patient from [place] she is in a hotel instructed to come to ER if any issue, but she will fly to [place] next week. not able to set for C for PT as recommended by PT specialist will go and be seen by her Primary Care physician on arrival to [place]. Discussed with Patient and her Son in the room Mr. Jeanmarie Rivas Discharge Planning Discharge Now Pt Condition on Discharge: Good Discharge Disposition: Discharge Home Discharge Time: > 30 minutes Discharge Instructions DIET: Follow Instructions for: Heart Healthy Diet Activities you can perform: Regular-No Restrictions Jerod Vick MD Jul 29, 2017 16:21
[2017-07-29] MEDS ORDERED: AMOXICILLIN/CLAVULANATE K 875 MG TAB PO SCH (21:00)
[2017-07-29] MEDS ORDERED: SULFAMETHOXAZOLE-TRIMETHOPRIM DS 800-160 MG TAB PO SCH (21:00)
[2017-07-30] MEDS ORDERED: METHOTREXATE 2.5 MG TAB PO SCH (09:00)
== END 2017-07-29 18:14 | disposition home or self-care (01) | DRG 871 ==
LOC: PHED 11:06 → PHEDA 12:53 → HPAC 16:21 → HIMW 18:58 → N04B 07-27 18:04
PROVIDERS: ADMIT Internal Medicine Critical Care Medicine; ATTEND Internal Medicine
PROC: 0T778DZ Dilation of Left Ureter with Intraluminal Device, Via Natural or Artificial Opening Endoscopic (ICD-10-PCS; principal; 2017-07-21 17:05)
DX: A41.51 Sepsis due to Escherichia coli [E. coli] (principal); R65.21 Severe sepsis with septic shock; I21.4 Non-ST elevation (NSTEMI) myocardial infarction; N17.9 Acute kidney failure, unspecified; I27.20 Pulmonary hypertension, unspecified; D69.6 Thrombocytopenia, unspecified; I50.30 Unspecified diastolic (congestive) heart failure; E87.2 Acidosis; I11.0 Hypertensive heart disease with heart failure; N39.0 Urinary tract infection, site not specified; N13.2 Hydronephrosis with renal and ureteral calculous obstruction; D64.9 Anemia, unspecified; M06.9 Rheumatoid arthritis, unspecified; I44.7 Left bundle-branch block, unspecified; I48.91 Unspecified atrial fibrillation; K80.20 Calculus of gallbladder without cholecystitis without obstruction; R74.0 Nonspecific elevation of levels of transaminase and lactic acid dehydrogenase [LDH]
CPT/HCPCS: 71045; 74176; 76705; 76775; 80048; 80053; 81001; 82550; 82552; 83605; 83735; 84100; 84132; 84155; 84484; 85007; 85025; 85027; 85384; 85610; 85730; 87040; 87077; 87086; 87186; 87205; 87641; 87804; 93005; 93306; 94150; 94640; 94664; 96365; 96368; 99292; C1769; C2617; J0696; J1644; J1940; J2370; J2543; J3370; J3475; J7040; J7042; J7050; J7060; J7120